=== PATIENT | female | born 1975 | race Caucasian/White ===

== ENCOUNTER 2020-08-14 17:36 | Outpatient (REF) | payer OTHER, SELFPAY | END 2020-08-14 17:37 | disposition home or self-care (01) | LOC: HO.LAB 17:36 | PROVIDERS: PCP Internal Medicine; Visit Provider Internal Medicine | DX: Z20.828 Contact with and (suspected) exposure to other viral communicable diseases (principal) | CPT/HCPCS: C9803; U0003 ==

== ENCOUNTER 2020-10-31 15:40 | Outpatient (REF) | payer OTHER, SELFPAY ==
--- NOTE | ~2020-10-31 | US_ITS ---
EXAMINATION: US THYROID CLINICAL INFORMATION: Nontoxic goiter, unspecified. COMPARISON: Ultrasound soft tissue head/neck thyroid dated 03/12/2010. TECHNIQUE: Linear transducer grayscale and color Doppler examination with attention to the region of the thyroid. FINDINGS: SIZE: Measurements of the thyroid lobes and nodules are given in sagittal, anteroposterior and transverse dimensions respectively. Right Thyroid Lobe: 5.6 x 1.2 x 1.7 cm, volume 6.0 mL. Previously 5.1 x 1.1 x 1.9 cm, volume 5.6 mL. Parenchyma: The gland echotexture is homogeneous. Thyroid vascularity is normal. Left Thyroid Lobe: 5.3 x 1.5 x 2.0 cm, volume 8.3 mL. Previously 5.0 x 1.3 x 1.9 cm, volume 6.5 mL. Parenchyma: The gland echotexture is homogeneous. Thyroid vascularity is normal. Isthmus: 0.3 cm in maximum AP dimension. Previously 0.2 cm. Estimated total number of nodules greater than or equal to 1 cm: 0. International Marketing Intern nodules are described as follows: 1. Location: Right superior. Size: 0.9 x 0.8 x 0.9 cm, volume 0.3 mL. Previously: 1.0 x 0.6 x 0.7 cm, volume 0.2 mL. Nodule characteristics: Composition: Mixed cystic and solid (1). Echogenicity: Hypoechoic (2). Shape: Not taller than wide (0). Margins: Smooth (0). Echogenic Foci: None (0). ACR TI-RADS total points: 3 ACR TI-RADS category: 3 Significant change in size (>/= 20% in 2 dimensions and minimal increase of 2 mm): No Change in features: No Change in ACR TI-RADS risk category: No 2. Location: Right mid. Size: 0.6 x 0.4 x 0.5 cm, volume 0.1 mL. Previously: 0.8 x 0.5 x 0.6 cm, volume 0.1 mL. Nodule characteristics: Composition: Spongiform (0). Echogenicity: 2 Shape: 0 Margins: 0 Echogenic Foci: 0 ACR TI-RADS total points: 0 ACR TI-RADS category: 1 Significant change in size (>/= 20% in 2 dimensions and minimal increase of 2 mm): No Change in features: No Change in ACR TI-RADS risk category: No 3. Location: Right inferior. Size: 0.5 x 0.4 x 0.4 cm, volume 0.05 mL. Previously: New since prior study. Nodule characteristics: Composition: Spongiform (0). Echogenicity: 2 Shape: Not taller than wide (0). Margins: No Echogenic Foci: No ACR TI-RADS total points: 0 ACR TI-RADS category: 1 Significant change in size (>/= 20% in 2 dimensions and minimal increase of 2 mm): Change in features: Change in ACR TI-RADS risk category: 4. Location: Left superior. Size: 0.5 x 0.3 x 0.4 cm, volume 0.03 mL. Previously: 0.5 x 0.2 x 0.4 cm, volume 0.02 mL. Nodule characteristics: Composition: Spongiform (0). Echogenicity: 2 Shape: Not taller than wide (0). Margins: No Echogenic Foci: No ACR TI-RADS total points: 0 ACR TI-RADS category: 1 Significant change in size (>/= 20% in 2 dimensions and minimal increase of 2 mm): No Change in features: No Change in ACR TI-RADS risk category: No NODES: There are right cervical lymph nodes. Largest lymph node measures 1.6 cm in transverse dimension which is slightly enlarged. Lymph nodes demonstrate normal ultrasound morphology and flow. US/US thyroid IMPRESSION: Newly appreciated small nodule in the inferior right lobe. Otherwise thyroid nodules are stable. ACR TI-RADS RECOMMENDATIONS: Ultrasound-guided fine-needle aspiration, followup ultrasound, no further follow up. * TR1 (0 point) and TR 2 (2 points): No FNA or follow up * TR3 (3 points): FNA if more than or equal to 2.5 cm in maximum dimension, follow up in 1, 3 and 5 years if 1.5 to 2.4 cm in maximum dimension. * TR4 (4-6 points): FNA if more than or equal to 1.5 cm in maximum dimension, follow up in 1, 2, 3 and 5 years if 1 to 1.4 cm in maximum dimension. * TR5 (more than or equal to 7 points): FNA if more than or equal to 1 cm in maximum dimension, follow up every year for 5 years if 0.5 to 0.9 cm in maximum dimension. * TR3, TR4 or TR5 nodules that are below the size threshold for follow up receive no follow up.
== END 2020-10-31 15:41 | disposition home or self-care (01) ==
LOC: HO.US 15:40
PROVIDERS: Visit Provider Internal Medicine
DX: E04.9 Nontoxic goiter, unspecified (principal)
CPT/HCPCS: 76536

== ENCOUNTER 2021-06-27 10:21 | Outpatient (REF) | payer OTHER, SELFPAY | END 2021-06-27 10:22 | disposition home or self-care (01) | LOC: HO.LAB 10:21 | PROVIDERS: PCP Internal Medicine; Visit Provider Internal Medicine | DX: Z20.822 Contact with and (suspected) exposure to COVID-19 (principal) | CPT/HCPCS: C9803; U0003; U0005 ==

== ENCOUNTER 2021-08-18 14:21 | Emergency (ER) | payer OTHER, SELFPAY ==
--- NOTE | ~2021-08-18 | XR_ITS ---
EXAMINATION: XR CHEST CLINICAL INFORMATION: Upper respiratory infection COMPARISON: 09/03/2019 TECHNIQUE: 2 views of the chest were obtained. FINDINGS: No significant abnormality is noted involving the heart, lungs, mediastinum, bony thorax or soft tissues. XR/XR chest 2V IMPRESSION: Unremarkable examination.
[2021-08-18 14:55] VITALS: BP 174/89; PULSE 94; RESP 18; TEMP 37.1; O2SAT 100; BMI 31.3
[2021-08-18 15:30] LABS: COVID-19 Test Negative (Negative)
--- NOTE | 2021-08-18 17:59 | ED_ITS ---
HPI - URI/Sore Throat General Chief Complaint: Upper Respiratory Symptoms Stated Complaint: flu like Source: patient Mode of arrival: ambulatory Limitations: language barrier History of Present Illness HPI Narrative: 46-year-old female presents with 3 days of upper respiratory symptoms, cough, intermittent fevers and chills. MD elicited complaint: fever, cough, sore throat and nasal congestion Onset (ago): day(s) (3) Consistency: constant Severity: moderate Description of mucous: clear and watery Able to tolerate fluids by mouth: Yes Exacerbating factors: swallowing, exertion and speaking Relieving factors: nothing Associated symptoms: fever, chills, headache, nasal congestion, sore throat and cough Treatments prior to arrival: acetaminophen Related Data Previous Rx's Medication Instructions Recorded lisinopril 10 mg tablet 10 mg PO DAILY #30 tab 10/18/20 loratadine 10 mg tablet 10 mg PO DAILY 30 Days #30 tab 10/18/20 Allergies Allergy/AdvReac Type Severity Reaction Status Date / Time gluten [GLUTEN] Allergy Intermediate HIVES Verified 10/18/20 16:46 ciprofloxacin [From [facility]] Allergy Unknown UNKNOWN Verified 10/18/20 16:46 PEPPERS Allergy Severe HIVES Uncoded 10/18/20 16:46 Review of Systems Review of Systems: Constitutional: positive Fever, positive Chills, positive fatigue, positive Malaise ENT/Mouth: positive sore throat, positive runny nose Eyes: No Discharge Cardiovascular: No Chest Pain, No SOB Respiratory: Positive Cough, No Sputum, positive Wheezing, No Smoke Exposure, No Dyspnea Gastrointestinal: No Nausea, No Vomiting, No Diarrhea Genitourinary: no irregular bleeding, No Dysuria, No Urinary Frequency, No Hematuria, No Urinary Incontinence, No Urgency, No Flank Pain, Musculoskeletal: positive Myalgia Skin: No rash Neuro: No Headache Yes all other systems are reviewed and are negative PMFSH Past Medical History Attestation statement: The following information was validated with the patient. Source: old records reviewed Medical History Allergic rhinitis Essential hypertension Goiter Impaired glucose tolerance Surgical History History of adenoidectomy Family History Family History Mother Hypertension CVD (cardiovascular disease) Breast cancer Pacemaker Father Hypertension Diabetes Parkinson's disease Brother In good health Brother In good health Son In good health Son In good health Daughter In good health Family/Other Chronic mental illness Social History Social History Alcohol intake: never Advance Directives: No Advance Directives Information Provided: Yes Patient : No Physical Exam Vital Signs: Vital Signs: Last Vital Signs Temp 98.8 F 08/18/21 14:55 Pulse 94 08/18/21 14:55 Resp 18 08/18/21 14:55 BP 174/89 H 08/18/21 14:55 Pulse Ox 100 08/18/21 14:55 BMI result Body Mass Index 31.3 Appearance: Alert. Oriented X3. No acute distress. Eyes: Pupils equal, round and reactive to light. ENT: Pharynx normal. Neck: Normal inspection. Neck supple. No cervical lymphadenopathy noted. CVS: Normal heart rate and rhythm. Pulses normal. Respiratory: No respiratory distress. Lung sounds clear to auscultation all lobes. Abdomen: Soft and nontender. Skin: Skin warm and dry. Normal skin color. Normal skin turgor. Extremities: No lower extremity edema. Gait will balance well coordinated. Neuro: No motor deficit. No sensory deficit. Cranial nerves 2-12 intact. Course Course Course Narrative: 46-year-old female presents with upper respiratory symptoms. COVID test negative. Will order x-rays to rule out pneumonia. Lung sounds clear to auscultation all lobes. No chest wall tenderness or pain on inspiration. O2 sat 100%. Low risk for PE. History of clotting deficiency, immuno therapy, surgery, or long periods of inactivity. No prior history of clotting. 7:15 p.m. chest x-rays negative for pneumonia. Plan of care to discharge home with supportive measures. Patient verbalized understanding of and agrees to plan of care discharge home. administrative medical director utilized for all correspondence MDM - URI/Sore Throat Differential Diagnosis Differential diagnosis: Likely upper respiratory infection, otitis media, sinusitis, viral infection, bronchitis, influenza and pharyngitis Medical Records Attestation: I reviewed the patient's medical records. Lab Data Attestation: I reviewed the patient's lab results. Labs: Lab Results 08/18/21 Range/Units 14:59 COVID-19 ([facility]) Negative (Negative) COVID-19 Clin Com See Note Imaging Data Chest x-ray: Attestation: I personally reviewed and interpreted this imaging study as follows: Radiologist's impression: EXAMINATION: XR CHEST CLINICAL INFORMATION: Upper respiratory infection COMPARISON: 09/03/2019 TECHNIQUE: 2 views of the chest were obtained. FINDINGS: No significant abnormality is noted involving the heart, lungs, mediastinum, bony thorax or soft tissues. XR/XR chest 2V IMPRESSION: Unremarkable examination. Discharge Plan Discharge Clinical Impression: Upper respiratory infection Patient Disposition: Home, Self-Care Instructions: Upper Respiratory Infection (ED), Viral Syndrome (ED) Additional Instructions: You were evaluated for upper respiratory symptoms. Her chest x-ray is negative for acute findings requiring emergent intervention. Please alternate Tylenol and Motrin for pain and fever management. Drink plenty of fluids. Follow-up with primary care physician later this week if needed. Thank you for choosing this emergency department for evaluation. Please follow-up with primary care physician as needed. Return to the emergency department for any new, concerning, or worsening symptoms. Prescriptions: No Action lisinopril 10 mg tablet 10 mg PO DAILY Qty: 30 RF: 11 loratadine 10 mg tablet 10 mg PO DAILY 30 Days Qty: 30 RF: 6 Interventions: ED Discharge Assessment Last Done: 08/18/21 19:31 Discharge Date/Time: 08/18/21 19:33
[2021-08-18] MEDS: Ibuprofen 600 MG TABLET PO (18:53)
== END 2021-08-18 19:33 | disposition home or self-care (01) ==
PROVIDERS: Emergency Provider Emergency Medicine Emergency Medical Services; PCP Internal Medicine
DX: J06.9 Acute upper respiratory infection, unspecified (principal); I10 Essential (primary) hypertension; Z20.822 Contact with and (suspected) exposure to COVID-19
CPT/HCPCS: 36415; 71046; 87635; 99283; 99284

== ENCOUNTER 2022-09-17 17:55 | Outpatient (REF) | payer OTHER, SELFPAY ==
[2022-09-17 18:48] LABS: Influenza A PCR NEGATIVE (Negative); Influenza B PCR NEGATIVE (Negative); Resp Syncy Virus RNA Qual PCR NEGATIVE (Negative); SARS COV2 PCR INHOUSE POSITIVE (Negative)
== END 2022-09-17 17:56 | disposition home or self-care (01) ==
LOC: HO.LNP 17:55
PROVIDERS: Visit Provider Internal Medicine
DX: Z20.822 Contact with and (suspected) exposure to COVID-19 (principal); R43.9 Unspecified disturbances of smell and taste
CPT/HCPCS: 0241U

== ENCOUNTER 2022-10-15 09:42 | Outpatient (REF) | payer OTHER, SELFPAY ==
--- NOTE | ~2022-10-15 | MM_ITS ---
EXAMINATION: MM SCREENING DIGITAL BREAST TOMOSYNTHESIS, BILATERAL CLINICAL INFORMATION: Screening. Asymptomatic. Family history breast cancer, mother. The lifetime risk of breast cancer based on the Tyrer-Cuzick Model is 23%. COMPARISON: Mammography: 11/19/2017; outside mammography 12/01/2014 ([facility]). TECHNIQUE: Digital breast tomosynthesis is performed in both the craniocaudal and mediolateral oblique views along with computer-aided detection (CAD). Synthesized 2D images are generated from the tomosynthesis. FINDINGS: There are scattered areas of fibroglandular density (ACR BI-RADS breast composition Category b). Breast tissue composition borders on heterogeneously dense. There is no significant mass or architectural abnormality. Small nodular asymmetry anterior outer right breast on CC view is stable. There are scattered punctate calcifications in each breast again seen. No interval abnormal calcifications. The skin contours are smooth. There is prominent left axillary node on MLO view 2.4 cm diameter with thickening cortex. This is beyond field of view on prior breast imaging. MM/MM tomosynthesis screening BI IMPRESSION: Left: -Breast parenchymal pattern similar to prior studies. -Prominent left axillary node, not previously imaged. Right: -No mammographic evidence of malignancy. ASSESSMENT: BI-RADS 0: Incomplete - Need Additional Imaging Evaluation RECOMMENDATION: 1. Targeted ultrasound left axilla. 2. Radiology department staff will contact the patient for additional imaging. This patient's information was entered into a reminder system with a target due date for their next mammogram.
--- NOTE | ~2022-10-15 | US_ITS ---
EXAMINATION: US THYROID CLINICAL INFORMATION: Nontoxic goiter, unspecified. COMPARISON: Thyroid ultrasound examinations dated October 31, 2020 and March 12, 2010. Fine-needle aspiration dated April 09, 2010. TECHNIQUE: Linear transducer grayscale and color Doppler examination with attention to the region of the thyroid. FINDINGS: SIZE: Measurements of the thyroid lobes and nodules are given in sagittal, anteroposterior and transverse dimensions respectively. Right Thyroid Lobe: 5.2 x 1.2 x 1.9 cm, volume 6.3 mL. Previously 5.6 x 1.2 x 1.7 cm, volume 6.0 mL. Parenchyma: The gland echotexture is homogeneous. Thyroid vascularity is normal. Left Thyroid Lobe: 5.4 x 1.6 x 1.6 cm, volume 7.6 mL. Previously 5.3 x 1.5 x 2.0 cm, volume 8.3 mL. Parenchyma: The gland echotexture is homogeneous. Thyroid vascularity is normal. Isthmus: 0.3 cm in maximum AP dimension. Previously 0.3 cm. Estimated total number of nodules greater than or equal to 1 cm: 1. Rig Manager nodules are described as follows: 1. Location: Right superior. Size: 0.9 x 0.7 x 0.9 cm, volume 0.3 mL. Previously: 0.9 x 0.8 x 0.9 cm, volume 0.3 mL. In 2010 this measured 1.0 x 0.6 x 0.7 cm. Nodule characteristics: Composition: Solid (2). Echogenicity: Very hypoechoic (3). Shape: Not taller than wide (0). Margins: Ill-defined (0). Echogenic Foci: None (0). ACR TI-RADS total points: 5 Previous: 3 ACR TI-RADS category: 4 Previous: 3 Significant change in size (>/= 20% in 2 dimensions and minimal increase of 2 mm or 50% or greater increase in volume): No Change in features: No Change in ACR TI-RADS risk category: No 2. Location: Right mid. Size: 0.7 x 0.3 x 0.6 cm, volume 0.07 mL. Previously: 0.6 x 0.4 x 0.5 cm, volume 0.06 mL. Nodule characteristics: Composition: Solid (2). Echogenicity: Hypoechoic (2). Shape: Not taller than wide (0). Margins: Ill-defined (0). Echogenic Foci: None (0). ACR TI-RADS total points: 4 Previous: 4 ACR TI-RADS category: 4 Previous: 4 Significant change in size (>/= 20% in 2 dimensions and minimal increase of 2 mm or 50% or greater increase in volume): No Change in features: No Change in ACR TI-RADS risk category: No 3. Location: Right inferior. Size: 0.6 x 0.4 x 0.3 cm, volume 0.04 mL. Previously: 0.5 x 0.4 x 0.4 cm, volume 0.04 mL. Nodule characteristics: Composition: Solid (2). Echogenicity: Hypoechoic (2). Shape: Not taller than wide (0). Margins: Ill-defined (0). Echogenic Foci: None (0). ACR TI-RADS total points: 4 Previous: 4 ACR TI-RADS category: 4 Previous: 4 Significant change in size (>/= 20% in 2 dimensions and minimal increase of 2 mm or 50% or greater increase in volume): No Change in features: No Change in ACR TI-RADS risk category: No 4. Location: Left superior. Size: 0.5 x 0.4 x 0.3 cm, volume 0.03 mL. Previously: 0.5 x 0.3 x 0.4 cm, volume 0.03 mL. Nodule characteristics: Composition: Solid/almost completely solid (2). Echogenicity: Isoechoic (1). Shape: Not taller than wide (0). Margins: Ill-defined (0). Echogenic Foci: None (0). ACR TI-RADS total points: 4 Previous: 4 ACR TI-RADS category: 4 Previous: 4 Significant change in size (>/= 20% in 2 dimensions and minimal increase of 2 mm or 50% or greater increase in volume): No Change in features: No Change in ACR TI-RADS risk category: No 5. Location: Left superior mid. Size: 1.0 x 0.7 x 0.8 cm, volume 0.3 mL. Previously: Not demonstrated. Nodule characteristics: Composition: Mixed cystic and solid (1). Echogenicity: Anechoic (0). Shape: Not taller than wide (0). Margins: Smooth (0). Echogenic Foci: None (0). ACR TI-RADS total points: 1 ACR TI-RADS category: 0 NODES: Right: Level III: Node #1: 0.9 x 0.5 cm in transverse dimension by 1.5 cm in longitudinal dimension. Normal fatty hilum. In October 2020 a right cervical node labeled zone 2 measured 0.8 x 0.4 cm in transverse dimension by 1.6 cm in longitudinal dimension, and also demonstrated a normal fatty hilum. US/US thyroid IMPRESSION: 0.9 cm or less TI-RADS category 4 thyroid nodules, as detailed above. No further dedicated follow up imaging of these nodules is indicated, per ACR recommendation. 0.9 x 0.5 cm in transverse dimension by 1.5 cm in longitudinal dimension right cervical lymph node labeled level III by the technologist. Normal fatty hilum. In October 2020 a right cervical node labeled zone 2 measured 0.8 x 0.4 cm in transverse dimension by 1.6 cm in longitudinal dimension, and also demonstrated a normal fatty hilum. ACR TI-RADS RECOMMENDATION REFERENCE: Ultrasound-guided fine-needle aspiration, followup ultrasound, no further follow up. * TR1 (0 point) and TR2 (2 points): No FNA or follow up. * TR3 (3 points): FNA if more than or equal to 2.5 cm in maximum dimension, followup ultrasound in 1, 3 and 5 years if 1.5 to 2.4 cm in maximum dimension. * TR4 (4-6 points): FNA if more than or equal to 1.5 cm in maximum dimension, followup ultrasound in 1, 2, 3 and 5 years if 1 to 1.4 cm in maximum dimension. * TR5 (more than or equal to 7 points): FNA if more than or equal to 1 cm in maximum dimension, followup ultrasound every year for 5 years if 0.5 to 0.9 cm in maximum dimension. * TR3, TR4 or TR5 nodules that are below the size threshold for followup receive no follow up.
== END 2022-10-15 09:43 | disposition home or self-care (01) ==
LOC: HO.MAMMO 09:42
PROVIDERS: PCP Internal Medicine; Visit Provider Nurse Practitioner Family
DX: E04.9 Nontoxic goiter, unspecified (principal); R13.10 Dysphagia, unspecified; Z12.31 Encounter for screening mammogram for malignant neoplasm of breast
CPT/HCPCS: 76536; 77063; 77067

== ENCOUNTER 2022-10-21 11:05 | Outpatient (REF) | payer OTHER, SELFPAY ==
--- NOTE | ~2022-10-21 | US_ITS ---
EXAMINATION: US DIAGNOSTIC ULTRASOUND BREAST, LEFT AXILLA CLINICAL INFORMATION: Prominent left axillary lymph node. COMPARISON: Mammography of 10/15/2022 and studies dating back to 12/01/2014. TECHNIQUE: Ultrasound of the breast is performed with real-time weaver scale imaging and color Doppler. FINDINGS: Scanning of the left axilla demonstrates multiple lymph nodes, one of which has a thickened cortex with minimal lobulation measuring up to 5 mm in diameter. There is normal fatty hilum without lymph node infiltration identified. Patient states that she had a left arm injection 3-4 weeks ago. Recommend 6-month followup left axillary ultrasound. Results are discussed with the patient at time of visit. US/US breast LT limited IMPRESSION: Prominent left axillary lymph node with cortex measuring up to 5 mm in diameter. Six-month followup ultrasound suggested. ASSESSMENT: BI-RADS 3: Probably benign. RECOMMENDATION: Diagnostic mammography in 6 months. This patient's information was entered into a reminder system with a target due date for their next mammogram.
== END 2022-10-21 11:06 | disposition home or self-care (01) ==
LOC: HO.MAMMO 11:05
PROVIDERS: PCP Nurse Practitioner Family; Visit Provider Nurse Practitioner Family
DX: R59.0 Localized enlarged lymph nodes (principal)
CPT/HCPCS: 76642

== ENCOUNTER 2022-10-24 08:48 | Outpatient (REF) | payer OTHER, SELFPAY ==
[2022-10-24 08:57] LABS: MANUAL DIFF FLAG NO
[2022-10-24 09:22] LABS: Basophils Percent Auto 0.3 % (0-2); Eosinophils Absolute Auto 0.2 X10*3/uL (0.0-0.4); Hematocrit 31.3 % (37.0-47.0); Imm Gran Abs Auto 0.03 X10*3/uL (0.00-0.03); Imm Gran Pct Auto 0.3 % (0.0-0.4); Lymphocytes Absolute Auto 2.6 X10*3/uL (1.2-4.9); Lymphocytes Percent Auto 22.1 % (20-40); Mean Corpuscular HGB Conc 28.8 g/dl (31.0-35.0); Mean Corpuscular Hemoglobin 19.6 pg (27.0-33.0); Mean Platelet Volume 11.2 fL (9.4-12.3); Monocytes Absolute Auto 0.9 X10*3/uL (0.1-1.2); Monocytes Percent Auto 7.3 % (2-11); Platelet Count 365 X10*3/uL (160-400); Red Cell Distribution Width 20.2 % (11.0-16.0); White Blood Count 11.7 X10*3/uL (4.8-10.8)
[2022-10-24 09:40] LABS: Estimated Average Glucose 108 mg/dL; Hemoglobin A1c % 5.4 %
[2022-10-24 10:14] LABS: Alanine Aminotransferase 12 U/L (0-31); Albumin Level 4.1 g/dL (3.5-5.0); Alkaline Phosphatase 102 U/L (39-117); Anion Gap 13 (12-20); Aspartate Amino Transferase 14 U/L (5-31); Bilirubin Total 0.7 mg/dL (0.0-1.0); Blood Urea Nitrogen 12 mg/dL (9-16); Calcium 9.4 mg/dL (8.4-10.2); Carbon Dioxide 25 mmol/L (22-29); Chloride 104 mmol/L (96-108); Cholesterol 141 mg/dL; Estimated Glomerular Filt Rate > 60; Glucose Fasting 101 mg/dL (60-99); HDL Cholesterol 44 mg/dL; LDL Cholesterol Calculated 83 mg/dl; Potassium 4.4 mmol/L (3.3-5.1); Sodium 138 mmol/L (135-145); Total Protein 7.2 g/dL (6.5-8.0); Triglycerides 71 mg/dL
[2022-10-24 10:29] LABS: Vitamin D 25-OH Total 15.6 ng/mL (>30)
== END 2022-10-24 08:49 | disposition home or self-care (01) ==
LOC: HO.LAB 08:48
PROVIDERS: PCP Internal Medicine; Visit Provider Nurse Practitioner Family
DX: I10 Essential (primary) hypertension (principal); R73.02 Impaired glucose tolerance (oral)
CPT/HCPCS: 36415; 80053; 80061; 82306; 83036; 84443; 85025

== ENCOUNTER → 2022-10-30 12:48 | Outpatient (BNVA) | payer OTHER, SELFPAY | PROVIDERS: PCP Internal Medicine; Visit Provider Surgery Vascular Surgery | DX: I83.12 Varicose veins of left lower extremity with inflammation (principal) | CPT/HCPCS: 99212 ==

== ENCOUNTER 2023-01-02 10:24 | Outpatient (REF) | payer OTHER, SELFPAY ==
--- NOTE | ~2023-01-02 | US_ITS ---
EXAMINATION: US LOWER EXTREMITY VENOUS (REFLUX EXAM), BILATERAL CLINICAL INDICATION: Chronic venous insufficiency with lower extremity varicose veins, pain and inflammation COMPARISON: None. TECHNIQUE: Color flow triplex imaging and compression Doppler was performed to evaluate both the deep and the superficial systems bilaterally. To evaluate the superficial system, the examination was performed in the upright position. Color-flow Doppler ultrasound and compression ultrasound were utilized. In addition, maneuvers were utilized to demonstrate reflux. FINDINGS: 1. DEEP VENOUS ULTRASOUND OF THE RIGHT LOWER EXTREMITY: Common Femoral Vein: Compressible, normal respiratory variation and augmented flow. Femoral Vein: Compressible, normal color flow and augmentation. Popliteal Vein: Compressible, normal augmentation. Deep Reflux: There is no evidence of reflux in the deep system in either the common femoral vein or the popliteal vein. There is no evidence of a Rowe's cyst. 2. SUPERFICIAL ULTRASOUND WITH DOPPLER OF RIGHT LOWER EXTREMITY: GREAT SAPHENOUS VEIN: Saphenofemoral Junction: 0.8 cm; Reflux: 0 ms Proximal Thigh: 0.4 cm; Reflux: 0 ms Mid Thigh: 0.3 cm; Reflux: 0 ms Above Knee: 0.3 cm; Reflux: 0 ms At Knee: 0.2 cm; Reflux: 0 ms Below Knee: 0.3 cm; Reflux: 0 ms Mid Calf: 0.2 cm; Reflux: 0 ms Ankle: 0.2 cm; Reflux: 0 ms DUPLICATED MEDIAL GREAT SAPHENOUS VEIN: Diameter: None Imaged Reflux: NA DUPLICATED LATERAL GREAT SAPHENOUS VEIN: Diameter: 0.5 cm Reflux: None SMALL SAPHENOUS VEIN: Proximal: 0.4 cm; Reflux: 0 ms Distal: 0.3 cm; Reflux: 0 ms VEIN OF GIACOMINI: None Imaged. PERFORATORS: Location: Calf Size: 0.3 cm Reflux: None VARICOSITIES: Location: Proximal thigh Size: 0.3 cm Reflux: None 3. DEEP VENOUS ULTRASOUND OF THE LEFT LOWER EXTREMITY: Common Femoral Vein: Compressible, normal respiratory variation and augmented flow. Femoral Vein: Compressible, normal color flow and augmentation. Popliteal Vein: Compressible, normal augmentation. Deep Reflux: There is no evidence of reflux in the deep system in either the common femoral vein or the popliteal vein. There is no evidence of a Rowe's cyst. 4. SUPERFICIAL ULTRASOUND WITH DOPPLER OF LEFT LOWER EXTREMITY: GREAT SAPHENOUS VEIN: Saphenofemoral Junction: 1.3 cm; Reflux: 0 ms Proximal Thigh: 0.4 cm; Reflux: 0 ms Mid Thigh: 0.2 cm; Reflux: 0 ms Above Knee: 0.2 cm; Reflux: 0 ms At Knee: 0.2 cm; Reflux: 0 ms Below Knee: 0.2 cm; Reflux: 0 ms Mid Calf: 0.2 cm; Reflux: 0 ms Ankle: 0.1 cm; Reflux: 0 ms DUPLICATED MEDIAL GREAT SAPHENOUS VEIN: Diameter: None Imaged Reflux: NA DUPLICATED LATERAL GREAT SAPHENOUS VEIN: Diameter: 0.5 cm Reflux: None SMALL SAPHENOUS VEIN: Proximal: 0.3 cm; Reflux: 0 ms Distal: 0.3 cm; Reflux: 0 ms VEIN OF GIACOMINI: None Imaged. PERFORATORS: Location: None significant Size: NA Reflux: NA VARICOSITIES: Location: None Imaged Size: NA Reflux: NA US/US venous duplex LE BI IMPRESSION: Right: No significant venous insufficiency/reflux in the great saphenous or small saphenous veins Left: No significant venous insufficiency/reflux in the great saphenous or small saphenous veins
== END 2023-01-02 10:25 | disposition home or self-care (01) ==
LOC: HO.US 10:24
PROVIDERS: PCP Internal Medicine; Visit Provider Surgery Vascular Surgery
DX: I83.893 Varicose veins of bilateral lower extremities with other complications (principal)
CPT/HCPCS: 93970

== ENCOUNTER → 2023-02-17 13:49 | Outpatient (BNVA) | payer OTHER, SELFPAY | PROVIDERS: PCP Internal Medicine; Visit Provider Surgery Vascular Surgery | DX: I83.12 Varicose veins of left lower extremity with inflammation (principal) | CPT/HCPCS: 99212 ==

== ENCOUNTER 2023-04-15 16:45 | Outpatient (AMB) | payer OTHER, SELFPAY ==
--- NOTE | 2023-04-15 16:49 | MHC.PC.OV ---
Vital Signs 04/15/23 16:50 04/15/23 19:05 Height 5 ft 9 in Weight 200 lb BMI 29.5 BP 170/92 H 170/90 H Blood Pressure Location Lt brachial Lt brachial Position Sitting Sitting Intake Visit Reasons: bp Intake Note: Patient here for a follow up BP, referral to SOFTWARE INTEGRATOR request Moving Worker Required: No Accompanied by: Self / Same As Patient Allergies gluten [GLUTEN] Allergy (Intermediate, Verified 04/15/23 17:00) HIVES ciprofloxacin [From CIPRO] Allergy (Unknown, Verified 04/15/23 17:00) UNKNOWN PEPPERS Allergy (Severe, Uncoded 04/15/23 17:00) HIVES Medication List - Last Reconciled 04/15/23 by Madhavi Mc MD ascorbic acid (vitamin C) 250 mg PO DAILY cholecalciferol (vitamin D3) 50 mcg PO DAILY ferrous sulfate 325 mg PO BID lisinopril 30 mg PO DAILY 90 days loratadine 10 mg PO DAILY 30 days Tobacco use date assessed: 12/11/22 Dental Screening Dental Screen Date: 04/15/23 Did you have a dental visit in the last 12 months?: Yes Did you have a dental problem in the last 6 months where you did not have access to dental care?: No Was dental information given to patient?: Patient has dentist HPI HPI Comments History of Present Illness Details This is a 47-year-old female with hypertension, iron-deficiency anemia due to chronic blood loss, allergic rhinitis and low vitamin-D that comes today for follow-up on her conditions. Blood pressure elevated and I will increase lisinopril from 30 mg to 40 mg. Blood pressure will be recheck by nurse navigator in 3 weeks. Last hemoglobin was low secondary to menometrorrhagia and hemoglobin will be repeated. Allergic rhinitis stable with antihistamines as needed. On vitamin-D supplements for low vitamin-D in which levels will be recheck. Denies any chest pain or shortness of breath. Complains of menstrual cramps and would like to see OBGYN. FORMERLY [facility], [facility] Medical History (Updated 04/15/23 @ 19:07 by Madhavi Mc MD) Allergic rhinitis Essential hypertension Goiter Impaired glucose tolerance Surgical History History of adenoidectomy Family History Mother Hypertension CVD (cardiovascular disease) Breast cancer Pacemaker Father Hypertension Diabetes Parkinson's disease Brother In good health Brother In good health Son In good health Son In good health Daughter In good health Family/Other Chronic mental illness Social History Housing: House Alcohol intake: never Patient Tobacco Use Status: Never used Tobacco e-Cigarette/Vaping Use: Never Used Second Hand Smoke Exposure: No service: No Current occupational status: unemployed Cognitive needs: No Hearing needs: No Vision needs: No Questionnaire Thrive Questionnaire Date Thrive assessed: 12/11/22 CHELE-7 AMB Questionnaire CHELE-7 Date CHELE - 7 assessed: 12/11/22 Source: Developed by Drs. Aquiles Damian, Sharyn Sung, Richy Maguire and colleagues, with an educational no from [employer]. Review of Systems Const All systems reviewed & are unremarkable except as noted in HPI and below Eyes Reports no additional complaints, Denies change in vision and Denies other visual disturbances Card Denies chest pain at rest, Denies chest pain with activity, Denies edema, Denies irregular heart rhythm, Denies claudication, Denies dyspnea, Denies dyspnea on exertion, Denies orthopnea, Denies paroxysmal nocturnal dyspnea and Denies slow heart rate Resp Denies cough, Denies dyspnea and Denies dyspnea on exertion GI Denies abdominal pain, Denies change in bowel habits, Denies excessive flatus, Denies nausea and Denies vomiting Denies urinary incontinence, Denies urinary hesitancy and Denies urinary urgency Musc Denies abnormal gait, Denies atrophy, Denies deformity and Denies limited range of motion Skin/Breast Denies bleeding lesions, Denies changing lesions and Denies rash Neuro Denies abnormal gait and Denies lack of coordination Physical exam (Primary Care) Vital Signs: Last Vital Signs BP 170/92 H 04/15/23 16:50 BMI result Body Mass Index 29.5 Tobacco/Smoking Status: Tobacco use Status Tobacco use date assessed 12/11/22 04/15/23 16:55 Patient Tobacco Use Status Never used Tobacco 04/15/23 16:55 e-Cigarette/Vaping Use Never Used 04/15/23 16:55 Thrive Assessment: Date of Thrive Assessment Date Thrive assessed 12/11/22 04/15/23 16:55 Eyes General: appearance normal, both eyes and all related structures Eyelids: Yes eyelids normal Conjunctivae: conjunctivae normal Neck Neck: Yes normal visual inspection and Yes supple Resp Effort & Inspection: normal respiratory effort Auscultation: clear to auscultation bilaterally Cardio Jugular venous distension: no JVD Rate: regular rate Rhythm: regular rhythm Heart sounds: S1 normal heart sound present and S2 normal heart sound present Extrem General: Yes full ROM Assessment and Plan Assessment & Plan (1) Essential hypertension: Code(s): I10 - Essential (primary) hypertension Plan: Increase lisinopril from 30 mg to 40 mg once a day. Blood pressure goal is equal or less than 130/80. Recheck blood pressure with nurse navigator in 3 weeks. (2) Allergic rhinitis: Code(s): J30.9 - Allergic rhinitis, unspecified Plan: Continue antihistamines as needed. (3) Iron deficiency anemia due to chronic blood loss: Code(s): D50.0 - Iron deficiency anemia secondary to blood loss (chronic) Plan: Continue ferrous sulfate with vitamin-C. Repeat hemoglobin. (4) Low vitamin D level: Code(s): R79.89 - Other specified abnormal findings of blood chemistry Plan: Continue vitamin-D supplements. Orders: Orders Complete Blood Count Auto Diff Today D64.9 - Anemia, unspecified IRON PROFILE Today D64.9 - Anemia, unspecified Vitamin D 25-OH Total Today E55.9 - Vitamin D deficiency, unspecified Referrals SOFTWARE INTEGRATOR Referral N92.1 - Excessive and frequent menstruation with irregular cycle Medications: New lisinopril 40 mg PO DAILY 90 days 90 tabs 1RF Refilled ascorbic acid (vitamin C) 250 mg PO DAILY 60 tabs 0RF D64.9 - Anemia, unspecified cholecalciferol (vitamin D3) 50 mcg PO DAILY 90 tabs 0RF R79.89 - Other specified abnormal findings of blood chemistry ferrous sulfate 325 mg PO BID 60 tabs 6RF D64.9 - Anemia, unspecified loratadine 10 mg PO DAILY 30 days 30 tabs 6RF Discontinued lisinopril Discontinued Reason: Patient Completed Course 30 mg PO DAILY 90 days 90 tabs 1RF Coding Level of Care Code Est Pt Level 4 (75608) Diagnoses Essential hypertension I10 Allergic rhinitis J30.9 Iron deficiency anemia due to chronic blood loss D50.0 Low vitamin D level R79.89 Time Spent (min) 23
[2023-04-15 16:50] VITALS: BP 170/92; BMI 29.5
[2023-04-15 19:05] VITALS: BP 170/90
== END 2023-04-15 17:10 | disposition home or self-care (01) ==
PROVIDERS: PCP Internal Medicine; Visit Provider Internal Medicine
DX: I10 Essential (primary) hypertension (principal); J30.9 Allergic rhinitis, unspecified; D50.0 Iron deficiency anemia secondary to blood loss (chronic); R79.89 Other specified abnormal findings of blood chemistry
CPT/HCPCS: 99214

== ENCOUNTER 2023-05-22 14:15 | Outpatient (REF) | payer OTHER, SELFPAY | END 2023-05-22 14:16 | disposition home or self-care (01) | LOC: HO.MAMMO 14:15 | PROVIDERS: PCP Internal Medicine; Visit Provider Nurse Practitioner Family | DX: Z13.89 Encounter for screening for other disorder (principal) ==

== ENCOUNTER 2023-06-29 12:10 | Outpatient (REF) | payer OTHER, SELFPAY ==
[2023-06-29 12:40] LABS: MANUAL DIFF FLAG NO
[2023-06-29 12:58] LABS: Basophils Percent Auto 0.3 % (0-2); Eosinophils Absolute Auto 0.2 X10*3/uL (0.0-0.4); Hematocrit 31.3 % (37.0-47.0); Hemoglobin 9.2 g/dl (12.0-16.0); Imm Gran Abs Auto 0.03 X10*3/uL (0.00-0.03); Imm Gran Pct Auto 0.3 % (0.0-0.4); Lymphocytes Absolute Auto 2.8 X10*3/uL (1.2-4.9); Lymphocytes Percent Auto 26.3 % (20-40); Mean Corpuscular HGB Conc 29.4 g/dl (31.0-35.0); Mean Corpuscular Hemoglobin 21.5 pg (27.0-33.0); Mean Corpuscular Volume 73.1 fL (80.0-98.0); Mean Platelet Volume 10.4 fL (9.4-12.3); Monocytes Absolute Auto 0.8 X10*3/uL (0.1-1.2); Monocytes Percent Auto 7.2 % (2-11); Neutrophils Absolute Auto 6.9 x10*3/uL (2.0-8.3); Neutrophils Percent Auto 63.9 % (45-73); Platelet Count 368 X10*3/uL (160-400); Red Blood Count 4.28 X10*6/uL (4.20-5.50); Red Cell Distribution Width 18.7 % (11.0-16.0); White Blood Count 10.7 X10*3/uL (4.8-10.8)
[2023-06-29 14:27] LABS: Iron 15 mcg/dL (30-160); Percent Iron Saturation 5 % (15-50); Total Iron Binding Capacity 321 mcg/dL (228-428); Unsaturated Iron Binding 306 ug/dL
[2023-06-29 14:37] LABS: Vitamin D 25-OH Total 17.5 ng/mL (>30)
== END 2023-06-29 12:11 | disposition home or self-care (01) ==
LOC: HO.LAB 12:10
PROVIDERS: PCP Internal Medicine; Visit Provider Internal Medicine
DX: E55.9 Vitamin D deficiency, unspecified (principal); D64.9 Anemia, unspecified
CPT/HCPCS: 36415; 82306; 83540; 85025

== ENCOUNTER 2023-07-03 15:21 | Outpatient (REF) | payer OTHER, SELFPAY ==
--- NOTE | ~2023-07-03 | US_ITS ---
EXAMINATION: US DIAGNOSTIC ULTRASOUND BREAST, LEFT CLINICAL INFORMATION: Evaluate left axillary lymphadenopathy, previously seen 10/21/2022. COMPARISON: 10/21/2022. Mammography 10/15/2022. TECHNIQUE: Ultrasound of the left axilla is performed with real-time weaver scale imaging and color Doppler. FINDINGS: There is a stable appearing mildly prominent lymph node with preserved fatty hilum, normal abilio architecture, and no evidence of hyperemia on color Doppler imaging. This demonstrates a minimally thickened cortex once again of approximately 4 mm. This is felt to represent a benign/reactive lymph node given preservation of abilio architecture. There are smaller normal-appearing lymph nodes in the left axilla abutting the larger node, all with cortices under 3 mm. No fluid collection, abnormal shadowing, or edema within the soft tissue planes. Results are discussed with the patient at time of visit. US/US breast LT limited mamm only IMPRESSION: Probably benign reactive lymph node left axilla with borderline thickened cortex 4 mm but preservation of normal abilio morphology. Additional 6 month follow-up targeted left axillary ultrasound is recommended in 6 months to assess for stability, when the patient is due for bilateral screening mammography. ASSESSMENT: BI-RADS 3: Probably Benign RECOMMENDATION: Diagnostic left axillary ultrasound in 6 months. This patient's information was entered into a reminder system with a target due date for their next mammogram.
== END 2023-07-03 15:22 | disposition home or self-care (01) ==
LOC: HO.MAMMO 15:21
PROVIDERS: PCP Internal Medicine; Visit Provider Nurse Practitioner Family
DX: N63.32 Unspecified lump in axillary tail of the left breast (principal)
CPT/HCPCS: 76642

== ENCOUNTER → 2023-07-03 15:30 | Outpatient (BNV) | payer OTHER, SELFPAY | PROVIDERS: PCP Internal Medicine; Visit Provider Radiology Diagnostic Radiology | DX: N63.32 Unspecified lump in axillary tail of the left breast (principal) | CPT/HCPCS: 76642 ==

== ENCOUNTER 2023-07-25 09:55 | Emergency (ER) | payer OTHER, SELFPAY ==
--- NOTE | ~2023-07-25 | CT_ITS ---
EXAMINATION: CT ABDOMEN AND PELVIS WITHOUT CONTRAST CLINICAL INFORMATION: Dysuria. Mild bilateral CVA tenderness. COMPARISON: None available. TECHNIQUE: Multidetector volumetric imaging was performed from the superior aspect of the liver through the pubic symphysis. Sagittal and coronal reformatted images were obtained on the technologist's workstation. This CT examination was performed using dose optimization techniques as appropriate, variously including the following: *Automated exposure control *Adjustment of mA and/or kV according to patient size (this includes techniques or standardized protocols for targeted exams where dose is matched to indication/reason for exam; i.e. extremities or head) *Use of iterative reconstruction technique DLP: 641 mGy-cm FINDINGS: LUNG BASES: The lung bases appear clear, with no evidence of inflammation or nodules. Suspect decreased blood pool density, raising suspicion for anemia. Heart normal in size. No pericardial effusion. LIVER, GALLBLADDER, AND BILIARY TREE: The liver appears unremarkable in size, shape, and attenuation. No focal hepatic lesion or biliary ductal dilatation is appreciated. Unremarkable appearance of the gallbladder. PANCREAS: Unremarkable SPLEEN: Unremarkable ADRENAL GLANDS: Unremarkable KIDNEYS AND URETERS: Approximately 2.5 cm benign left mid simple renal cyst for which no further dedicated follow up imaging is indicated. Mild normal variant congenital under rotation of the kidneys. The kidneys otherwise appear unremarkable in size, shape, and attenuation. No hydronephrosis, hydroureter, or calculi seen. BLADDER: Question mild diffuse thickening of the wall the urinary bladder. GASTROINTESTINAL TRACT: Unremarkable appearance of the stomach and small bowel. Colonic diverticula without evidence of diverticulitis. Normal-appearing distal ileum and vermiform appendix. ABDOMINAL WALL: No significant hernia is appreciated. LYMPH NODES: No evidence of adenopathy by size criteria. VASCULAR: Normal variant retroaortic left renal vein. PELVIC VISCERA: Approximately 5 cm subserosal/intramural leiomyoma involving the body of uterus and fundus toward the left, increased in size compared with 2016, at which time it measured approximately 2.5 cm, by my measurements. Approximately 8.6 cm length by 5 cm in diameter, oblong left adnexal fluid-containing structure which was not clearly evident as such in February 2016, suboptimally evaluated without the benefit of intravenous contrast. OSSEOUS STRUCTURES: Unremarkable CT/CT abdomen pelvis wo IV con IMPRESSION: No evidence of urinary tract stone or hydronephrosis. Question mild diffuse thickening of the wall the urinary bladder. Differential diagnosis includes, but is not limited to, cystitis. Recommend clinical correlation. Approximately 8.6 cm length by 5 cm in diameter, oblong left adnexal fluid-containing structure which was not clearly evident as such in February 2016, suboptimally evaluated without the benefit of intravenous contrast. Suspect posterior septation or fold. Recommend MR with IV contrast or surgical evaluation. Approximately 5 cm subserosal/intramural leiomyoma involving the body of uterus and fundus toward the left, increased in size compared with 2016, at which time it measured approximately 2.5 cm. Additional findings, as above.
[2023-07-25 09:56] VITALS: BP 176/94; PULSE 71; RESP 16; TEMP 36.1; O2SAT 100; BMI 28.7
--- NOTE | 2023-07-25 10:05 | ED_ITS ---
HPI - Female Genitourinary General Chief complaint: Urogenital-Female Stated complaint: diff urinating Time Seen by Provider: 07/25/23 10:01 Source: patient Mode of arrival: ambulatory Limitations: language barrier ( German-speaking medical technologist microbiology utilized) History of Present Illness HPI Narrative: patient is a 48-year-old female with past medical history of kidney stones presenting to the emergency department for evaluation of dysuria described as a severe burning sensation upon urination since last night. She has some suprapubic discomfort, denies abdominal pain or flank pain. Denies fevers, chills, nausea, vomiting. Denies rashes or lesions, she personally visualized this area Related Data Previous Rx's Medication Instructions Recorded ascorbic acid (vitamin C) 250 mg 250 mg PO DAILY #60 tabs 04/15/23 tablet cholecalciferol (vitamin D3) 50 50 mcg PO DAILY #90 tabs 04/15/23 mcg (2,000 unit) tablet ferrous sulfate 325 mg (65 mg 325 mg PO BID #60 tabs 04/15/23 iron) tablet lisinopril 40 mg tablet 40 mg PO DAILY 90 days #90 tabs 04/15/23 loratadine 10 mg tablet 10 mg PO DAILY 30 days #30 tabs 04/15/23 tobramycin 0.3 % eye drops 1 drp ophthalmic (eye) Q4H 7 days 05/21/23 #5 mL cefuroxime axetil 250 mg tablet 250 mg PO BID #13 tabs 07/25/23 Allergies Allergy/AdvReac Type Severity Reaction Status Date / Time gluten [GLUTEN] Allergy Intermediate HIVES Verified 04/15/23 17:00 ciprofloxacin [From CIPRO] Allergy Unknown UNKNOWN Verified 04/15/23 17:00 PEPPERS Allergy Severe HIVES Uncoded 04/15/23 17:00 Review of Systems Review of Systems: Yes all other systems are reviewed and are negative PMFSH Past Medical History Attestation statement: The following information was validated with the patient. Source: old records reviewed Medical History Goiter Allergic rhinitis Impaired glucose tolerance Essential hypertension Surgical History History of adenoidectomy Family History Family History Mother Hypertension CVD (cardiovascular disease) Breast cancer Pacemaker Father Hypertension Diabetes Parkinson's disease Brother In good health Brother In good health Son In good health Son In good health Daughter In good health Family/Other Chronic mental illness Social History Social History Housing: House Alcohol intake: never Patient Tobacco Use Status: Never used Tobacco e-Cigarette/Vaping Use: Never Used Second Hand Smoke Exposure: No Advance Directives: No Advance Directives Information Provided: No service: No Current occupational status: unemployed Cognitive needs: No Hearing needs: No Vision needs: No Physical Exam Vital Signs: Vital Signs: Last Vital Signs Temp 97.8 F 07/25/23 13:24 Pulse 70 07/25/23 13:24 Resp 16 07/25/23 13:24 BP 194/92 H 07/25/23 13:24 Pulse Ox 100 07/25/23 13:24 O2 Del Method Room Air 07/25/23 13:24 BMI result Body Mass Index 28.7 Appearance: Alert.?Oriented to person, place and time. No acute distress.?Normal affect. Eyes: Pupils equal, round and reactive to light.? ENT: Pharynx normal.?? Neck: Normal inspection.? Neck supple.?? CVS: Heart sounds normal. Normal heart rate and rhythm.? Pulses normal.?? Respiratory: No respiratory distress.? Lung sounds clear to auscultation bilaterally?? Abdomen: Soft and non-tender. Normoactive bowel sounds. mild bilateral CVA tenderness Skin: Skin warm and dry.? Normal skin color.? Extremities: No lower extremity edema. Neuro: Moves all extremities spontaneously. Sensation intact bilaterally. No focal neuro deficits. Ambulates with normal steady gait. Medical Decision Making Medical Decision Making MDM Narrative: patient is a 48-year-old female with past medical history of iron deficiency anemia, vitamin-D deficiency, hypertension, impaired glucose tolerance presenting to the emergency department for evaluation of dysuria as per HPI. At the time my examination she is overall well-appearing, nontoxic, afebrile, without tachycardia. Declines urogenital examination, discussed with patient possibility of lesions or rashes such as a chest pain which can also result in burning upon urination, she is performed personal examination and declines noticing any concerning findings. Urinalysis was obtained which reveals Microscopic hematuria, 1+ leukocyte esterase, ,WBC with squamous epithelial cells but no urine bacteria seen, concern for urogenital contamination, verses UTI versus calculi. Reviewed these with patient, given mild CVA tenderness, therefore obtain CT without contrast for further evaluation. CT reveals no evidence of calculi or hydronephrosis, question of mild diffuse thickening of the bladder wall, given reported dysuria, suspect urinary tract infection and plan to treat accordingly with 1st dose in the emergency department and remainder of course sent to her pharmacy. CT also noting left adnexal fluid containing structure, upon examination she has no pain or tenderness at the lower abdomen or suprapubic region, she declined genitourinary examination, she has been afebrile, denies vaginal discharge, denies pelvic pain. She does endorse irregular menses recently, less likely tubo-ovarian abscess, PID. She has an appointment scheduled with mold puller in 2 days on 07/27/2023 she will make them aware that she was seen here in that a CT scan was obtained. At this time feel that she is stable for discharge home, discussed worrisome signs and symptoms that would warrant re-evaluation. All questions answered. Differential Diagnosis Differential Diagnoses: The differential diagnosis associated with the presentation includes ( as noted above) Lab Data MDM Lab Attestation statement: I reviewed the patient's lab results. ( as noted above) Labs: Lab Results 07/25/23 Range/Units 10:08 Urine Color Yellow Urine Appearance Cloudy Urine pH 6.0 (5.0-9.0) Ur Specific [place] 1.020 (1.005-1.025) Urine Protein 300 (3+) H (Neg-Trace) mg/dL Urine Glucose (UA) Negative (Negative) mg/dL Urine Ketones Negative (Negative) mg/dL Urine Blood Large (3+) H (Negative) Urine Nitrite Negative (Negative) Ur Leukocyte Esterase Small (1+) H (Negative) Urine RBC >20 H (0-2) /HPF Urine WBC >50 H (0-5) /HPF Ur Squamous Epith Cells 6-10 (0-2) /HPF Urine Bacteria None Seen (None Seen) Hyaline Casts 0-2 (0-2) /LPF Urine Test NEGATIVE (NEGATIVE) Independent Interpretation I performed an independent interpretation of an: CT Scan Radiology Impression Discussion of test interpretation with radiology: I have reviewed the radiologist's reading. Radiologist Impression: CT/CT abdomen pelvis wo IV con IMPRESSION: No evidence of urinary tract stone or hydronephrosis. Question mild diffuse thickening of the wall the urinary bladder. Differential diagnosis includes, but is not limited to, cystitis. Recommend clinical correlation. Approximately 8.6 cm length by 5 cm in diameter, oblong left adnexal fluid-containing structure which was not clearly evident as such in February 2016, suboptimally evaluated without the benefit of intravenous contrast. Suspect posterior septation or fold. Recommend MR with IV contrast or surgical evaluation. Approximately 5 cm subserosal/intramural leiomyoma involving the body of uterus and fundus toward the left, increased in size compared with 2016, at which time it measured approximately 2.5 cm. Additional findings, as above. External Record Review External record reviewed: Outpatient record Prescription Management I considered prescription management with: Antibiotic Discharge Plan Discharge Clinical Impression: Urinary tract infection, Left pelvic adnexal fluid collection Patient Disposition: Home, Self-Care Instructions: Urinary Tract Infection in Women (ED) Prescriptions: New cefuroxime axetil 250 mg tablet 250 mg PO BID Qty: 13 0RF No Action tobramycin 0.3 % drops 1 drp ophthalmic (eye) Q4H 7 Days Qty: 5 0RF lisinopril 40 mg tablet 40 mg PO DAILY 90 Days Qty: 90 1RF ascorbic acid (vitamin C) 250 mg tablet 250 mg PO DAILY Qty: 60 0RF cholecalciferol (vitamin D3) 50 mcg (2,000 unit) tablet 50 mcg PO DAILY Qty: 90 0RF ferrous sulfate 325 mg (65 mg iron) tablet 325 mg PO BID Qty: 60 6RF loratadine 10 mg tablet 10 mg PO DAILY 30 Days Qty: 30 6RF Referrals: Madhavi Isaacs MD [Primary Care Provider] - Aime Tomlinson MD [Physician] -
[2023-07-25 10:27] LABS: Appearance Urine Cloudy; Color Urine Yellow; Glucose Urine UA Negative (Negative); Leukocyte Esterase Urine Small (1+) (Negative); Nitrite Urine Negative (Negative); UMIC TRIGGER UACC YES; Urine Blood Large (3+) (Negative); Urine Ketones Negative (Negative); Urine Protein 300 (3+) mg/dL (Neg-Trace)
[2023-07-25 10:29] LABS: UPreg QC Valid YES; Urine Pregnancy NEGATIVE (NEGATIVE)
[2023-07-25 10:35] LABS: Bacteria Urine None Seen (None Seen); Hyaline Casts Urine 0-2 /LPF (0-2); RBC Urine >20 /HPF (0-2); UACC Culture Trigger YES; WBC Urine >50 /HPF (0-5)
[2023-07-25 13:24] VITALS: BP 194/92; PULSE 70; RESP 16; TEMP 36.6; O2SAT 100
[2023-07-25] MEDS: cefuroxime axetiL 250 MG TABLET PO (13:46)
== END 2023-07-25 13:56 | disposition home or self-care (01) ==
PROVIDERS: Emergency Provider Emergency Medicine Emergency Medical Services; PCP Internal Medicine
DX: N39.0 Urinary tract infection, site not specified (principal); R19.09 Other intra-abdominal and pelvic swelling, mass and lump; D25.9 Leiomyoma of uterus, unspecified; I10 Essential (primary) hypertension
CPT/HCPCS: 74176; 81001; 81025; 87086; 87088; 87186; 99283; 99284

== ENCOUNTER 2023-07-27 08:56 | Outpatient (AMB) | payer OTHER, SELFPAY ==
[2023-07-27 09:05] VITALS: BP 144/94; BMI 28.6
--- NOTE | 2023-07-27 09:05 | A.OFFVIS_ITS ---
Intake Vital Signs 07/27/23 09:05 Height 5 ft 11 in Weight 205 lb 0.478 oz BMI 28.6 BP 144/94 H Intake Visit Reasons: New patient Annual/DO NOT RS Business Reporting Developer Required: Yes Business Reporting Developer Language: Medical Doctor Md/Medical Director Name: [place] PACHECO Information Interpreted: non-clinical & clinical Negative Checker: Negative Checker Present ([place] PACHECO) Accompanied by: Self / Same As Patient Allergies gluten [GLUTEN] Allergy (Intermediate, Verified 07/27/23 09:09) HIVES ciprofloxacin [From CIPRO] Allergy (Unknown, Verified 07/27/23 09:09) UNKNOWN PEPPERS Allergy (Severe, Uncoded 07/27/23 09:09) HIVES Is last menstrual period known: Yes Last menstrual period: 06/29/23 HPI HPI Comments History of Present Illness Details Presenting for annual exam. No complaints. Last Pap in 2009 was negative Last Mammogram was BI-RADS 3 in 11/06 , Pedrito alanis lifetime breast cancer risk was 23%, the recommendation was to repeat in 6 months, the patient had breast ultrasound in 07/06 with no diagnostic mammogram No previous screening colonoscopy. The patient went to the emergency room with some pelvic pain the following workup was done a urine dip was positive for leukocyte esterase, urine culture grew E coli sensitive to ceftriaxone, nitrofurantoin, and levofloxacin, the patient was prescribed cefuroxime 250 mg p.o. b.i.d. for [address] scan of abdomen pelvis showed a 5 cm myoma that has increased in size from 2.5 cm in 2016 and a left adnexal structure measuring 8.6 x 5 cm with septation [facility] Medical History Goiter Allergic rhinitis Impaired glucose tolerance Essential hypertension Surgical History History of adenoidectomy Family History Mother Hypertension CVD (cardiovascular disease) Breast cancer Pacemaker Father Hypertension Diabetes Parkinson's disease Brother In good health Brother In good health Son In good health Son In good health Daughter In good health Family/Other Chronic mental illness Social History Household Members: Spouse Housing: House Alcohol intake: never Patient Tobacco Use Status: Never used Tobacco e-Cigarette/Vaping Use: Never Used Second Hand Smoke Exposure: No service: No Current occupational status: unemployed Cognitive needs: No Hearing needs: No Vision needs: No Female Reproductive History Menstrual Date of last menstrual period: 06/29/23 Review of Systems Const All systems reviewed & are unremarkable except as noted in HPI and below Card Reports as per HPI Resp Reports as per HPI GI Reports as per HPI and Reports no additional complaints Reports as per HPI Physical Exam Vital Signs: Last Vital Signs BP 144/94 H 07/27/23 09:05 BMI result Body Mass Index 28.6 Const General: cooperative, healthy appearing and comfortable Chest Chest palpation & inspection: normal inspection of the chest and normal palpation of entire chest wall Breast/axilla inspection: normal inspection of the breasts and normal inspection of the axillae Breast/axilla palpation: normal palpation of the breasts, normal palpation of the axillae and no axillary lymphadenopathy Resp Effort & Inspection: normal respiratory effort Auscultation: clear to auscultation bilaterally Percussion: percussion normal Cardio Palpation: normal PMI Rate: regular rate Rhythm: regular rhythm Heart sounds: no murmurs and no rubs Peripheral pulses: Peripheral pulses 2+ throughout GI Inspection: Yes normal to inspection Palpation (GI): Soft to palpation, nontender, no guarding, not rigid and No hepatosplenomegaly present Percussion: Yes normal to percussion Auscultation: normal bowel sounds Rectal Exam - Female: deferred General: Yes bladder normal to palpation External Female Exam: No lesion Speculum Exam - Vagina: normal appearance of the vagina, normal palpation, normal vaginal discharge and not erythematous Speculum Exam - Cervix: normal appearance of the cervix and normal palpation Bimanual exam- vagina & uterus: normal bimanual exam, normal palpation, bladder normal to palpation, consistency normal, normal palpation and enlarged Bimanual Exam- Adnexa, other: no masses, no tenderness and Other (Left adnexal mass) Assessment & Plan Assessment & Plan (1) Well woman exam: Code(s): Z01.419 - Encounter for gynecological examination (general) (routine) without abnormal findings Plan: Co testing done. Counseled the patient about the recommended dietary allowance of 1200 mg of Calcium & 600 IU of vitamin D. Diagnostic Mammogram ordered. The patient was referred to GI for screening colonoscopy . The patient was instructed to perform monthly self-breast exams and schedule annual exam in a year. All questions answered and the patient verbalized understanding. (2) Adnexal mass: Code(s): N94.89 - Other specified conditions associated with female genital organs and menstrual cycle Plan: Discussed with the patient the finding on CT scan showing left adnexal structure measuring 8.6 and 6 x 5 cm with septation, the differential diagnosis of this finding was discussed with the patient including benign, premalignant or malignant finding of the left adnexa, will order pelvic ultrasound CA 125, CEA and CA 19 9, check the results accordingly (3) Uterine myoma: Code(s): D25.9 - Leiomyoma of uterus, unspecified Plan: Discussed with the patient the results of the ultrasound and the size of the myomas has increased in size from 2. Five cm in 2016 up to 5 cm. Discussed with the patient risk of myosarcoma and symptoms that are caused by myomas including but not limited to pelvic pain, pressure symptoms, abnormal uterine b leeding. In addition discussed with the patient options of treatment for myomas including: Serial ultrasounds periodically to follow-up on the size of the myoma while targeting the treatment against fibroids related symptoms ( control pills, Mirena IUD, progesterone treatment, GnRH agonist/antagonist, uterine artery embolization or endometrial ablation) versus surgical treatment including hysterectomy and or myomectomy. All pros and cons, risks and benefits of all options were discussed with the patient. The patient understands that delay in surgical treatment in case of myosarcoma can affect her prognosis, after further discussion, the patient decided to think about it and get back to us next visit (4) Urinary tract infection: Code(s): N39.0 - Urinary tract infection, site not specified Plan: Since urine culture is sensitive to nitrofurantoin, will switch the patient an tibiotics to nitrofurantoin 100 mg p.o. b.i.d. for 5 days instead of cefuroxime (5) Abnormal uterine bleeding (AUB): Code(s): N93.9 - Abnormal uterine and vaginal bleeding, unspecified Plan: Co testing done, GC and chlamydia taken CBC, TSH, prolactin, HCG, FSH/LH and pelvic ultrasound ordered. Discussed with the patient the different causes of abnormal bleeding including thyroid disorders, uterine and ovarian pathology, endometrial hyperplasia, carcinoma and other potential causes. Discussed with the patient the work up including CBC (to r/o anemia), TSH, pelvic Ultrasound, endometrial biopsy to r/o endometrial pathology. All questions answered and the patient verbalized understanding. Instructed the patient to schedule an appointment for an endometrial biopsy in 2 weeks. (6) At high risk for breast cancer: Code(s): Z91.89 - Other specified personal risk factors, not elsewhere classified Plan: Discussed with the patient her increased risk for Breast ca. The lifetime risk of breast cancer based on the Tyrer-Cuzick Model is 23 % Recommended Intensification of breast Cancer screening with annual MRI breast in addition to annual mammogram and MRI alternating every 6 months. Mammogram done recently , Breast MRI ordered Will refer to Dr Crespo for possible Genetic Ca counseling and possible testing, in addition to counseling regarding Chemoprevention strategies All questions answered, the patient verbalized understanding and agreed with the plan Orders: Orders TSH reflex Free T4 Today N93.9 - Abnormal uterine and vaginal bleeding, unspecified HCG Quantitative Today N93.9 - Abnormal uterine and vaginal bleeding, unsp ecified Follicle Stimulating Hormone Today N93.9 - Abnormal uterine and vaginal bleeding, unspecified Lutenizing Hormone Today N93.9 - Abnormal uterine and vaginal bleeding, unspecified CA-125 Today N83.299 - Other ovarian cyst, unspecified side MM tomosynthesis diagnostic BI Today Z12.39 - Encounter for other screening for malignant neoplasm of breast Complete Blood Count no Diff Today N93.9 - Abnormal uterine and vaginal bleeding, unspecified Prolactin Today N93.9 - Abnormal uterine and vaginal bleeding, unspecified US pelvic and transvaginal Today N93.9 - Abnormal uterine and vaginal bleeding, unspecified Carbohydrate Antigen 19-9 Today N83.299 - Other ovarian cyst, unspecified side Carcinoembryonic Antigen Today N83.299 - Other ovarian cyst, unspecified side MR breast BI wo/w con Today Z80.3 - Family history of malignant neoplasm of breast Referrals General Surgery Referral Z91.89 - Other specified personal risk factors, not elsewhere classified Gastroenterology Referral Z12.11 - Encounter for screening for malignant neoplasm of colon Medications: New nitrofurantoin monohyd/m-cryst 100 mg (Macrobid) 100 mg PO BID 5 days 10 caps 0RF Discontinued cefuroxime axetil Discontinued Reason: Doctor's Order 250 mg PO BID 13 tabs 0RF Coding Level of Care Code New Pt Level 3 (55539) New Pt Prev Care 40-64y(78842) Diagnoses Well woman exam Z01.419 Adnexal mass N94.89 Uterine myoma D25.9 Urinary tract infection N39.0 Abnormal uterine bleeding (AUB) N93.9 At high risk for breast cancer Z91.89
== END 2023-07-27 09:42 | disposition home or self-care (01) ==
PROVIDERS: PCP Internal Medicine; Visit Provider Obstetrics & Gynecology
DX: Z01.419 Encounter for gynecological examination (general) (routine) without abnormal findings (principal); N94.89 Other specified conditions associated with female genital organs and menstrual cycle; D25.9 Leiomyoma of uterus, unspecified; N39.0 Urinary tract infection, site not specified; N93.9 Abnormal uterine and vaginal bleeding, unspecified; Z91.89 Other specified personal risk factors, not elsewhere classified
CPT/HCPCS: 99203; 99386

== ENCOUNTER 2023-07-27 08:56 | Outpatient (REF) | payer OTHER, SELFPAY ==
--- NOTE | ~2023-07-27 | US_ITS ---
EXAMINATION: US PELVIS CLINICAL INFORMATION: Abnormal uterine and vaginal bleeding, unspecified LMP 06/29/2023 COMPARISON: Pelvic ultrasound 10/09/2009, CT scan abdomen and pelvis 07/25/2023 and 02/23/2016 TECHNIQUE: Ultrasound of the pelvis is performed using both transabdominal and transvaginal transducers along with Doppler. Transvaginal imaging is performed due to inadequate visualization transabdominally. FINDINGS: Uterus: The uterus is anteverted and measures 12.0 x 7.6 x 5.5 cm. 4.5 x 4.1 x 4.0 cm partially exophytic left fundal fibroid is seen. The endometrial thickness is 1.1 cm. Adnexa: Both ovaries are visualized. There is normal color flow to the adnexa. There is no ovarian torsion. There is no pelvic ascites or fluid collection. Right ovary is normal in appearance and measures 2.6 x 1.5 x 1.5 cm. Volume 2.1 mL. Left ovary is normal in appearance and measures 2.7 x 2.0 x 2.2 cm. This was seen only transabdominally. In the left adnexa, there is an 8.3 x 5.5 x 4.6 cm cyst with a septum containing a 3.0 x 3.0 x 2.6 cm daughter cyst. This is probably a benign cyst. Follow-up ultrasound in 3-6 months is recommended. US/US pelvic and transvaginal IMPRESSION: 1. 4.5 cm partially exophytic left fundal fibroid. 2. Normal ovaries. 3. 8.3 cm cyst with a septum containing a 3.0 cm daughter cyst in the left adnexa. This is probably a benign cyst. Follow-up ultrasound in 3-6 months is recommended.
[2023-07-27 10:20] LABS: Hematocrit 34.3 % (37.0-47.0); Hemoglobin 9.8 g/dl (12.0-16.0); Mean Corpuscular HGB Conc 28.6 g/dl (31.0-35.0); Mean Corpuscular Hemoglobin 21.2 pg (27.0-33.0); Mean Corpuscular Volume 74.2 fL (80.0-98.0); Platelet Count 360 X10*3/uL (160-400); Red Blood Count 4.62 X10*6/uL (4.20-5.50)
[2023-07-27 11:06] LABS: Carcinoembryonic Antigen < 1.73 ng/mL; HCG Quantitative < 2 mIU/mL
[2023-07-28 07:24] LABS: Follicle Stimulating Hormone 3.3 mIU/mL; Lutenizing Hormone 6.1 mIU/mL; Prolactin 13.5 ng/mL
[2023-07-31 08:58] LABS: CA-125 16 U/mL (<35); Carbohydrate Antigen 19-9 <3 U/mL (<34)
== END 2023-07-27 08:57 | disposition home or self-care (01) ==
LOC: HO.LAB 08:56
PROVIDERS: PCP Internal Medicine; Visit Provider Obstetrics & Gynecology
DX: N93.9 Abnormal uterine and vaginal bleeding, unspecified (principal); N83.299 Other ovarian cyst, unspecified side; N94.89 Other specified conditions associated with female genital organs and menstrual cycle; D25.9 Leiomyoma of uterus, unspecified; N39.0 Urinary tract infection, site not specified; Z91.89 Other specified personal risk factors, not elsewhere classified
CPT/HCPCS: 36415; 76830; 76856; 82378; 83001; 83002; 84146; 84443; 84702; 85027; 86301; 86304; 99202; 99386

== ENCOUNTER 2023-07-27 10:16 | Outpatient (REF) | payer OTHER, SELFPAY ==
[2023-07-28 10:59] LABS: CT PCR NOT DETECTED (Not Detect.); NG PCR NOT DETECTED (Not Detect.)
[2023-08-01 08:52] LABS: HPV mRNA E6/E7 rflx Not Detected (Not Detected)
== END 2023-07-27 10:17 | disposition home or self-care (01) ==
LOC: HO.LNP 10:16
PROVIDERS: Visit Provider Obstetrics & Gynecology
DX: Z01.419 Encounter for gynecological examination (general) (routine) without abnormal findings (principal); Z11.51 Encounter for screening for human papillomavirus (HPV); N93.9 Abnormal uterine and vaginal bleeding, unspecified
CPT/HCPCS: 0353U; 87624; 88142

== ENCOUNTER 2023-07-29 09:40 | Outpatient (REF) | payer OTHER, SELFPAY | END 2023-07-29 09:41 | disposition home or self-care (01) | LOC: HO.LNP 09:40 | PROVIDERS: PCP Internal Medicine; Visit Provider Obstetrics & Gynecology | DX: N93.9 Abnormal uterine and vaginal bleeding, unspecified (principal); N83.299 Other ovarian cyst, unspecified side | CPT/HCPCS: 58100; 88305; 99212 ==

== ENCOUNTER 2023-07-29 09:40 | Outpatient (AMB) | payer OTHER, SELFPAY ==
[2023-07-29 09:48] VITALS: BMI 28.6
--- NOTE | 2023-07-29 09:48 | A.OFFVIS_ITS ---
Intake Vital Signs 07/29/23 09:48 Height 5 ft 11 in Weight 205 lb 0.478 oz BMI 28.6 Intake Visit Reasons: EMB/30 mins Live Truck Operator Required: Yes Live Truck Operator Language: Road Boss Name: [place] PACHECO Information Interpreted: non-clinical & clinical Blocker Heated Metal Forms: Blocker Heated Metal Forms Present ([place] PACHECO) Accompanied by: Self / Same As Patient Allergies gluten [GLUTEN] Allergy (Intermediate, Verified 07/29/23 09:53) HIVES ciprofloxacin [From CIPRO] Allergy (Unknown, Verified 07/29/23 09:53) UNKNOWN PEPPERS Allergy (Severe, Uncoded 07/29/23 09:53) HIVES HPI HPI Comments History of Present Illness Details Presenting for EMB and ultrasound follow-up. Ultrasound showed the following: Uterus: The uterus is anteverted and measures 12.0 x 7.6 x 5.5 cm. 4.5 x 4.1 x 4.0 cm partially exophytic left fundal f ibroid is seen. The endometrial thickness is 1.1 cm. Adnexa: Both ovaries are visualized. There is normal color flow to the adnexa. There is no ovarian torsion. There is no pelvic ascites or fluid collection. Right ovary is normal in appearance and measures 2.6 x 1.5 x 1.5 cm. Volume 2.1 mL. Left ovary is normal in appearance and measures 2.7 x 2.0 x 2.2 cm. This was seen only transabdominally. In the left adnexa, there is an 8.3 x 5.5 x 4.6 cm cyst with a septum containing a 3.0 x 3.0 x 2.6 cm daughter cyst. This is probably a benign cyst. Follow-up ultrasound in 3-6 months is recommended. [facility] Medical History Goiter Allergic rhinitis Impaired glucose tolerance Essential hypertension Surgical History History of adenoidectomy Family History Mother Hypertension CVD (cardiovascular disease) Breast cancer Pacemaker Father Hypertension Diabetes Parkinson's disease Brother In good health Brother In good health Son In good health Son In good health Daughter In good health Family/Other Chronic mental illness Social History Household Members: Spouse Housing: House Alcohol intake: never Patient Tobacco Use Status: Never used Tobacco e-Cigarette/Vaping Use: Never Used Second Hand Smoke Exposure: No service: No Current occupational status: unemployed Cognitive needs: No Hearing needs: No Vision needs: No Review of Systems Const All systems reviewed & are unremarkable except as noted in HPI and below Reports as per HPI and Reports no additional complaints GI Reports no additional complaints Reports no additional complaints Physical Exam Vital Signs: BMI result Body Mass Index 28.6 Office Procedures Endometrial Biopsy Details: The patient was counseled regarding the indication and benefits of endometrial sampling to rule out endometrial pathology including not limited to endometrial hyperplasia or endometrial cancer and others; The alternatives (Either do nothing vs. hysteroscopy D&C) & the risks were discussed with the patient including but not limited: pain, uterine perforation, bleeding, infection, possible injury to bladder, bowel, ureter, possible need for blood transfusion with all its possible risks. The patient verbalized understanding all questions answered and signed consent. Urine test done in the office was negative The patient was placed into the dorsal lithotomy position; a speculum was inserted in the vagina. Using aseptic technique for the procedure, the cervix was cleansed with Betadine. The anterior lip of the cervix was grasped with a single tooth tenaculum. The uterus was sounded to 7 cm with a 4 mm Pipelle was used. Tissues samples were obtained and placed in formalin, in a patient labeled container and sent to the pathology department. At the end of the procedure, there was minimal bleeding noted The patient tolerated the procedure well and was discharged in good condition with the following instructions: Nothing in the vagina until the bleeding stops. No sex until the bleeding stops, to call if any of the following occurs: fever (>100.4), flu-like symptoms, abdominal pain, heavy bleeding, four smelling vaginal discharge. The patient was instructed to schedule a Follow up appointment in 2 weeks to discuss pathology results of the biopsy and treatment options. This note was generated with a voice recognition program. Some errors may have been overlooked during the review of this note. Sometimes these errors may affect the content or meaning of a given sentence. [id number] Biopsy Assessment & Plan Assessment & Plan (1) Abnormal uterine bleeding (AUB): Code(s): N93.9 - Abnormal uterine and vaginal bleeding, unspecified Plan: EMB done, see procedure note (2) Complex ovarian cyst: Code(s): N83.299 - Other ovarian cyst, unspecified side Plan: Discussed with the patient the complex ovarian cyst by ultrasound. Discussed with the patient the Ultrasound findings, the main limitation of transvaginal ultrasonography alone as a diagnostic tool to distinguish benign from malignant masses relates to its lack of specificity and low positive predictive value for cancer. The differential diagnosis discussed with the patient includes the following but not limited to: benign and malignant gynecological and non-gynecological causes. Laboratory evaluation include UPT and GC/CT , serum tumor marker CA 125 . Discussed with the patient that CA 125 is a protein associated with epithelial ovarian malignancies, but also frequently expressed at lower levels by nonmalignant tissue. Elevation of CA 125 levels may occur in nonmalignant gynecologic conditions, and in non-gynecologic cancers, It is most useful in postmenopausal women and in identifying non mucinous epithelial cancer. The CA 125 level is elevated in 80% of patients with epithelial ovarian cancer but in only 50% of patients with stage I disease. The overall sensitivity of CA 125 testing in distinguishing benign from malignant adnexal masses reportedly ranges from 61% to 90%; discussed with the patient the specificity, positive predictive value and negative predictive value. Will order CA 125, Ca and CA 19-9 Discussed with the patient options of treatment , in case any of the tumor markers are not elevated, including laparoscopy ovarian cystectomy/oophorectomy vs. expectant management with repeat US in repeating pelvic US in 12 weeks from previous US. If the ovarian complex cyst is persistent larger and / or more complex looking, or higher CA 125 will refer to gynecologic Oncology. All pros, cons, risks and benefits of each approach were discussed with the patient including but not limited to a delay in the diagnosis and treatment of ovarian cancer affecting the prognosis; The patient decided to go ahead with expectant management. Signs and symptoms of ovarian rupture and/or torsion were discussed with the patient. Instructions given the patient to call or go to emergency room in case of sudden abdominal/pelvic pain, nausea or vomiting and to refrain from strenuous exercise and sexual activity till further notice and to schedule a 3 months follow-up ultrasound appointment. All questions were answered & the patient verbalized understanding and agreed with the plan. Orders: Orders Carcinoembryonic Antigen Today N83.299 - Other ovarian cyst, unspecified side Surgical Today N93.9 - Abnormal uterine and vaginal bleeding, unspecified AMB Endometrial Biopsy Today N93.9 - Abnormal uterine and vaginal bleeding, unspecified US pelvic and transvaginal 3 Months N83.299 - Other ovarian cyst, unspecified side Coding Level of Care Code Est Pt Level 3 (45372) Diagnoses Abnormal uterine bleeding (AUB) N93.9 Complex ovarian cyst N83.299 CPT Codes Endometrial Biopsy - CPT: 94748-[id number] Biopsy ([id number])
== END 2023-07-29 10:07 | disposition home or self-care (01) ==
LOC: HO.HWS 09:40
PROVIDERS: PCP Internal Medicine; Visit Provider Obstetrics & Gynecology
DX: N83.292 Other ovarian cyst, left side (principal); N93.9 Abnormal uterine and vaginal bleeding, unspecified
CPT/HCPCS: 58100; 99213

== ENCOUNTER 2023-08-04 18:18 | Emergency (ER) | payer OTHER, SELFPAY ==
--- NOTE | ~2023-08-04 | XR_ITS ---
EXAMINATION: XR CHEST CLINICAL INFORMATION: Cough. COMPARISON: 08/18/2021. TECHNIQUE: 2 views of the chest were obtained. FINDINGS: No significant abnormality is noted involving the heart, lungs, mediastinum, bony thorax or soft tissues. XR/XR chest 2V IMPRESSION: Unremarkable examination.
--- NOTE | 2023-08-04 18:49 | ED_ITS ---
HPI - General Adult General Chief complaint: Upper Respiratory Symptoms Stated complaint: Sore throat body aches Time Seen by Provider: 08/04/23 19:48 Source: patient Mode of arrival: ambulatory Limitations: no limitations History of Present Illness HPI narrative: Patient with URI symptoms cough congestion for last 2 days temperature of 101 degrees cough is mucopurulent with increased pain on coughing feels short of breath on arrival patient temperature was 101.3 degrees saturating 98% at room air Related Data Previous Rx's Medication Instructions Recorded tobramycin 0.3 % eye drops 1 drp ophthalmic (eye) Q4H 7 days 05/21/23 #5 mL nitrofurantoin 100 mg PO BID 5 days #10 caps 07/27/23 monohydrate/macrocrystals 100 mg capsule (Macrobid) ascorbic acid (vitamin C) 250 mg 250 mg PO DAILY #60 tabs 07/29/23 tablet cholecalciferol (vitamin D3) 50 50 mcg PO DAILY #90 tabs 07/29/23 mcg (2,000 unit) tablet ferrous sulfate 325 mg (65 mg 325 mg PO BID #60 tabs 07/29/23 iron) tablet lisinopril 40 mg tablet 40 mg PO DAILY 90 days #90 tabs 07/29/23 loratadine 10 mg tablet 10 mg PO DAILY 30 days #30 tabs 07/29/23 cefuroxime axetil 500 mg tablet 500 mg PO BID 10 days #20 tabs 08/04/23 codeine 10 mg-guaifenesin 100 mg/5 10 ml PO Q6H PRN cough #237 mL 08/04/23 mL oral liquid Allergies Allergy/AdvReac Type Severity Reaction Status Date / Time gluten [GLUTEN] Allergy Intermediate HIVES Verified 07/29/23 09:53 ciprofloxacin [From CIPRO] Allergy Unknown UNKNOWN Verified 07/29/23 09:53 PEPPERS Allergy Severe HIVES Uncoded 07/29/23 09:53 Review of Systems 2 Review of Systems: Yes all other systems are reviewed and are negative PMFSH Past Medical History Medical History Goiter Allergic rhinitis Impaired glucose tolerance Essential hypertension Surgical History History of adenoidectomy Family History Family History Mother Hypertension CVD (cardiovascular disease) Breast cancer Pacemaker Father Hypertension Diabetes Parkinson's disease Brother In good health Brother In good health Son In good health Son In good health Daughter In good health Family/Other Chronic mental illness Social History Household Members: Spouse Housing: House Alcohol intake: never Patient Tobacco Use Status: Never used Tobacco Smoked in Last 30 Days: No e-Cigarette/Vaping Use: Never Used Second Hand Smoke Exposure: No Use of substances other than those prescribed or required for medical reasons: No Advance Directives: No Advance Directives Information Provided: No service: No Current occupational status: unemployed Cognitive needs: No Hearing needs: No Vision needs: No Physical Exam ED Vital Signs: Vital Signs - 24 hr 08/04/23 18:50 08/04/23 19:28 08/04/23 19:29 Temperature 101.3 F H 101.1 F H Pulse Rate 108 H 98 Respiratory Rate 24 H 24 H Blood Pressure 185/96 H 166/83 H Pulse Oximetry 98 98 97 Oxygen Delivery Method Room Air Room Air Room Air 08/04/23 19:30 Temperature Pulse Rate 98 Respiratory Rate 22 H Blood Pressure Pulse Oximetry 97 Oxygen Delivery Method Room Air BMI result Body Mass Index 32.4 Appearance: Alert. Oriented X3. No acute distress. ENT: Pharynx normal. Oral Mucosa moist Neck: Normal inspection. Neck supple. CVS: Normal heart rate and rhythm. Pulses normal. Respiratory: No respiratory distress. Equal air entry bilateral, no wheezing/rales/rhonchi frequent dry cough Abdomen: Soft and nontender. Bowel sounds are present, Skin: Skin warm and dry. Normal skin color. Normal skin turgor. Extremities: No lower extremity edema. No calf tenderness Neuro: Oriented X 3. Course Course Course Narrative: This is an RME: Additional HPI, ROS, PE not included below will be deferred to primary provider. This is a 21-gnfp-gyt-female, with a hx of HTN, left breast mass, left uterine fibroma, presenting to the emergency department with a complaint of cough x 2 days. Pt states that she has had productive cough with yellow sputum. +Fever 101, took tylenol 3 hours ago. +SOB, ST, Nasal congestion. +sick contacts. Patient febrile at 101.3, tachycardic at 1:08 a.m., respirations 24, blood pressure 185/96. Patient already medicated with Tylenol prior to arrival. Given fever, will medicate with Motrin by mouth. Plan: labs, viral swabs, cxr Medications Administered Discontinued Medications Generic Name Dose Route Start Last Admin Trade Name Renny PRN Reason Stop Dose Admin Acetaminophen 650 mg 08/04/23 20:40 08/04/23 20:57 Acetaminophen 325 Mg Tablet PO 08/04/23 20:41 650 mg ONCE ONE Administration Ceftriaxone Sodium 1 gm/ 50 mls @ 100 mls/hr 08/04/23 20:40 08/04/23 21:25 Sodium Chloride IV 08/04/23 21:09 Infused ONCE ONE Infusion Ibuprofen 800 mg 08/04/23 18:54 08/04/23 18:58 Ibuprofen 800 Mg Tablet PO 08/04/23 18:55 800 mg ONCE ONE Administration Medical Decision Making Medical Decision Making [facility] Narrative: Patient does have significant bronchitis with fever with leukocytosis of 28,000 chest x-ray negative for acute infiltrate patient because of high white count and fever was given IV Rocephin and discharged on Ceftin Differential Diagnosis Differential Diagnoses: The differential diagnosis associated with the presentation includes Bronchitis/viral pneumonia/pneumonia Admission/Observation Consideration of admission/observation: Escalation of care including admission/observation considered Lab Data [facility] Lab Attestation statement: I reviewed the patient's lab results. 08/04/23 19:24 08/04/23 19:24 Labs: Lab Results 08/04/23 Range/Units 19:24 WBC 28.0 H (4.8-10.8) X10*3/uL RBC 4.53 (4.20-5.50) X10*6/uL Hgb 9.8 L (12.0-16.0) g/dl Hct 32.4 L (37.0-47.0) % MCV 71.5 L (80.0-98.0) fL MCH 21.6 L (27.0-33.0) pg MCHC 30.2 L (31.0-35.0) g/dl RDW 20.8 H (11.0-16.0) % Plt Count 316 (160-400) X10*3/uL MPV 10.4 (9.4-12.3) fL Immature Gran % (Auto) 0.7 H (0.0-0.4) % Neut % (Auto) 84.6 H (45-73) % Lymph % (Auto) 8.0 L (20-40) % [place]bon % (Auto) 6.3 (2-11) % Eos % (Auto) 0.1 (0-4) % Baso % (Auto) 0.3 (0-2) % Lymph # (Auto) 2.2 (1.2-4.9) X10*3/uL [place]bon # (Auto) 1.8 H (0.1-1.2) X10*3/uL Eos # (Auto) 0.0 (0.0-0.4) X10*3/uL Baso # (Auto) 0.1 (0.0-0.2) X10*3/uL Abs Immat Gran (auto) 0.20 H (0.00-0.03) X10*3/uL Absolute Neuts (auto) 23.7 H (2.0-8.3) x10*3/uL Absolute Nucleated RBC 0.000 (0.0-0.012) X10*3/uL Nucleated RBC % (auto) 0.0 (0.0-0.2) /100WBC Smear Tech's Comments VERIFIED Sodium 135 (135-145) mmol/L Potassium 3.6 (3.3-5.1) mmol/L Chloride 104 (96-108) mmol/L Carbon Dioxide 25 (22-29) mmol/L Anion Gap 10 L (12-20) BUN 12 (9-16) mg/dL Creatinine 0.70 (0.5-1.4) mg/dL Estim Creat Clear Calc 110.4 Estimated GFR > 60 Random Glucose 131 H (60-115) mg/dL Lactic Acid 0.8 (0.5-2.0) mmol/L Calcium 9.7 (8.4-10.2) mg/dL Total Bilirubin 0.6 (0.0-1.0) mg/dL Direct Bilirubin 0.3 (0.0-0.5) mg/dL AST 13 (5-31) U/L ALT 12 (0-31) U/L Alkaline Phosphatase 107 (39-117) U/L Total Protein 8.4 H (6.5-8.0) g/dL Albumin 4.3 (3.5-5.0) g/dL Influenza Type A (PCR) NEGATIVE (Negative) Influenza Type B (PCR) NEGATIVE (Negative) RSV RNA Qual (PCR) NEGATIVE (Negative) SARS-CoV-2 RNA (RT-PCR) NEGATIVE (Negative) S. pyogenes GrpA KAM Negative (Negative) Independent Interpretation I performed an independent interpretation of an: Plain X-Ray Interpretation: No infiltrate Radiology Impression Discussion of test interpretation with radiology: I have reviewed the radiologist's reading. Discharge Plan Discharge Clinical Impression: Acute bronchitis Patient Disposition: Home, Self-Care Instructions: Acute Bronchitis (ED) Additional Instructions: Drink plenty of fluids Take antibiotic as prescribed Cough syrup as prescribed Report to the ER if not better Prescriptions: New codeine-guaifenesin 10-100 mg/5 mL liquid 10 ml PO Q6H PRN (Reason: cough) Qty: 237 0RF cefuroxime axetil 500 mg tablet 500 mg PO BID 10 Days Qty: 20 0RF No Action tobramycin 0.3 % drops 1 drp ophthalmic (eye) Q4H 7 Days Qty: 5 0RF ascorbic acid (vitamin C) 250 mg tablet 250 mg PO DAILY Qty: 60 0RF cholecalciferol (vitamin D3) 50 mcg (2,000 unit) tablet 50 mcg PO DAILY Qty: 90 0RF ferrous sulfate 325 mg (65 mg iron) tablet 325 mg PO BID Qty: 60 6RF lisinopril 40 mg tablet 40 mg PO DAILY 90 Days Qty: 90 1RF loratadine 10 mg tablet 10 mg PO DAILY 30 Days Qty: 30 6RF nitrofurantoin monohyd/m-cryst [Macrobid] 100 mg capsule 100 mg PO BID 5 Days Qty: 10 0RF Interventions: ED Discharge Assessment Last Done: 08/04/23 22:00 Discharge Date/Time: 08/04/23 22:01
[2023-08-04 18:50] VITALS: BP 185/96; PULSE 108; RESP 24; TEMP 38.5; O2SAT 98; BMI 32.4
[2023-08-04] MEDS: Ibuprofen 800 MG TABLET PO (18:58)
[2023-08-04 19:28] VITALS: PULSE 101; O2SAT 98
[2023-08-04 19:29] VITALS: BP 166/83; PULSE 98; RESP 24; TEMP 38.4; O2SAT 97
[2023-08-04 19:30] VITALS: PULSE 98; RESP 22; O2SAT 97
[2023-08-04 19:32] LABS: Basophils Absolute Auto 0.1 X10*3/uL (0.0-0.2); Basophils Percent Auto 0.3 % (0-2); Eosinophils Percent Auto 0.1 % (0-4); Hematocrit 32.4 % (37.0-47.0); Hemoglobin 9.8 g/dl (12.0-16.0); Imm Gran Pct Auto 0.7 % (0.0-0.4); Lymphocytes Absolute Auto 2.2 X10*3/uL (1.2-4.9); MANUAL DIFF FLAG SCAN; Mean Corpuscular HGB Conc 30.2 g/dl (31.0-35.0); Mean Corpuscular Hemoglobin 21.6 pg (27.0-33.0); Mean Corpuscular Volume 71.5 fL (80.0-98.0); Mean Platelet Volume 10.4 fL (9.4-12.3); Monocytes Absolute Auto 1.8 X10*3/uL (0.1-1.2); Monocytes Percent Auto 6.3 % (2-11); Neutrophils Absolute Auto 23.7 x10*3/uL (2.0-8.3); Neutrophils Percent Auto 84.6 % (45-73); Platelet Count 316 X10*3/uL (160-400); Red Blood Count 4.53 X10*6/uL (4.20-5.50); Red Cell Distribution Width 20.8 % (11.0-16.0); SCAN SMEAR FLAG 1
--- NOTE | 2023-08-04 19:32 | MHC.EDTECH ---
Patient placed on the cafeteria monitor ,vitals were taken and temp orally is 101.1, JAMEE Madrigal made aware. First set of blood cultures,labs ,Sars,and Strep were obtained and sent to lab.call hall within reach
--- NOTE | 2023-08-04 19:35 | PC.NURSE ---
Pt lung sounds clear bilaterally, respirations are elevated at 22-24, tachycardic on monitor, hypertensive. Fever has come down slightly with the administration of Ibuprofen
[2023-08-04 19:42] LABS: Lactic Acid 0.8 mmol/L (0.5-2.0)
[2023-08-04 19:44] LABS: IDNOW Serial# 08D9AD1C; Strep A Nucleic Acid Negative (Negative)
[2023-08-04 19:48] LABS: Alanine Aminotransferase 12 U/L (0-31); Albumin Level 4.3 g/dL (3.5-5.0); Alkaline Phosphatase 107 U/L (39-117); Anion Gap 10 (12-20); Aspartate Amino Transferase 13 U/L (5-31); Bilirubin Direct 0.3 mg/dL (0.0-0.5); Bilirubin Total 0.6 mg/dL (0.0-1.0); Blood Urea Nitrogen 12 mg/dL (9-16); Calcium 9.7 mg/dL (8.4-10.2); Carbon Dioxide 25 mmol/L (22-29); Chloride 104 mmol/L (96-108); Creatinine Clr Calc Pharmacy 110.4; Estimated Glomerular Filt Rate > 60; Glucose Random 131 mg/dL (60-115); Potassium 3.6 mmol/L (3.3-5.1); Sodium 135 mmol/L (135-145); Total Protein 8.4 g/dL (6.5-8.0)
[2023-08-04 20:03] LABS: SLIDE REVIEW VERIFIED
[2023-08-04 20:08] LABS: Influenza A PCR NEGATIVE (Negative); Influenza B PCR NEGATIVE (Negative); Resp Syncy Virus RNA Qual PCR NEGATIVE (Negative); SARS COV2 PCR INHOUSE NEGATIVE (Negative)
[2023-08-04] MEDS: cefTRIAXone sodium 1 GM in 0.9 % Sodium Chloride 50 ML IV (20:57)
[2023-08-04] MEDS: Acetaminophen 325 MG TABLET 650 MG PO (20:57)
[2023-08-04 21:26] VITALS: TEMP 37.1
== END 2023-08-04 22:01 | disposition home or self-care (01) ==
PROVIDERS: Physician Assistant Medical; Emergency Provider Internal Medicine; PCP Internal Medicine
DX: J40 Bronchitis, not specified as acute or chronic (principal); J02.9 Acute pharyngitis, unspecified; M79.10 Myalgia, unspecified site; R50.9 Fever, unspecified; R05.9 Cough, unspecified; Z79.899 Other long term (current) drug therapy; Z20.822 Contact with and (suspected) exposure to COVID-19; Z20.828 Contact with and (suspected) exposure to other viral communicable diseases
CPT/HCPCS: 0241U; 36415; 71046; 80048; 80076; 83605; 85025; 87040; 87651; 96365; 99284; 99285; J0696

== ENCOUNTER 2023-08-25 15:02 | Emergency (ER) | payer OTHER, SELFPAY ==
--- NOTE | ~2023-08-25 | XR_ITS ---
EXAMINATION: XR LUMBOSACRAL SPINE CLINICAL INFORMATION: Back pain, fall COMPARISON: None available. TECHNIQUE: Three views of the lumbosacral spine. FINDINGS: The vertebral bodies and posterior elements are normal. The disc spaces are preserved and the vertebral alignment is normal. The paraspinal soft tissues are normal. Mild degenerative disc disease is noted at L5-S1. XR/XR lumbar spine 2-3V IMPRESSION: No acute fracture or subluxation of the lumbar spine.
--- NOTE | ~2023-08-25 | CT_ITS ---
EXAMINATION: CT HEAD WITHOUT CONTRAST CLINICAL INFORMATION: Fall, head trauma COMPARISON: None available. TECHNIQUE: Contiguous axial imaging was performed from the skull base to vertex without intravenous administration of contrast. This CT examination was performed using dose optimization techniques as appropriate, variously including the following: *Automated exposure control *Adjustment of mA and/or kV according to patient size (this includes techniques or standardized protocols for targeted exams where dose is matched to indication/reason for exam; i.e. extremities or head) *Use of iterative reconstruction technique DLP: 02/16/2020 mGy-cm FINDINGS: The ventricles and sulci are normal in size and configuration. No acute hemorrhage, mass effect or shift is evident. Gu-white differentiation is maintained. In the posterior fossa, the brainstem, cerebellum and fourth ventricle image normally. A left frontal scalp hematoma is present. The underlying bony calvarium is intact. There is near total opacification of the right maxillary sinus with heterogeneous and hyperdense elements, suggesting underlying fungal sinusitis.. CT/CT head/brain wo IV con IMPRESSION: 1. No acute cranial hemorrhage, mass effect or shift. 2. Left frontal scalp hematoma. 3. Near complete opacification of the right maxillary sinus with hyperdense elements suggesting fungal sinusitis..
--- NOTE | ~2023-08-25 | XR_ITS ---
EXAMINATION: XR THORACIC SPINE CLINICAL INFORMATION: Back pain, fall COMPARISON: None available. TECHNIQUE: 3 views of the thoracic spine were obtained. FINDINGS: There is no fracture or bone destruction seen and the vertebral alignment is normal. There is no disc space narrowing. There is no abnormality of the paraspinal soft tissues. XR/XR thoracic spine 3V IMPRESSION: Unremarkable examination.
--- NOTE | ~2023-08-25 | CT_ITS ---
EXAMINATION: CT CERVICAL SPINE WITHOUT CONTRAST CLINICAL INFORMATION: Neck pain, trauma. COMPARISON: None available. TECHNIQUE: Multiple helical unenhanced images were acquired through the cervical spine. Multiplanar computer reformatted images were acquired from the dataset in the sagittal and coronal plane. This CT examination was performed using dose optimization techniques as appropriate, variously including the following: *Automated exposure control *Adjustment of mA and/or kV according to patient size (this includes techniques or standardized protocols for targeted exams where dose is matched to indication/reason for exam; i.e. extremities or head) *Use of iterative reconstruction technique DLP: 450 mGy-cm FINDINGS: CT examination of the cervical spine shows no prevertebral soft tissue swelling. Vertebral body height and alignment are maintained. No acute fracture or subluxation is evident. The neck is held in flexion, with exaggerated kyphosis at this C3 through C5 level. The odontoid process, cervicothoracic and cervical medullary junctions are normal. There are no bone lesions. Degenerative disc disease is evident at C4-5, C5-6 and C6-7 with disc space narrowing and prominent anterior and to a lesser extent posterior osteophytes. No cervical mass or adenopathy is detected. CT/CT cervical spine wo IV con IMPRESSION: 1. No acute cervical spine fracture or subluxation. 2. Degenerative disc disease at C4-C7, with neck held in flexion in the mid cervical spine. Fleischner guidelines were followed.
[2023-08-25 15:44] VITALS: BP 185/105; PULSE 64; RESP 18; TEMP 36.4; O2SAT 99; BMI 29.0
--- NOTE | 2023-08-25 15:45 | ED_ITS ---
HPI - Headache General Chief Complaint: Fall Stated Complaint: Head injury Time Seen by Provider: 08/25/23 19:28 Source: patient, RN notes reviewed and old records reviewed Mode of arrival: ambulatory History of Present Illness HPI Narrative: 48-year-old female with a past medical history allergic rhinitis, HTN, presenting to the ED complaining of headache, neck and back pain s/p mechanical slip and fall on her kids toys [employer]. Reports fell forward, denies LOC or symptoms prior to fall. Denies taking anticoagulation. Denies vision change/loss, nausea/vomiting incontinence/retention. Admits to taking her antihypertensive this morning MD elicited complaint: headache Related Data Previous Rx's Medication Instructions Recorded tobramycin 0.3 % eye drops 1 drp ophthalmic (eye) Q4H 7 days 05/21/23 #5 mL nitrofurantoin 100 mg PO BID 5 days #10 caps 07/27/23 monohydrate/macrocrystals 100 mg capsule (Macrobid) ascorbic acid (vitamin C) 250 mg 250 mg PO DAILY #60 tabs 07/29/23 tablet cholecalciferol (vitamin D3) 50 50 mcg PO DAILY #90 tabs 07/29/23 mcg (2,000 unit) tablet ferrous sulfate 325 mg (65 mg 325 mg PO BID #60 tabs 07/29/23 iron) tablet lisinopril 40 mg tablet 40 mg PO DAILY 90 days #90 tabs 07/29/23 loratadine 10 mg tablet 10 mg PO DAILY 30 days #30 tabs 07/29/23 cefuroxime axetil 500 mg tablet 500 mg PO BID 10 days #20 tabs 08/04/23 codeine 10 mg-guaifenesin 100 mg/5 10 ml PO Q6H PRN cough #237 mL 08/04/23 mL oral liquid acetaminophen 500 mg tablet 500 mg PO Q6H PRN fever or pain 08/25/23 (Tylenol Extra Strength) #14 tabs amoxicillin 875 mg tablet 875 mg PO BID 7 days #14 tabs 08/25/23 cyclobenzaprine 5 mg tablet 5 mg PO Q8H PRN pain (scale score 08/25/23 7-10) 5 days #14 tabs lidocaine 5 % topical patch 1 patch topical DAILY PRN pain #30 08/25/23 (Lidoderm) ea naproxen 500 mg tablet 500 mg PO BID PRN pain 10 days #20 08/25/23 tabs Allergies Allergy/AdvReac Type Severity Reaction Status Date / Time gluten [GLUTEN] Allergy Intermediate HIVES Verified 08/25/23 15:44 ciprofloxacin [From CIPRO] Allergy Unknown UNKNOWN Verified 08/25/23 15:44 PEPPERS Allergy Severe HIVES Uncoded 07/29/23 09:53 Review of Systems Review of Systems: Constitutional: No Fever, No Chills ENT/Mouth: No Ear Pain, No Nasal Congestion,No sore throat, No Rhinorrhea, No Swallowing Difficulty Cardiovascular: No Chest Pain, No SOB Respiratory: No Cough Gastrointestinal: No Nausea, No Vomiting, No Diarrhea, No Constipation, No Abdominal pain Genitourinary: No Dysuria, No Urinary Frequency, No Hematuria, No Urinary Incontinence/retention Musculoskeletal: +neck/back pain, + Myalgias, No Joint Swelling Skin: No Skin Lesions, No rash Neuro: No Weakness, No Numbness, No Paresthesias, + headache, + head injury Yes all other systems are reviewed and are negative Constitutional: Constitutional: Reports as per HPI Neurologic: Denies Abnormal speech present [facility] Past Medical History Attestation statement: The following information was validated with the patient. Source: old records reviewed Medical History Goiter Allergic rhinitis Impaired glucose tolerance Essential hypertension Surgical History History of adenoidectomy Family History Family History Mother Hypertension CVD (cardiovascular disease) Breast cancer Pacemaker Father Hypertension Diabetes Parkinson's disease Brother In good health Brother In good health Son In good health Son In good health Daughter In good health Family/Other Chronic mental illness Social History Social History Household Members: Spouse Housing: House Alcohol intake: never Patient Tobacco Use Status: Never used Tobacco e-Cigarette/Vaping Use: Never Used Second Hand Smoke Exposure: No service: No Current occupational status: unemployed Cognitive needs: No Hearing needs: No Vision needs: No Physical Exam Vital Signs: Vital Signs: Last Vital Signs Temp 97.2 F 08/25/23 19:22 Pulse 64 08/25/23 19:22 Resp 18 08/25/23 19:22 BP 209/94 H 08/25/23 19:22 Pulse Ox 97 08/25/23 19:22 O2 Del Method Room Air 08/25/23 19:22 BMI result Body Mass Index 29.0 Const: General: cooperative, healthy appearing and no acute distress Orientation/consciousness: patient oriented x3 Limitations: no limitations HEENT: Other: + small left frontal hematoma noted with tenderness. No palpable step- offs/ecchymosis or erythema Head: Yes normal to inspection, Yes No palpable skull fracture present, No Moore's sign and No raccoon eyes Ears: hearing grossly normal bilaterally General nose exam: Normal external nose present Face and sinus: Yes normal facial exam Mouth: Normal oral and palatal mucosa present Eyes: General: appearance normal, both eyes and all related structures EOM: EOMs intact bilaterally Neck: Neck: Yes normal visual inspection and Yes no meningeal signs Resp: Effort & Inspection: normal respiratory effort and no respiratory distress Cardio: Rate: regular rate GI: Inspection: Yes normal to inspection Palpation (GI): Soft to palpation, nontender, no guarding and not rigid : General: Yes no CVA tenderness Back/Spine/Pelvis: Other: No midline cervical/thoracic/lumbar spinous tenderness/step-off or deformity. + mild bilateral paraspinal/MSK back tenderness to palpation to lumbar region Back: no CVA tenderness Skin: Rashes: no rashes Wounds: no wounds Neuro: Other: Strength intact throughout. No saddle anesthesia. Sensation intact to light t ouch. Neurovascular intact distally General: patient oriented x3, gait normal, tone normal, moves all extremities, no meningeal signs, no focal motor deficits and CN's II-XI intact bilaterally Cranial nerves: Yes CN's II-XII intact bilaterally Cognition (Neuro): normal cognition Speech: No Abnormal speech present Gait exam (Neuro): Normal gait present Motor exam (neuro): 5/5 motor strength present throughout Extrem: General: Yes normal to inspection Course Course Course Narrative: RME: 48yo F c/o NEIL/neck pain and back pain s/p slip and fall on her kids toys [employer]. denies sx prior to fall or taking AC. denies LOC/N/V Head/C-spine/back x-rays ordered Full HPI, ROS and PE to be performed by primary ED provider. CT head/brain wo IV con IMPRESSION: 1. No acute cranial hemorrhage, mass effect or shift. 2. Left frontal scalp hematoma. 3. Near complete opacification of the right maxillary sinus with hyperdense elements suggesting fungal sinusitis. CT cervical spine wo IV con IMPRESSION: 1. No acute cervical spine fracture or subluxation. 2. Degenerative disc disease at C4-C7, with neck held in flexion in the mid cervical spine. Fleischner guidelines were followed. XR thoracic spine 3V IMPRESSION: Unremarkable examination. XR lumbar spine 2-3V IMPRESSION: No acute fracture or subluxation of the lumbar spine. -patient still HTNsive on re-eval. States this is typical of her when she is in pain. Admits to taking her Lisinopril this AM. Denies CP > low concern for HTNsive urgency/emergency > 2014--patient's blood pressure still elevated will give 5 mg of Norvasc & re- evaluate >>2028--repeat blood pressure after pain medication when 186/78, prior to Norvasc administration. Norvasc discontinued. Discussed with patient needed close follow-up with PCP in compliance with home antihypertensives. >Results discussed with patient including worrisome signs and symptoms and strict return precautions, and when to return to the emergency department. They verbalized understanding and feel safe for discharge at this time. Medications Administered Discontinued Medications Generic Name Dose Route Start Last Admin Trade Name Freq PRN Reason Stop Dose Admin Cyclobenzaprine HCl 10 mg 08/25/23 19:28 08/25/23 19:45 Cyclobenzaprine Hcl 10 Mg Tablet PO 08/25/23 19:29 10 mg ONCE ONE Administration Ibuprofen 800 mg 08/25/23 19:28 08/25/23 19:45 Ibuprofen 800 Mg Tablet PO 08/25/23 19:29 800 mg ONCE ONE Administration Lidocaine 1 patch 08/25/23 19:28 08/25/23 19:46 Lidocaine 4 % Patch Adh..Patch TRANSDERMA 08/25/23 19:29 1 patch ONCE ONE Administration Protocol Medical Decision Making Medical Decision Making MDM Narrative: 48-year-old female with a past medical history allergic rhinitis, HTN, presenting to the ED complaining of headache, neck and back pain s/p mechanical slip and fall on her kids toys [employer]. On exam HTNsive likely from pain, NAD, no midline spinous ttp or red flag sx. ambulating w/steady gait. Concern for concussion/hematoma vs ICH vs fx. Concern for MSK pain/spasm. low suspicion for epidural abscess, cauda equina or cord compression CT & XRs ordered Please refer to course for remaining clinical decision making, interpretation of labs/imaging results, and discussions with consultants and/or family members. Differential Diagnosis Differential Diagnoses: The differential diagnosis associated with the presentation includes As above Admission/Observation Consideration of admission/observation: Escalation of care including admission/observation considered Lab Data MDM Lab Attestation statement: I reviewed the patient's lab results. Radiology Impression Discussion of test interpretation with radiology: I have reviewed the radiologist's reading. External Record Review External record reviewed: Inpatient record, Office record, Outpatient record, Prior outpatient labs, Prior outpatient radiology, Primary care record and Outside ED record Tests considered The following testing was considered but not selected: As above Discharge Plan Discharge Clinical Impression: Hematoma, Head injury, Sinusitis, Musculoskeletal pain Patient Disposition: Home, Self-Care Instructions: Sinusitis (ED), Head Injury (ED), Musculoskeletal Pain (ED) Additional Instructions: Your CT scan shows a frontal hematoma. Ice. CT of her face also is suggestive of a fungal sinusitis. Amoxicillin as an antibiotic however you need to follow-up with the ENT specialist You also have some arthritic changes of your neck The x-rays of yourr back were unremarkable Your pain is likely musculoskeletal Flexeril is a muscle relaxer, take at night as it makes you drowsy, do not drive, drink alcohol, or operate machinery while taking it Naproxen as an anti-inflammatory / pain medication, take with food Lidoderm patches are numbing patches, apply to painful area In addition take Tylenol at home If symptoms persist or worsen, pain becomes unbearable, you developed urinary retention or incontinence, or weakness return to the ED Means tomograf?a computarizada muestra un hematoma frontal. Hielo. La tomograf?a computarizada de means cally tambi?n sugiere ronit sinusitis f?ngica. Amoxicilina cammie antibi?jodi sin embargo es necesario realizar un seguimiento con el otorrinolaring?logo. Tambi?n tienes algunos cambios artr?ticos en tu amberly. Las radiograf?as de tu espalda no ten?an nada especial. Es probable que means dolor sea musculoesquel?jodi. Flexeril es un relajante muscular, t?marino por la noche ya que produce somnolencia, no conduzca, vaishnavi alcohol ni opere maquinaria mientras lo charity. Naproxeno cammie antiinflamatorio/analg?sico, fortunato con alimentos Los parches de Lidoderm son parches adormecedores, se aplican en el ?percy dolorida. Adem?s, tome Tylenol en casa. Si los s?ntomas persisten o empeoran, el dolor se vuelve insoportable, usted desarrolla retenci?n urinaria o incontinencia, o debilidad, regrese al servicio de urgencias. Prescriptions: New amoxicillin 875 mg tablet 875 mg PO BID 7 Days Qty: 14 0RF acetaminophen [Tylenol Extra Strength] 500 mg tablet 500 mg PO Q6H PRN (Reason: fever or pain) Qty: 14 0RF lidocaine [Lidoderm] 5 % adhesive patch,medicated 1 patch topical DAILY MDD remove after 12 hours PRN (Reason: pain) Qty: 30 0RF Rx Instructions: leave on most painful area for up to 12 hrs naproxen 500 mg tablet 500 mg PO BID PRN (Reason: pain) 10 Days Qty: 20 0RF cyclobenzaprine 5 mg tablet 5 mg PO Q8H PRN (Reason: pain (scale score 7-10)) 5 Days Qty: 14 0RF No Action tobramycin 0.3 % drops 1 drp ophthalmic (eye) Q4H 7 Days Qty: 5 0RF ascorbic acid (vitamin C) 250 mg tablet 250 mg PO DAILY Qty: 60 0RF cholecalciferol (vitamin D3) 50 mcg (2,000 unit) tablet 50 mcg PO DAILY Qty: 90 0RF ferrous sulfate 325 mg (65 mg iron) tablet 325 mg PO BID Qty: 60 6RF lisinopril 40 mg tablet 40 mg PO DAILY 90 Days Qty: 90 1RF loratadine 10 mg tablet 10 mg PO DAILY 30 Days Qty: 30 6RF codeine-guaifenesin 10-100 mg/5 mL liquid 10 ml PO Q6H PRN (Reason: cough) Qty: 237 0RF cefuroxime axetil 500 mg tablet 500 mg PO BID 10 Days Qty: 20 0RF nitrofurantoin monohyd/m-cryst [Macrobid] 100 mg capsule 100 mg PO BID 5 Days Qty: 10 0RF Referrals: Madhavi Isaacs MD [Primary Care Provider] - 3 days Print Language: Thai
[2023-08-25 19:22] VITALS: BP 209/94; PULSE 64; RESP 18; TEMP 36.2; O2SAT 97
[2023-08-25] MEDS: Ibuprofen 800 MG TABLET PO (19:45)
[2023-08-25] MEDS: Cyclobenzaprine HCl 10 MG TABLET PO (19:45)
[2023-08-25] MEDS: Lidocaine 4 % Patch ADH..PATCH 1 PATCH TRANSDERMA (19:46)
--- NOTE | 2023-08-25 19:50 | PC.NURSE ---
pt medicated per MAR.
[2023-08-25 20:29] VITALS: BP 186/78; PULSE 65; RESP 16; O2SAT 99
== END 2023-08-25 21:01 | disposition home or self-care (01) ==
PROVIDERS: Emergency Provider Emergency Medicine; PCP Internal Medicine
DX: S00.93XA Contusion of unspecified part of head, initial encounter (principal); J32.9 Chronic sinusitis, unspecified; M79.10 Myalgia, unspecified site; M54.2 Cervicalgia; M54.50 Low back pain, unspecified; M54.6 Pain in thoracic spine; W01.10XA Fall on same level from slipping, tripping and stumbling with subsequent striking against unspecified object, initial encounter; Y93.9 Activity, unspecified; Y92.9 Unspecified place or not applicable; Y99.9 Unspecified external cause status; Z79.899 Other long term (current) drug therapy
CPT/HCPCS: 70450; 72072; 72100; 72125; 99283; 99284

== ENCOUNTER 2023-09-15 08:40 | Outpatient (AMB) | payer OTHER, SELFPAY ==
--- NOTE | 2023-09-15 08:50 | A.OFFVIS_ITS ---
Intake Vital Signs 09/15/23 08:57 Height 5 ft 10 in Weight 205 lb 7.533 oz BMI 29.5 BP 160/90 H Blood Pressure Location Lt brachial Position Sitting Intake Visit Reasons: High risk breast cancer, poss genetic testing Intake Note: Patient is seen in office evaluation of high risk breast cancer & possible genetic testing. 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 Name: aKmilah PACHECO Accompanied by: Self / Same As Patient Allergies gluten [GLUTEN] Allergy (Intermediate, Verified 09/15/23 08:54) HIVES ciprofloxacin [From CIPRO] Allergy (Unknown, Verified 09/15/23 08:54) UNKNOWN PEPPERS Allergy (Severe, Uncoded 09/15/23 08:54) HIVES Medication List - Last Reconciled 09/15/23 by Haroon Crespo MD acetaminophen (Tylenol Extra Strength) 500 mg PO Q6H PRN ascorbic acid (vitamin C) 250 mg PO DAILY cefuroxime axetil 500 mg PO BID 10 days cholecalciferol (vitamin D3) 50 mcg PO DAILY cyclobenzaprine 5 mg PO Q8H PRN 5 days ferrous sulfate 325 mg PO BID lisinopril 40 mg PO DAILY 90 days loratadine 10 mg PO DAILY 30 days naproxen 500 mg PO BID PRN 10 days nitrofurantoin monohyd/m-cryst 100 mg (Macrobid) 100 mg PO BID 5 days HPI HPI Comments History of Present Illness Details 48-year-old female patient presenting fo r high risk breast examination. She has a strong family history of breast cancer including her mother who developed breast cancer in her 70s. Her mother also had ovarian cancer as did her niece. She has a nephew with prostate cancer. Mammogram from 10/15/2022 revealed prominent left axillary lymphadenopathy felt to be suspicious (BI-RADS 0). Ultrasound of the left axilla was recommended. Her [facility] remaining lifetime risk of breast cancer was calculated at 23% placing her at high risk for breast cancer. Subsequent ultrasound left axilla performed on 10/21/2022 revealed a probably benign lymph node (BI-RADS 3). Follow-up ultrasound in 6 months was recommended. The patient reports feeling thickening in the left breast at the upper outer quadrant with no associated tenderness. She denies skin changes, nipple discharge, or other palpable masses. She is 4 para 3 with 1 loss. She reports breast-feeding her children. [facility] Medical History Goiter Allergic rhinitis Impaired glucose tolerance Essential hypertension Surgical History History of tonsillectomy and adenoidectomy Family History Mother Hypertension CVD (cardiovascular disease) Breast cancer Pacemaker Father Hypertension Diabetes Parkinson's disease Brother In good health Brother In good health Son In good health Son In good health Daughter In good health Family/Other Chronic mental illness Family/Other Prostate cancer Family/Other Ovarian cancer Family/Other Ovarian cancer Social History Household Members: Spouse Housing: House Alcohol intake: never Patient Tobacco Use Status: Never used Tobacco e-Cigarette/Vaping Use: Never Used Second Hand Smoke Exposure: No service: No Current occupational status: unemployed Cognitive needs: No Hearing needs: No Vision needs: No Female Reproductive History Menstrual Age of Menarche: 9 Date of last menstrual period: 08/29/23 Total pregnancies: 4 Number of Living Children: 3 Ab spontaneous: 1 Review of Systems Const All systems reviewed & are unremarkable except as noted in HPI and below Denies chills, Denies fever(s), Denies headache(s), Denies poor appetite and Denies weakness ENT Denies headache(s) Card Denies chest pain, Denies irregular heart rhythm, Denies palpitations and Denies dyspnea Resp Denies cough, Denies excessive phlegm production and Denies dyspnea GI Denies abdominal pain, Denies bloating, Denies change in bowel habits, Denies constipation, Denies heartburn, Denies diarrhea, Denies nausea and Denies vomiting Denies urinary frequency Musc Denies back pain, Denies muscle weakness and Denies numbness Skin/Breast Reports as per HPI, Denies changing lesions and Denies unusual bruising Neuro Denies headache(s), Denies numbness, Denies paresthesias and Denies weakness Psych Denies anxiety and Denies depression Endo Denies palpitations Leon/Lymph Denies lymphadenopathy Physical Exam Vital Signs: Last Vital Signs BP 160/90 H 09/15/23 08:57 BMI result Body Mass Index 29.5 Const General: cooperative and no acute distress Nutritional Appearance: well nourished Orientation/consciousness: patient oriented x3 Limitations: no limitations HEENT Head: Yes normocephalic and Yes atraumatic Ears: hearing grossly normal bilaterally Chest Other: Left breast: No skin change, no nipple retraction, no nipple discharge, no palpable mass, no enlarged lymph nodes. Mild fibrocystic pattern left breast with no discrete mass appreciated. No tenderness elicited. Right breast: No skin change, no nipple retraction, no nipple discharge, no palpable mass, no enlarged lymph nodes. Resp Effort & Inspection: normal respiratory effort, no audible wheezes, no cough and no respiratory distress Cardio Jugular venous distension: no JVD GI Inspection: Yes normal to inspection Skin Other: Warm, dry, no rash Neuro General: patient oriented x3 Extrem General: Yes no clubbing, cyanosis or edema Assessment & Plan Assessment & Plan (1) At high risk for breast cancer: Code(s): Z91.89 - Other specified personal risk factors, not elsewhere classified (2) Left breast mass: Code(s): N63.20 - Unspecified lump in the left breast, unspecified quadrant Qualifiers: Breast mass location: upper outer quadrant Qualified Code(s): N63.21 - Unspecified lump in the left breast, upper outer quadrant Plan 48-year-old female patient determined to be at high risk for breast cancer presenting today for genetic testing. We discussed the genetic testing process and she consents to proceeding. She will return at a later date for testing and return approximately 6 weeks to review the results. Examination today did not reveal any significant findings in either breast however I would recommend repeating the mammogram and ultrasound sooner than later given the patient's self examination findings. She should also be placed on the high risk protocol including q.6 month physical examination, yearly mammogram alternating every 6 months with yearly breast MRI. An MRI is ordered by Dr. Tomlinson. She expressed understanding and agrees with the plan. Orders: Orders MM tomosynthesis diagnostic BI Today Z12.39 - Encounter for other screening for malignant neoplasm of breast US breast LT complete Today N63.20 - Unspecified lump in the left breast, unspecified quadrant, Z91.89 - Other specified personal risk factors, not elsewhere classified Coding Level of Care Code New Pt Level 4 (45629) Diagnoses At high risk for breast cancer Z91.89 Mass of upper outer quadrant of left breast N63.21 Breast mass location: upper outer quadrant
[2023-09-15 08:57] VITALS: BP 160/90; BMI 29.5
== END 2023-09-15 09:30 | disposition home or self-care (01) ==
PROVIDERS: PCP Internal Medicine; Referring Provider Obstetrics & Gynecology; Visit Provider Surgery
DX: Z91.89 Other specified personal risk factors, not elsewhere classified (principal); N63.21 Unspecified lump in the left breast, upper outer quadrant
CPT/HCPCS: 99204

== ENCOUNTER → 2023-09-15 08:40 | Outpatient (BNVA) | payer OTHER, SELFPAY | PROVIDERS: PCP Internal Medicine; Referring Provider Obstetrics & Gynecology; Visit Provider Surgery | DX: N63.21 Unspecified lump in the left breast, upper outer quadrant (principal); Z91.89 Other specified personal risk factors, not elsewhere classified | CPT/HCPCS: 99202 ==

== ENCOUNTER 2023-09-23 09:20 | Outpatient (AMB) | payer OTHER, SELFPAY ==
[2023-09-23 09:21] VITALS: BP 160/96; PULSE 88; RESP 18; O2SAT 96; BMI 29.1
--- NOTE | 2023-09-23 09:21 | MHC.PC.OV ---
Vital Signs 09/23/23 09:21 Height 5 ft 10 in Weight 203 lb BMI 29.1 BP 160/96 H Blood Pressure Location Lt brachial Position Sitting Respiration 18 Pulse 88 Pulse Source Pulse Oximeter Pulse Oximetry (%) 96 Oxygen Delivery Method Room Air Intake Visit Reasons: Annual Exam Intake Note: Patient is here today for a physical. 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 Accompanied by: Self / Same As Patient Allergies gluten [GLUTEN] Allergy (Intermediate, Verified 09/23/23 09:41) HIVES ciprofloxacin [From CIPRO] Allergy (Unknown, Verified 09/23/23 09:41) UNKNOWN PEPPERS Allergy (Severe, Uncoded 09/23/23 09:41) HIVES Medication List - Last Reconciled 09/23/23 by Madhavi Mc MD acetaminophen (Tylenol Extra Strength) 500 mg PO Q6H PRN ascorbic acid (vitamin C) 250 mg PO DAILY cefuroxime axetil 500 mg PO BID 10 days cholecalciferol (vitamin D3) 50 mcg PO DAILY cyclobenzaprine 5 mg PO Q8H PRN 5 days ferrous sulfate 325 mg PO BID lisinopril 40 mg PO DAILY 90 days loratadine 10 mg PO DAILY 30 days naproxen 500 mg PO BID PRN 10 days Tobacco use date assessed: 09/23/23 Dental Screening Dental Screen Date: 09/23/23 Did you have a dental visit in the last 12 months?: Yes Did you have a dental problem in the last 6 months where you did not have access to dental care?: No Was dental information given to patient?: Patient has dentist HPI HPI Comments History of Present Illness Details This is a 48-year-old female that comes for her physical exam. Has left breast mass that was evaluated by surgery and last mammogram was October 2022. She already has a mammogram scheduled for this year. No chest pain or shortness of breath. Was referred to open access last year for colonoscopy. She thinks that she had to cancel the appointment. I refer her again for colonoscopy through open access. Pap smear done 2022. Complains of cough that started about 3 days ago and has sick contacts and 1 of them had RSV. No fever. Has iron-deficiency anemia as well as leukocytosis that will be repeated. Also had blood in the urine and urinalysis will be repeated. She is not in her menstrual period. [facility] Medical History (Updated 09/23/23 @ 09:54 by Madhavi Mc MD) Goiter Allergic rhinitis Impaired glucose tolerance Essential hypertension Surgical History History of tonsillectomy and adenoidectomy Family History Mother Hypertension CVD (cardiovascular disease) Breast cancer Pacemaker Father Hypertension Diabetes Parkinson's disease Brother In good health Brother In good health Son In good health Son In good health Daughter In good health Family/Other Chronic mental illness Family/Other Prostate cancer Family/Other Ovarian cancer Family/Other Ovarian cancer Social History Household Members: Spouse Housing: House Alcohol intake: never Patient Tobacco Use Status: Never used Tobacco e-Cigarette/Vaping Use: Never Used Second Hand Smoke Exposure: No service: No Current occupational status: unemployed Cognitive needs: No Hearing needs: No Vision needs: No Female Reproductive History Menstrual Age of Menarche: 9 Questionnaire PHQ-9 Over the last 2 weeks, how often have you been bothered by any of the following problems? 1. Little interest or pleasure in doing things: not at all 2. Feeling down, depressed, or hopeless: not at all 3. Trouble falling or staying asleep, or sleeping too much: not at all 4. Feeling tired or having little energy: not at all 5. Poor appetite or overeating: not at all 6. Feeling bad about yourself - or that you are a failure or have let yourself or your family down: not at all 7. Trouble concentrating on things, such as reading the newspaper or watching television: not at all 8. Moving or speaking so slowly that other people could have noticed. Or the opposite - being so fidgety or restless that you have been moving around a lot more than usual: not at all 9. Thoughts that you would be better off or of hurting yourself in some way: not at all Total score: 0 Depression Screening Interpretation: Negative Depression Screening Done: Yes 56349 - PHQ-9 Billing: Yes Source: Developed by Drs. Aquiles Damian, Sharyn Sung, Richy Maguire and colleagues, with an educational no from [employer]. Thrive Questionnaire Date Thrive assessed: 09/23/23 I am a: Patient What is your living situation today?: I have a steady place to live Within the past 12 months, did the food you bought not last and you didn't have the money to get more?: Never true Within the past 12 months, did you worry whether your food would run out before you got money to buy more?: Never true Do you have trouble paying for medicines?: No Do you have trouble getting transportation to medical appointments?: No Do you have trouble paying your heating and electricity bill?: No Do you have trouble taking care of your child, family member or friend?: No Do you have trouble with day-to-day activities such as bathing, preparing meals, shopping, managing finances, etc.?: No Are you currently unemployed and looking for a job?: No Are you interested in more education?: No Please select the resources that you would like help with: None Currently or been in a relationship where the following occur: no concerns reported AUDIT C Alcohol Use Questionnaire (AUDIT-C) 1. How often do you have a drink containing alcohol?: Never Total Score: 0 Score Reviewed/Action Taken: No CHELE-7 AMB Questionnaire CHELE-7 Date CHELE - 7 assessed: 09/23/23 Feeling nervous, anxious, or on edge: 0 = Not at all Not being able to stop or control worryin = Not at all Worrying too much about different things: 0 = Not at all Trouble relaxin = Not at all Being so restless that it is hard to sit still: 0 = Not at all Becoming easily annoyed or irritable: 0 = Not at all Feeling afraid as if something awful might happen: 0 = Not at all Total CHELE-7 score (0-4 normal; 5-9 mild; 10-14 moderate; 15-21 severe): 0 Source: Developed by Drs. Aquiles Damian, Sharyn Sung, Richy Maguire and colleagues, with an educational no from [employer]. CHELE-7 Assessment Billing CHELE-7 Assessment Tool: CHELE-7 Assessment 38736 Review of Systems Const All systems reviewed & are unremarkable except as noted in HPI and below Eyes Reports no additional complaints, Denies change in vision and Denies other visual disturbances Card Denies chest pain at rest, Denies chest pain with activity, Denies edema, Denies irregular heart rhythm, Denies claudication, Denies dyspnea, Denies dyspnea on exertion, Denies orthopnea, Denies paroxysmal nocturnal dyspnea and Denies slow heart rate Resp Denies cough, Denies dyspnea and Denies dyspnea on exertion GI Denies abdominal pain, Denies change in bowel habits, Denies excessive flatus, Denies nausea and Denies vomiting Denies urinary incontinence, Denies urinary hesitancy and Denies urinary urgency Musc Denies abnormal gait, Denies atrophy, Denies deformity and Denies limited range of motion Skin/Breast Denies bleeding lesions, Denies changing lesions and Denies rash Neuro Denies abnormal gait, Denies behavioral changes, Denies confusion and Denies lack of coordination Psych Denies behavioral changes and Denies confusion Physical exam (Primary Care) Vital Signs: Last Vital Signs Pulse 88 09/23/23 09:21 Resp 18 09/23/23 09:21 BP 160/96 H 09/23/23 09:21 Pulse Ox 96 09/23/23 09:21 Oxygen Delivery Method Room Air 09/23/23 09:21 BMI result Body Mass Index 29.1 Tobacco/Smoking Status: Tobacco use Status Tobacco use date assessed 09/23/23 09/23/23 09:26 Patient Tobacco Use Status Never used Tobacco 09/23/23 09:21 e-Cigarette/Vaping Use Never Used 09/23/23 09:21 PHQ-9: PHQ-9 Score PHQ-9: Total score 0 09/23/23 09:33 Depression Screening Interpretation: Negative Thrive Assessment: Date of Thrive Assessment Date Thrive assessed 09/23/23 09/23/23 09:26 Currently or been in a relationship where the following occur: no concerns reported Const General: No confusion Orientation/consciousness: patient oriented x3 and No confusion HENMT Head: Yes normal to inspection, Yes normocephalic and Yes atraumatic Ears: external ears normal Eyes General: appearance normal, both eyes and all related structures Eyelids: Yes eyelids normal Conjunctivae: conjunctivae normal Neck Neck: Yes normal visual inspection and Yes supple Resp Effort & Inspection: normal respiratory effort Auscultation: clear to auscultation bilaterally Cardio Jugular venous distension: no JVD Rate: regular rate Rhythm: regular rhythm Heart sounds: S1 normal heart sound present and S2 normal heart sound present GI Inspection: Yes normal to inspection Palpation (GI): Soft to palpation and nontender Auscultation: normal bowel sounds Skin General skin exam: no rashes or lesions noted Neuro General: patient oriented x3, no focal motor deficits and No confusion Extrem General: Yes full ROM Psych Appearance: grossly normal Assessment and Plan Assessment & Plan (1) Physical exam: Code(s): Z00.00 - Encounter for general adult medical examination without abnormal findings Plan: Repeat in a year. Orders: Orders Complete Blood Count Auto Diff Today D64.9 - Anemia, unspecified Vitamin B12 and Folate Today E53.8 - Deficiency of other specified B group vitamins Comprehensive [place]. Panel Fast Today I10 - Essential (primary) hypertension Lipid Panel Today I10 - Essential (primary) hypertension SARS-CoV2/FLU/RSV Today R09.89 - Other specified symptoms and signs involving the circulatory and respiratory systems IRON PROFILE Today D64.9 - Anemia, unspecified Vitamin D 25-OH Total Today E55.9 - Vitamin D deficiency, unspecified UA CC w/rflx Micro + Cult Today R30.0 - Dysuria Referrals Open Access Screening Colonoscopy Referral Z12.11 - Encounter for screening for malignant neoplasm of colon Medications: New amlodipine 2.5 mg PO DAILY 90 days 90 tabs 0RF I10 - Essential (primary) hypertension Refilled ascorbic acid (vitamin C) 250 mg PO DAILY 60 tabs 0RF D64.9 - Anemia, unspecified cholecalciferol (vitamin D3) 50 mcg PO DAILY 90 tabs 0RF R79.89 - Other specified abnormal findings of blood chemistry Discontinued cefuroxime axetil Discontinued Reason: Patient Completed Course 500 mg PO BID 10 days 20 tabs 0RF Coding Level of Care Code Est Pt Prev Care 40-64y(09032) Diagnoses Physical exam Z00.00 Additional Codes CHELE-7 Assessment Billing - CHELE-7 Assessment Tool: CHELE-7 Assessment 10098 ([id number]) Time Spent (min) 33
== END 2023-09-23 09:54 | disposition home or self-care (01) ==
PROVIDERS: PCP Internal Medicine; Visit Provider Internal Medicine
DX: Z00.00 Encounter for general adult medical examination without abnormal findings (principal); I10 Essential (primary) hypertension; E55.9 Vitamin D deficiency, unspecified
CPT/HCPCS: 99396

== ENCOUNTER 2023-10-17 16:30 | Emergency (ER) | payer OTHER, SELFPAY ==
[2023-10-17 16:56] VITALS: BP 211/103; PULSE 92; RESP 18; TEMP 36.9; O2SAT 100; BMI 29.7
--- NOTE | 2023-10-17 16:57 | ED.GENADULT ---
HPI - General Adult General Chief complaint: Upper Respiratory Symptoms Stated complaint: cough Time Seen by Provider: 10/17/23 17:06 Source: patient, RN notes reviewed and old records reviewed Mode of arrival: ambulatory History of Present Illness HPI narrative: 48-year-old female with a past medical history of hypertension, goiter, allergic rhinitis, presenting to the ED complaining of rhinorrhea, intermittent productive cough, chest discomfort when coughing, mild SOB, and sore throat since yesterday. Has tried multiple OTC medications for cough without relief. Admits and daughter both sick, recently traveled home from [place]. Admits to recently seeing PCP and Lisinopril being increased (from 30mg to 40mg) which she took today, and Amlodipine was added however she has not yet picked up from pharmacy. Denies ear pain, personal travel, dizziness, vision changes Related Data Previous Rx's Medication Instructions Recorded ferrous sulfate 325 mg (65 mg 325 mg PO BID #60 tabs 07/29/23 iron) tablet lisinopril 40 mg tablet 40 mg PO DAILY 90 days #90 tabs 07/29/23 loratadine 10 mg tablet 10 mg PO DAILY 30 days #30 tabs 07/29/23 acetaminophen 500 mg tablet 500 mg PO Q6H PRN fever or pain 08/25/23 (Tylenol Extra Strength) #14 tabs cyclobenzaprine 5 mg tablet 5 mg PO Q8H PRN pain (scale score 08/25/23 7-10) 5 days #14 tabs naproxen 500 mg tablet 500 mg PO BID PRN pain 10 days #20 08/25/23 tabs amlodipine 2.5 mg tablet 2.5 mg PO DAILY 90 days #90 tabs 09/23/23 ascorbic acid (vitamin C) 250 mg 250 mg PO DAILY #60 tabs 09/23/23 tablet cholecalciferol (vitamin D3) 50 50 mcg PO DAILY #90 tabs 09/23/23 mcg (2,000 unit) tablet albuterol sulfate 90 mcg/actuation 2 puff inhalation Q4-6H PRN 10/17/23 aerosol inhaler shortness of breath or wheezing #6.7 grams benzonatate 100 mg capsule 100 mg PO TID PRN cough #14 caps 10/17/23 hydrocodone-homatropine 5 mg-1.5 5 ml PO Q4-6H PRN cough #60 mL 02/03/24 mg/5 mL (5 mL) oral syrup (Hycodan) Allergies Allergy/AdvReac Type Severity Reaction Status Date / Time gluten [GLUTEN] Allergy Intermediate HIVES Verified 10/17/23 17:02 ciprofloxacin [From CIPRO] Allergy Unknown UNKNOWN Verified 10/17/23 17:02 PEPPERS Allergy Severe HIVES Uncoded 10/17/23 17:02 Review of Systems Review of Systems: Constitutional: No Fever, No Chills ENT/Mouth: No Ear Pain, +Nasal Congestion, No Sinus Pain, No Hoarseness, + sore throat, +Rhinorrhea, No Swallowing Difficulty Cardiovascular: No Chest Pain, No SOB Respiratory: +Cough, +Sputum, No Wheezing Gastrointestinal: No Nausea, No Vomiting, No Diarrhea, No Constipation, No Abdominal pain Genitourinary: No Dysuria, No Urinary Frequency, No Hematuria Musculoskeletal: No joint pain, No Myalgias, No Joint Swelling Skin: No Skin Lesions, No rash Neuro: No Weakness Yes all other systems are reviewed and are negative Constitutional: Constitutional: Reports as per HPI Neurologic: Denies Abnormal speech present [facility] Past Medical History Attestation statement: The following information was validated with the patient. Source: old records reviewed Medical History Goiter Allergic rhinitis Impaired glucose tolerance Essential hypertension Surgical History History of tonsillectomy and adenoidectomy Family History Family History Mother Hypertension CVD (cardiovascular disease) Breast cancer Pacemaker Father Hypertension Diabetes Parkinson's disease Brother In good health Brother In good health Son In good health Son In good health Daughter In good health Family/Other Chronic mental illness Family/Other Prostate cancer Family/Other Ovarian cancer Family/Other Ovarian cancer Social History Social History Household Members: Spouse Housing: House Alcohol intake: never Patient Tobacco Use Status: Never used Tobacco e-Cigarette/Vaping Use: Never Used Second Hand Smoke Exposure: No Advance Directives: No Advance Directives Information Provided: No service: No Current occupational status: unemployed Cognitive needs: No Hearing needs: No Vision needs: No Physical Exam ED Vital Signs: Vital Signs - 24 hr 10/17/23 16:56 10/17/23 18:34 10/17/23 18:43 Temperature 98.5 F Pulse Rate 92 91 83 Respiratory Rate 18 18 18 Blood Pressure 211/103 H 210/115 H 199/98 H Pulse Oximetry 100 98 Oxygen Delivery Method Room Air Room Air BMI result Body Mass Index 29.7 Const General: cooperative, healthy appearing and no acute distress Orientation/consciousness: patient oriented x3 Limitations: no limitations HENMT Head: Yes normal to inspection and Yes atraumatic Ears: hearing grossly normal bilaterally, external ears normal, TM's normal bilaterally and mastoids normal General nose exam: Normal external nose present Face and sinus: Yes normal facial exam Mouth: Normal oral and palatal mucosa present and no drooling Throat: Yes posterior oropharynx normal, Yes tonsils normal, Yes uvula midline, No peritonsillar mass, No uvula laterally displaced and No uvular edema Eyes General: appearance normal, both eyes and all related structures EOM: EOMs intact bilaterally Neck Neck: Yes normal visual inspection and Yes no meningeal signs Resp Effort & Inspection: normal respiratory effort, Actively coughing Quality: actively coughing, no respiratory distress and no stridor Auscultation: clear to auscultation bilaterally and no wheezes Cardio Rate: regular rate Heart sounds: S1 normal heart sound present and S2 normal heart sound present Skin Rashes: no rashes Wounds: no wounds Neuro General: patient oriented x3, gait normal, tone normal, moves all extremities, no meningeal signs, no focal motor deficits and CN's II-XI intact bilaterally Cranial nerves: Yes CN's II-XII intact bilaterally Cognition (Neuro): normal cognition Speech: No Abnormal speech present Gait exam (Neuro): Normal gait present Extrem General: Yes normal to inspection Course Course Course Narrative: This is a rapid medical exam: Additional HPI, ROS, PE not included below will be deferred to primary provider. Patient is a 48-year-old female with history of HTN presenting to the emergency department with complaint of persistent cough since last night. States sputum is yellow/green. Also complaining of sore throat. Unable to sleep due to coughing. Daughter and with similar symptoms. BP 211/103 in triage, states took BP med today and it was recently increased 2 weeks ago. Plan: viral swabs -173--COVID-19 positive. Influenza and rapid strep negative >1844--blood pressure mildly improved after 2.5 mg of p.o. Amlodipine. Discussed importance of needed compliance with new medications. Discussed COVID-19 status and strict return precautions Results discussed with patient including worrisome signs and symptoms and strict return precautions, and when to return to the emergency department. They verbalized understanding and feel safe for discharge at this time. Medications Administered Discontinued Medications Generic Name Dose Route Start Last Admin Trade Name Renny PRN Reason Stop Dose Admin Amlodipine Besylate 2.5 mg 10/17/23 17:25 10/17/23 17:54 Amlodipine Besylate 2.5 Mg Tablet PO 10/17/23 17:26 2.5 mg ONCE ONE Administration Protocol Benzonatate 100 mg 10/17/23 17:25 10/17/23 17:54 Benzonatate 100 Mg Capsule PO 10/17/23 17:26 100 mg ONCE ONE Administration Hydrocodone Bit/Homatropine Methylb 5 ml 10/17/23 17:25 10/17/23 17:54 Hydrocodone/Homat 5/1.5/5 Ml 5 Ml Syrup PO 10/17/23 17:26 5 ml ONCE ONE Administration Medical Decision Making Medical Decision Making MDM Narrative: 48-year-old female with a past medical history of hypertension, goiter, allergic rhinitis, presenting to the ED complaining of rhinorrhea, intermittent productive cough, chest discomfort when coughing, mild SOB, and sore throat since yesterday. On exam hypertensive, persistently/actively coughing during evaluation, lungs CTA, talking complete sentences, no respiratory distress, oropharynx WNL, uvula midline. Concern for viral illness vs bronchitis. Lower suspicion for pneumonia with symptoms starting yesterday. 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 low suspicion for hypertensive urgency/emergency, elevated blood pressure likely contributory to active coughing/OTC cough medication & (new med noncompliance) Plan: Viral testing, rapid strep, Hycodan, Tessalon Perle, PO Amlodipine (pts newly rx dose) Please refer to course for remaining clinical decision making, interpretation of labs/imaging results, and discussions with consultants and/or family members. Differential Diagnosis Differential Diagnoses: The differential diagnosis associated with the presentation includes As above Admission/Observation Consideration of admission/observation: Escalation of care including admission/observation considered Lab Data MDM Lab Attestation statement: I reviewed the patient's lab results. Labs: Lab Results 10/17/23 Range/Units 17:04 COVID-19 (OMAR) Positive A (Negative) COVID-19 Clin Com See Note Influenza Type A (KAM) Negative (Negative) Influenza Type B (KAM) Negative (Negative) Influenza A & B Note See Note S. pyogenes GrpA KAM Negative (Negative) Radiology Impression Discussion of test interpretation with radiology: I have reviewed the radiologist's reading. External Record Review External record reviewed: Inpatient record, Office record, Outpatient record, Prior outpatient labs, Prior outpatient radiology, Primary care record and Outside ED record Tests considered The following testing was considered but not selected: CXR > not needed at this time Chronic Conditions Patient?s care impacted by: Hypertension Discharge Plan Discharge Clinical Impression: COVID-19, HTN (hypertension) Patient Disposition: Home, Self-Care Instructions: Hypertension (ED), COVID-19 (Coronavirus Disease 2019) (ED) Additional Instructions: YOU HAVE COVID-19 Hycodan & Tessalon Perles are for cough, please take as needed IT IS 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 At this time you will be okay for discharge. Please self isolate for 5 days. Do not expose yourself to others. You may not go to work or school. Please continue to follow cold instructions and wash your hands frequently. You may take Tylenol / Motrin as directed on the bottle for pain or fever. If you have constant or persistent shortness of breath, fever unresolved with medications, chest pain, or your unable to eat or drink please return to the ED CDC Guidelines for home isolation: - Stay away from others - WEAR A MASK if you are sick AND STAY HOME - Cover your mouth and nose with a tissue when you cough or sneeze. Dispose of tissues in a lined trash can and wash your hands immediately with soap and water for at least 20 seconds. If soap and water are not available, clean hands with alcohol-based hand manufacturing sales representative that contains at least 60% alcohol. - Clean your hands often with soap and water for at least 20 seconds - Avoid touching your eyes, nose and mouth with unwashed hands - Do not share dishes, drinking glasses, cups, eating utensils, towels, or bedding with other people in your home. After using these items, wash them thoroughly with soap and water or put in the feather trimmer. - Clean high-touch surfaces in your isolation area ( sick room and bathroom) every day; let a caregiver clean and disinfect high-touch surfaces in other areas of the home. Clean the area or item with soap and water or another detergent if it is dirty. Then, use a household disinfectant. - Limit contact with pets and animals: If you must care for a pet, wash your hands before and after interacting with them) TIENES COVID-19 Hycodan y Tessalon Perles para la tos, t?melos seg?n sea necesario ES MUY IMPORTANTE QUE RECOJA TORRES NUEVO MEDICAMENTO PARA LA PRESI?N ARTERIAL EN LA FARMACIA Y COMIENCE A TOMARLO. En elsy momento usted estar? ivan para recibir el octaviano. Por favor, a?slese ruiz 5 d?as. No te expongas a los dem?s. No puede ir al trabajo ni a la escuela. Contin?e siguiendo las instrucciones fr?as y l?vese las rojas con frecuencia. Puede fortunato Tylenol/Motrin cammie se indica en el frasco para el dolor o la fiebre. Si tiene dificultad para respirar dayanna o persistente, fiebre que no se resuelve con medicamentos, dolor en el pecho o no puede comer ni beber, regrese al servicio de urgencias. Pautas de los CDC para el aislamiento en el hogar: - Mant?ngase alejado de los dem?s - [place] si est?s enfermo Y QU?DATE EN CASA - Cubrirse la boca y la nariz con un pa?uelo desechable al toser o estornudar. Deseche los pa?uelos en un bote de basura forrado y l?vese las rojas inmediatamente con agua y jab?n ruiz al menos 20 segundos. Si no hay agua y jab?n disponibles, l?vese las rojas con un desinfectante para rojas a base de alcohol que contenga al menos un 60 % de alcohol. - L?vate las rojas frecuentemente con agua y jab?n ruiz al menos 20 segundos. - Evite tocarse los ojos, la nariz y la boca con las rojas sucias. - No comparta platos, vasos, tazas, utensilios para comer, toallas o ropa de cama con otras personas en torres hogar. Despu?s de usar estos art?culos, l?velos minuciosamente con agua y jab?n o p?ngalos en el lavavajillas. - Limpiar las superficies de alto contacto en torres ?percy de aislamiento ( cuarto de enfermo y ba?o) todos los d?as; Deje que un cuidador limpie y desinfecte las superficies de alto contacto en otras ?reas del hogar. Limpie el ?percy o art?culo con agua y jab?n u otro detergente si est? sucio. Luego, use un desinfectante dom?stico. - Limitar el contacto con mascotas y animales: Si debes cuidar ronit mascota, l?vate las rojas antes y despu?s de interactuar con liliana) Prescriptions: New hydrocodone-homatropine [Hycodan] 5-1.5 mg/5 mL (5 mL) syrup 5 ml PO Q4-6H PRN (Reason: cough) Qty: 60 0RF Rx Instructions: Partial Fill upon patient request. benzonatate 100 mg capsule 100 mg PO TID PRN (Reason: cough) Qty: 14 0RF albuterol sulfate 90 mcg/actuation HFA aerosol inhaler 2 puff inhalation Q4-6H PRN (Reason: shortness of breath or wheezing) Qty: 6.7 0RF No Action ferrous sulfate 325 mg (65 mg iron) tablet 325 mg PO BID Qty: 60 6RF lisinopril 40 mg tablet 40 mg PO DAILY 90 Days Qty: 90 1RF loratadine 10 mg tablet 10 mg PO DAILY 30 Days Qty: 30 6RF acetaminophen [Tylenol Extra Strength] 500 mg tablet 500 mg PO Q6H PRN (Reason: fever or pain) Qty: 14 0RF naproxen 500 mg tablet 500 mg PO BID PRN (Reason: pain) 10 Days Qty: 20 0RF cyclobenzaprine 5 mg tablet 5 mg PO Q8H PRN (Reason: pain (scale score 7-10)) 5 Days Qty: 14 0RF amlodipine 2.5 mg tablet 2.5 mg PO DAILY 90 Days Qty: 90 0RF ascorbic acid (vitamin C) 250 mg tablet 250 mg PO DAILY Qty: 60 0RF cholecalciferol (vitamin D3) 50 mcg (2,000 unit) tablet 50 mcg PO DAILY Qty: 90 0RF Referrals: Madhavi Isaacs MD [Primary Care Provider] - 1 week Print Language: Vincentian
[2023-10-17 17:20] LABS: IDNOW Serial# 08D9AD1C; Strep A Nucleic Acid Negative (Negative)
[2023-10-17 17:21] LABS: COVID-19 Test Positive (Negative); IDNOW Serial# 9DB6401D
[2023-10-17 17:27] LABS: IDNOW Serial# 152EDE1D; Influenza A Negative (Negative); Influenza B2 Negative (Negative)
[2023-10-17] MEDS: HYDROcodone/Homat 5/1.5/5 ML 5 ML SYRUP PO (17:54)
[2023-10-17] MEDS: Benzonatate 100 MG CAPSULE PO (17:54)
[2023-10-17] MEDS: amLODIPine Besylate 2.5 MG TABLET PO (17:54)
[2023-10-17 18:34] VITALS: BP 210/115; PULSE 91; RESP 18; O2SAT 98
[2023-10-17 18:43] VITALS: BP 199/98; PULSE 83; RESP 18
== END 2023-10-17 19:06 | disposition home or self-care (01) ==
PROVIDERS: Registered Nurse Emergency; Emergency Provider Emergency Medicine Emergency Medical Services; PCP Internal Medicine
DX: U07.1 COVID-19 (principal)
CPT/HCPCS: 87502; 87635; 87651; 99283

== ENCOUNTER 2023-10-29 12:40 | Outpatient (REF) | payer OTHER, SELFPAY ==
--- NOTE | ~2023-10-29 | US_ITS ---
EXAMINATION: US PELVIS COMPLETE CLINICAL INFORMATION: Ovarian cysts; the last menstrual period is not specified. COMPARISON: Pelvic ultrasound dated 07/27/2023. TECHNIQUE: Transabdominal imaging was performed. FINDINGS: The uterus is of normal size and echogenicity, measuring 12.0 x 8.3 x 9.1 cm. The uterus is anteverted. The endometrial stripe is poorly visualized due to uterine fibroid disease. A 1.2 cm complex nabothian cyst is seen within the cervix. FIBROIDS: There are 5 fibroids seen. 1. Location: Anterior body, submucosal. Size: 0.9 x 1.0 x 0.9 cm. Prior: Not seen. Fibroid characteristics: Heterogeneous echotexture. 2. Location: Leftward body, myometrial. Size: 1.6 x 1.3 x 1.2 cm. Prior: Not seen. Fibroid characteristics: Heterogeneous echotexture. 3. Location: Leftward fundus, myometrial. Size: 3.8 x 4.0 x 4.2 cm. Prior: 4.5 x 4.1 x 4.0 cm. Fibroid characteristics: Heterogeneous echotexture, with shadowing calcifications. 4. Location: Posterior body subserosal. Size: 1.8 x 1.5 x 1.5 cm. Prior: Not seen. Fibroid characteristics: Heterogeneous echotexture. 5. Location: Posterior upper body, myometrial. Size: 1.2 x 0.6 x 1.1 cm. Prior: Not seen. Fibroid characteristics: Allergies echotexture. Both ovaries are of normal size and echogenicity. The right ovary measures 2.6 x 1.6 x 1.5 cm for a volume of 3.3 mL. The left ovary measures 4.6 x 3.8 x 3.7 cm for a volume of 33.9 mL. A 3.7 x 2.8 x 3.0 cm benign, simple left ovarian cyst is seen, which requires no imaging follow-up. There is no pelvic free fluid. No adnexal masses seen. US/US pelvic and transvaginal IMPRESSION: 1. A diminished, now 3.7 cm benign, simple left ovarian cyst is seen, which requires no further imaging follow-up. 2. There is uterine fibroid disease. 3. A complex Nabothian cyst is seen, as detailed.
== END 2023-10-29 12:41 | disposition home or self-care (01) ==
LOC: HO.US 12:40
PROVIDERS: PCP Internal Medicine; Visit Provider Obstetrics & Gynecology
DX: N83.299 Other ovarian cyst, unspecified side (principal)
CPT/HCPCS: 76830; 76856

== ENCOUNTER 2023-11-20 15:06 | Outpatient (REF) | payer OTHER, SELFPAY | END 2023-11-20 15:07 | disposition home or self-care (01) | LOC: HO.MRI 15:06 | PROVIDERS: PCP Internal Medicine; Visit Provider Obstetrics & Gynecology | DX: Z13.89 Encounter for screening for other disorder (principal) ==

== ENCOUNTER 2023-11-23 14:55 | Outpatient (AMB) | payer OTHER, SELFPAY ==
[2023-11-23 15:06] VITALS: BP 178/96; BMI 29.7
--- NOTE | 2023-11-23 15:06 | A.OFFVIS_ITS ---
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 The following workup was done.: H&H= 9.8/32.4 TSH, hCG, prolactin, GC and chlamydia were negative. FSH/LH premenopausal range Endometrial biopsy pathology showed proliferative endometrium with no evidence of hyperplasia and/or malignancy. Co testing was done was negative. Mammogram was BI-RADS 3 in 07/06, the recommendation was to repeat in 6 months. Pelvic ultrasound showed the following: The uterus is of normal size and echogenicity, measuring 12.0 x 8.3 x 9.1 cm. The uterus is anteverted. The en dometrial stripe is poorly visualized due to uterine fibroid disease. A 1.2 cm complex nabothian cyst is seen within the cervix. FIBROIDS: There are 5 fibroids seen. 1. Location: Anterior body, submucosal. Size: 0.9 x 1.0 x 0.9 cm. Prior: Not seen. Fibroid characteristics: Heterogeneous echotexture. 2. Location: Leftward body, myometrial. Size: 1.6 x 1.3 x 1.2 cm. Prior: Not seen. Fibroid characteristics: Heterogeneous echotexture. 3. Location: Leftward fundus, myometrial. Size: 3.8 x 4.0 x 4.2 cm. Prior: 4.5 x 4.1 x 4.0 cm. Fibroid characteristics: Heterogeneous echotexture, with shadowing calcifications. 4. Location: Posterior body subserosal. Size: 1.8 x 1.5 x 1.5 cm. Prior: Not seen. Fibroid characteristics: Heterogeneous echotexture. 5. Location: Posterior upper body, myometrial. Size: 1.2 x 0.6 x 1.1 cm. Prior: Not seen. Fibroid characteristics: Allergies echotexture. Both ovaries are of normal size and echogenicity. The right ovary measures 2.6 x 1.6 x 1.5 cm for a volume of 3.3 mL. The left ovary measures 4.6 x 3.8 x 3.7 cm for a volume of 33.9 mL. A 3.7 x 2.8 x 3.0 cm benign, simple left ovarian cyst is seen, which requires no imaging follow-up. There is no pelvic free fluid. No adnexal masses seen. The patient has been on iron sulfate 325 mg p.o. q.d. [facility] Medical History (Updated 11/23/23 @ 15:29 by Aime Tomlinson MD) At high risk for breast cancer Goiter Allergic rhinitis Impaired glucose tolerance Essential hypertension Surgical History History of tonsillectomy and adenoidectomy Family History Mother Hypertension CVD (cardiovascular disease) Breast cancer Pacemaker Father Hypertension Diabetes Parkinson's disease Brother In good health Brother In good health Son In good health Son In good health Daughter In good health Family/Other Chronic mental illness Family/Other Prostate cancer Family/Other Ovarian cancer Family/Other Ovarian cancer Social History Household Members: Spouse Housing: House Alcohol intake: never Patient Tobacco Use Status: Never used Tobacco e-Cigarette/Vaping Use: Never Used Second Hand Smoke Exposure: No service: No Current occupational status: unemployed Cognitive needs: No Hearing needs: No Vision needs: No Female Reproductive History Menstrual Age of Menarche: 9 control method: none Review of Systems Const All systems reviewed & are unremarkable except as noted in HPI and below Reports as per HPI and Reports no additional complaints GI Reports no additional complaints Reports no additional complaints Physical Exam Vital Signs: BMI result Body Mass Index 29.7 Assessment & Plan Assessment & Plan (1) Abnormal uterine bleeding (AUB): Comment: With myomas Code(s): N93.9 - Abnormal uterine and vaginal bleeding, unspecified Plan: Discussed with the patient the results of the ultrasound and the size of the myomas. Discussed with the patient risk of myosarcoma and symptoms that are caused by myomas including but not limited to pelvic pain, pressure symptoms, abnormal uterine bleeding. In addition discussed with the patient options of treatment for myomas including: Serial ultrasounds periodically to follow-up on the size of the myoma while targeting the treatment against fibroids related symptoms ( control pills, Mirena IUD, progesterone treatment, GnRH agonist/antagonist, uterine artery embolization or endometrial ablation) versus surgical treatment including hysterectomy. All pros and cons, risks and benefits of all options were discussed with the patient. The patient decided to proceed with surgical management. Discussed with the patient the different types of hysterectomies including, vaginal, laparoscopic assisted vaginal, robotic assisted laparoscopic,& abdominal . All pros, cons, r/b of each approach were discussed the patient including evidence that morbidity is less and recovery is shorter with minimally invasive approaches to hysterectomy. Discussed with the patient the lack of availability of the robot DaVinci robot and/or minimally invasive warp worker specialist at [facility]. The patient requested to be referred to a tertiary care center. Will refer to [facility] minimally invasive warp worker. Instructed the patient to call our office back in case a referral appointment is not scheduled, missed or canceled so that we will assist on rescheduling another appointment, the patient verbalized understanding agreed with the plan. Coding Level of Care Code Est Pt Level 3 (27545) Diagnoses Abnormal uterine bleeding (AUB) N93.9
== END 2023-11-23 15:53 | disposition home or self-care (01) ==
LOC: HO.HWS 14:55
PROVIDERS: PCP Internal Medicine; Visit Provider Obstetrics & Gynecology
DX: N93.9 Abnormal uterine and vaginal bleeding, unspecified (principal)
CPT/HCPCS: 99213

== ENCOUNTER → 2023-11-23 14:55 | Outpatient (BNVA) | payer OTHER, SELFPAY | PROVIDERS: PCP Internal Medicine; Visit Provider Obstetrics & Gynecology | DX: N93.9 Abnormal uterine and vaginal bleeding, unspecified (principal) | CPT/HCPCS: 99212 ==

== ENCOUNTER 2023-12-07 15:55 | Emergency (ER) | payer OTHER, SELFPAY ==
--- NOTE | ~2023-12-07 | XR_ITS ---
EXAMINATION: XR CHEST 2 VIEW CLINICAL INFORMATION: Cough COMPARISON: 08/04/2023 TECHNIQUE: PA and lateral views of the chest obtained. FINDINGS: The lungs are clear. There are no pleural effusions. The cardiomediastinal silhouette is normal. XR/XR chest 2V IMPRESSION: No acute cardiopulmonary disease.
[2023-12-07 17:03] VITALS: BP 183/71; PULSE 74; RESP 18; TEMP 36.8; O2SAT 100; BMI 29.0
[2023-12-07 17:38] LABS: IDNOW Serial# 08D9AD1C; Strep A Nucleic Acid Negative (Negative)
--- NOTE | 2023-12-07 17:50 | ED_ITS ---
HPI - General Adult General Chief complaint: Upper Respiratory Symptoms Stated complaint: left ear pain ,headache Time Seen by Provider: 12/07/23 18:35 Source: patient Mode of arrival: ambulatory History of Present Illness HPI narrative: 48-year-old female with positive sick contacts and states she has had a frontal headache in addition to left ear pain as well as throat pain. Related Data Previous Rx's Medication Instructions Recorded ferrous sulfate 325 mg (65 mg 325 mg PO BID #60 tabs 07/29/23 iron) tablet lisinopril 40 mg tablet 40 mg PO DAILY 90 days #90 tabs 07/29/23 loratadine 10 mg tablet 10 mg PO DAILY 30 days #30 tabs 07/29/23 acetaminophen 500 mg tablet 500 mg PO Q6H PRN fever or pain 08/25/23 (Tylenol Extra Strength) #14 tabs cyclobenzaprine 5 mg tablet 5 mg PO Q8H PRN pain (scale score 08/25/23 7-10) 5 days #14 tabs naproxen 500 mg tablet 500 mg PO BID PRN pain 10 days #20 08/25/23 tabs amlodipine 2.5 mg tablet 2.5 mg PO DAILY 90 days #90 tabs 09/23/23 ascorbic acid (vitamin C) 250 mg 250 mg PO DAILY #60 tabs 09/23/23 tablet cholecalciferol (vitamin D3) 50 50 mcg PO DAILY #90 tabs 09/23/23 mcg (2,000 unit) tablet albuterol sulfate 90 mcg/actuation 2 puff inhalation Q4-6H PRN 10/17/23 aerosol inhaler shortness of breath or wheezing #6.7 grams hydrocodone-homatropine 5 mg-1.5 5 ml PO Q4-6H PRN cough #60 mL 10/17/23 mg/5 mL (5 mL) oral syrup (Hycodan) nirmatrelvir 300 mg (150 mg 3 ea PO PER PKG DIR 5 days #30 ea 10/19/23 x2)-ritonavir 100 mg tablet,dose pack (Paxlovid) benzonatate 100 mg capsule 100 mg PO TID PRN cough #14 caps 10/30/23 Allergies Allergy/AdvReac Type Severity Reaction Status Date / Time gluten [GLUTEN] Allergy Intermediate HIVES Verified 11/23/23 15:07 ciprofloxacin [From CIPRO] Allergy Unknown UNKNOWN Verified 11/23/23 15:07 PEPPERS Allergy Severe HIVES Uncoded 11/23/23 15:07 Review of Systems Review of Systems: Pertinent positives and negatives as stated in [facility] Past Medical History Source: nursing notes reviewed Medical History At high risk for breast cancer Goiter Allergic rhinitis Impaired glucose tolerance Essential hypertension Surgical History History of tonsillectomy and adenoidectomy Family History Family History Mother Hypertension CVD (cardiovascular disease) Breast cancer Pacemaker Father Hypertension Diabetes Parkinson's disease Brother In good health Brother In good health Son In good health Son In good health Daughter In good health Family/Other Chronic mental illness Family/Other Prostate cancer Family/Other Ovarian cancer Family/Other Ovarian cancer Social History Social History Household Members: Spouse Housing: House Alcohol intake: never Patient Tobacco Use Status: Never used Tobacco e-Cigarette/Vaping Use: Never Used Second Hand Smoke Exposure: No Advance Directives: No Advance Directives Information Provided: Yes service: No Current occupational status: unemployed Cognitive needs: No Hearing needs: No Vision needs: No Physical Exam ED Vital Signs: Vital Signs - 24 hr 12/07/23 17:03 Temperature 98.2 F Pulse Rate 74 Respiratory Rate 18 Blood Pressure 183/71 H Pulse Oximetry 100 Oxygen Delivery Method Room Air BMI result Body Mass Index 29.0 VITAL SIGNS: Reviewed. GENERAL: Well developed, well nourished, in no acute distress. HEAD: Normocephalic/atraumatic EYES: PERRLA, EOMI EARS: RIGHT- Ext canals without abnormality, TMs non-bulging and non- erythematous, LEFT- Ext canals without abnormality, TMs bulging but non- erythematous NOSE: Nares patent bilateral OROPHARYNX: no oral lesions noted, posterior pharynx clear and non-erythematous without noted tonsillar enlargement/erythema/exudates NECK: Supple, no adenopathy LUNGS: Normal breath sounds. No adventitious sounds or accessory muscle use. SpO2<100> CARDIOVASCULAR: Regular rate and rhythm without noted murmurs ABDOMEN: Soft, non-tender, non-distended with bowel sounds. MUSCULOSKELETAL: No tenderness, deformities, or effusions noted on gross inspection. EXTREMITIES: No cyanosis, clubbing or edema. SKIN: Inspection of the skin reveals no rashes NEUROLOGIC: Alert and oriented x 4. Strength and sensation to light touch were grossly intact x 4. Course Course Course Narrative: RME performed by Connie Hayden PA-C. Patient is a 48 year old assigned female at presenting to the emergency department with left ear pain, headache, and SOB. Detailed physical exam and review of systems are deferred to the eyeglass fitter. Imaging and swabs ordered. Patient placed back in the waiting room pending room availability and results. Medical Decision Making Medical Decision Making MDM Narrative: 48-year-old female with history and clinical presentation, DDX: Viral illness, strep throat, pneumonia felt to be less likely. I reviewed rapid strep testing which is negative, chest x-ray not significant for infiltrate or venous congestion. Patient provided with combination analgesics as well as Cepacol for throat relief and otherwise discharged in stable condition. Differential Diagnosis Differential Diagnoses: The differential diagnosis associated with the presentation includes Please see the discussion above Admission/Observation Consideration of admission/observation: Escalation of care including admission/observation considered Please see the discussion above Lab Data [facility] Lab Attestation statement: I reviewed the patient's lab results. Please see the discussion above Labs: Lab Results 12/07/23 Range/Units 17:19 S. pyogenes GrpA KAM Negative (Negative) Radiology Impression Discussion of test interpretation with radiology: I have reviewed the radiologist's reading. Radiologist Impression: Please see the discussion above External Record Review External record reviewed: Outpatient record and Prior outpatient labs Chronic Conditions Patient?s care impacted by: Hypertension Critical Care Time Critical Care Time Critical Care Time: Yes Total Critical Care Time: 30 Attestation: I personally attest to this time spent taking care of the patient. Discharge Plan Discharge Clinical Impression: Viral syndrome, Viral pharyngitis, Viral sinusitis Instructions: Viral Syndrome (ED) Additional Instructions: Recommend [id number] Tylenol, ibuprofen, and Cepacol for your sore throat. Drink plenty of water and follow-up with your primary care doctor. Prescriptions: No Action ferrous sulfate 325 mg (65 mg iron) tablet 325 mg PO BID Qty: 60 6RF lisinopril 40 mg tablet 40 mg PO DAILY 90 Days Qty: 90 1RF loratadine 10 mg tablet 10 mg PO DAILY 30 Days Qty: 30 6RF Paxlovid 300 mg (150 mg x 2)-100 mg tablets,dose pack 3 ea PO PER PKG DIR 5 Days Qty: 30 0RF benzonatate 100 mg capsule 100 mg PO TID PRN (Reason: cough) Qty: 14 0RF acetaminophen [Tylenol Extra Strength] 500 mg tablet 500 mg PO Q6H PRN (Reason: fever or pain) Qty: 14 0RF naproxen 500 mg tablet 500 mg PO BID PRN (Reason: pain) 10 Days Qty: 20 0RF cyclobenzaprine 5 mg tablet 5 mg PO Q8H PRN (Reason: pain (scale score 7-10)) 5 Days Qty: 14 0RF hydrocodone-homatropine [Hycodan] 5-1.5 mg/5 mL (5 mL) syrup 5 ml PO Q4-6H PRN (Reason: cough) Qty: 60 0RF Rx Instructions: Partial Fill upon patient request. albuterol sulfate 90 mcg/actuation HFA aerosol inhaler 2 puff inhalation Q4-6H PRN (Reason: shortness of breath or wheezing) Qty: 6.7 0RF amlodipine 2.5 mg tablet 2.5 mg PO DAILY 90 Days Qty: 90 0RF ascorbic acid (vitamin C) 250 mg tablet 250 mg PO DAILY Qty: 60 0RF cholecalciferol (vitamin D3) 50 mcg (2,000 unit) tablet 50 mcg PO DAILY Qty: 90 0RF Referrals: Madhavi Isaacs MD [Primary Care Provider] - Stand Alone Forms: Work/School Release Print Language: Bahraini
[2023-12-07] MEDS: Ibuprofen 400 MG TABLET PO (19:05)
[2023-12-07] MEDS: Acetaminophen 325 MG TABLET 975 MG PO (19:05)
[2023-12-07] MEDS: Throat Lozenge, Medicated LOZENGE 1 LOZENGE MUCOUS MEM (19:06)
[2023-12-07 19:24] VITALS: BP 168/77; PULSE 66; RESP 16; TEMP 36.3; O2SAT 100
== END 2023-12-07 19:25 | disposition home or self-care (01) ==
PROVIDERS: Emergency Provider Student in an Organized Health Care Education/Training Program; PCP Internal Medicine
DX: B34.9 Viral infection, unspecified (principal); J02.8 Acute pharyngitis due to other specified organisms; J32.8 Other chronic sinusitis; I10 Essential (primary) hypertension
CPT/HCPCS: 71046; 87651; 99283

== ENCOUNTER 2023-12-08 18:59 | Emergency (ER) | payer OTHER, SELFPAY ==
[2023-12-08 19:26] VITALS: BP 166/94; PULSE 75; RESP 20; TEMP 36.9; O2SAT 99; BMI 29.4
--- NOTE | 2023-12-08 19:34 | ED.GENADULT ---
HPI - General Adult General Chief complaint: General Medical Stated complaint: ? allergic Rx History of Present Illness HPI narrative: left without being seen Related Data Previous Rx's Medication Instructions Recorded ferrous sulfate 325 mg (65 mg 325 mg PO BID #60 tabs 07/29/23 iron) tablet lisinopril 40 mg tablet 40 mg PO DAILY 90 days #90 tabs 07/29/23 loratadine 10 mg tablet 10 mg PO DAILY 30 days #30 tabs 07/29/23 acetaminophen 500 mg tablet 500 mg PO Q6H PRN fever or pain 08/25/23 (Tylenol Extra Strength) #14 tabs cyclobenzaprine 5 mg tablet 5 mg PO Q8H PRN pain (scale score 08/25/23 7-10) 5 days #14 tabs naproxen 500 mg tablet 500 mg PO BID PRN pain 10 days #20 08/25/23 tabs amlodipine 2.5 mg tablet 2.5 mg PO DAILY 90 days #90 tabs 09/23/23 ascorbic acid (vitamin C) 250 mg 250 mg PO DAILY #60 tabs 09/23/23 tablet cholecalciferol (vitamin D3) 50 50 mcg PO DAILY #90 tabs 09/23/23 mcg (2,000 unit) tablet albuterol sulfate 90 mcg/actuation 2 puff inhalation Q4-6H PRN 10/17/23 aerosol inhaler shortness of breath or wheezing #6.7 grams hydrocodone-homatropine 5 mg-1.5 5 ml PO Q4-6H PRN cough #60 mL 10/17/23 mg/5 mL (5 mL) oral syrup (Hycodan) nirmatrelvir 300 mg (150 mg 3 ea PO PER PKG DIR 5 days #30 ea 10/19/23 x2)-ritonavir 100 mg tablet,dose pack (Paxlovid) benzonatate 100 mg capsule 100 mg PO TID PRN cough #14 caps 10/30/23 Allergies Allergy/AdvReac Type Severity Reaction Status Date / Time gluten [GLUTEN] Allergy Intermediate HIVES Verified 12/08/23 19:26 ciprofloxacin [From CIPRO] Allergy Unknown UNKNOWN Verified 12/08/23 19:26 PEPPERS Allergy Severe HIVES Uncoded 11/23/23 15:07 PMFSH Past Medical History Medical History At high risk for breast cancer Goiter Allergic rhinitis Impaired glucose tolerance Essential hypertension Surgical History History of tonsillectomy and adenoidectomy Family History Family History Mother Hypertension CVD (cardiovascular disease) Breast cancer Pacemaker Father Hypertension Diabetes Parkinson's disease Brother In good health Brother In good health Son In good health Son In good health Daughter In good health Family/Other Chronic mental illness Family/Other Prostate cancer Family/Other Ovarian cancer Family/Other Ovarian cancer Social History Social History Household Members: Spouse Housing: House Alcohol intake: never Patient Tobacco Use Status: Never used Tobacco e-Cigarette/Vaping Use: Never Used Second Hand Smoke Exposure: No Advance Directives: No Advance Directives Information Provided: No service: No Current occupational status: unemployed Cognitive needs: No Hearing needs: No Vision needs: No Physical Exam ED Vital Signs: Vital Signs - 24 hr 12/08/23 19:26 Temperature 98.5 F Pulse Rate 75 Respiratory Rate 20 Blood Pressure 166/94 H Pulse Oximetry 99 Oxygen Delivery Method Room Air BMI result Body Mass Index 29.4 Course Course Course Narrative: RME: 48 yold female presents to the ED for itchy skin and hives on neck and chest. Positive hives on exam. no signs of angioedema or anyphylaxis. Vital signs stable. benadryl, prednisone, adn pepcid ordered. not in respiratory distress. Medications Administered Discontinued Medications Generic Name Dose Route Start Last Admin Trade Name Freq PRN Reason Stop Dose Admin Diphenhydramine HCl 50 mg 12/08/23 19:32 12/08/23 19:38 Diphenhydramine Hcl 25 Mg Capsule PO 12/08/23 19:33 50 mg ONCE ONE Administration Famotidine 20 mg 12/08/23 19:32 12/08/23 19:38 Famotidine 20 Mg Tablet PO 12/08/23 19:33 20 mg ONCE ONE Administration Prednisone 60 mg 12/08/23 19:32 12/08/23 19:38 Prednisone 20 Mg Tablet PO 12/08/23 19:33 60 mg ONCE ONE Administration Discharge Plan Discharge Clinical Impression: Allergic reaction Patient Disposition: Left W/O Completing Treatment Prescriptions: No Action ferrous sulfate 325 mg (65 mg iron) tablet 325 mg PO BID Qty: 60 6RF lisinopril 40 mg tablet 40 mg PO DAILY 90 Days Qty: 90 1RF loratadine 10 mg tablet 10 mg PO DAILY 30 Days Qty: 30 6RF Paxlovid 300 mg (150 mg x 2)-100 mg tablets,dose pack 3 ea PO PER PKG DIR 5 Days Qty: 30 0RF benzonatate 100 mg capsule 100 mg PO TID PRN (Reason: cough) Qty: 14 0RF acetaminophen [Tylenol Extra Strength] 500 mg tablet 500 mg PO Q6H PRN (Reason: fever or pain) Qty: 14 0RF naproxen 500 mg tablet 500 mg PO BID PRN (Reason: pain) 10 Days Qty: 20 0RF cyclobenzaprine 5 mg tablet 5 mg PO Q8H PRN (Reason: pain (scale score 7-10)) 5 Days Qty: 14 0RF hydrocodone-homatropine [Hycodan] 5-1.5 mg/5 mL (5 mL) syrup 5 ml PO Q4-6H PRN (Reason: cough) Qty: 60 0RF Rx Instructions: Partial Fill upon patient request. albuterol sulfate 90 mcg/actuation HFA aerosol inhaler 2 puff inhalation Q4-6H PRN (Reason: shortness of breath or wheezing) Qty: 6.7 0RF amlodipine 2.5 mg tablet 2.5 mg PO DAILY 90 Days Qty: 90 0RF ascorbic acid (vitamin C) 250 mg tablet 250 mg PO DAILY Qty: 60 0RF cholecalciferol (vitamin D3) 50 mcg (2,000 unit) tablet 50 mcg PO DAILY Qty: 90 0RF Discharge Date/Time: 12/09/23 00:43
[2023-12-08] MEDS: Famotidine 20 MG TABLET PO (19:38)
[2023-12-08] MEDS: diphenhydrAMINE HCL 25 MG CAPSULE 50 MG PO (19:38)
[2023-12-08] MEDS: predniSONE 20 MG TABLET 60 MG PO (19:38)
== END 2023-12-09 00:43 | disposition left against medical advice (07) ==
LOC: HO.ED 12-09 00:42
PROVIDERS: Emergency Provider Emergency Medicine
DX: T78.40XA Allergy, unspecified, initial encounter (principal); X58.XXXA Exposure to other specified factors, initial encounter; L50.9 Urticaria, unspecified
CPT/HCPCS: 99281; 99283

== ENCOUNTER 2023-12-16 14:04 | Outpatient (AMB) | payer OTHER, SELFPAY ==
[2023-12-16 14:05] VITALS: BP 180/90; PULSE 78; TEMP 36.6; O2SAT 97
--- NOTE | 2023-12-16 14:05 | AM.OFFWIN_ITS ---
Intake Vital Signs 12/16/23 14:05 Height 5 ft 10 in BP 180/90 H Blood Pressure Location Lt brachial Position Sitting Pulse 78 Pulse Source Pulse Oximeter Temp 97.8 F Temp Source Oral Pulse Oximetry (%) 97 Intake Visit Reasons: EP lft ear concerns seen at ED Intake Note: pt is here for left ear concern, was seen in ED last week for infection but now her ear is bothering her Patient Tobacco Use Status: Never used Tobacco Allergies gluten [GLUTEN] Allergy (Intermediate, Verified 12/16/23 14:06) HIVES ciprofloxacin [From CIPRO] Allergy (Unknown, Verified 12/16/23 14:06) UNKNOWN PEPPERS Allergy (Severe, Uncoded 11/23/23 15:07) HIVES Do you need a note to return to daycare/school/sports/work: Yes HPI HPI Comments History of Present Illness Details 48 y/o female patient who presents to [facility] in clinic with c/o left ear pain since last night. Reports hearing Buzzing sound left ear and pain. Rates the pain at 10/10 on scale. [facility] Medical History At high risk for breast cancer Goiter Allergic rhinitis Impaired glucose tolerance Essential hypertension Surgical History History of tonsillectomy and adenoidectomy Family History Mother Hypertension CVD (cardiovascular disease) Breast cancer Pacemaker Father Hypertension Diabetes Parkinson's disease Brother In good health Brother In good health Son In good health Son In good health Daughter In good health Family/Other Chronic mental illness Family/Other Prostate cancer Family/Other Ovarian cancer Family/Other Ovarian cancer Social History Household Members: Spouse Housing: House Alcohol intake: never Patient Tobacco Use Status: Never used Tobacco e-Cigarette/Vaping Use: Never Used Second Hand Smoke Exposure: No service: No Current occupational status: unemployed Cognitive needs: No Hearing needs: No Vision needs: No Female Reproductive History Menstrual Age of Menarche: 9 Review of Systems Const All systems reviewed & are unremarkable except as noted in HPI and below Physical Exam Vital Signs: Last Vital Signs Temp 97.8 F 12/16/23 14:05 Pulse 78 12/16/23 14:05 BP 180/90 H 12/16/23 14:05 Pulse Ox 97 12/16/23 14:05 Const Orientation/consciousness: patient oriented x3 HEENT Head: Yes normocephalic Ears: external ears normal, TM normal on the right and TM abnormal bulging on the left, erythematous on the left and diffuse, with fluid behind the TM on the left and retracted on the left; not bullous, not with effusion and not perforated General nose exam: Normal nasal mucous membranes and turbinates present and No nasal discharge present Face and sinus: Yes sinuses nontender Mouth: moist mucous membranes Throat: Yes posterior oropharynx normal Neuro General: patient oriented x3, gait normal and moves all extremities Psych Speech and movement: Normal speech and movement present Assessment & Plan Assessment & Plan (1) Otitis media: Code(s): H66.90 - Otitis media, unspecified, unspecified ear Qualifiers: Chronicity: acute Laterality: left Otitis media type: suppurative Recurrence: non-recurrent Spontaneous tympanic membrane rupture: without spontaneous rupture Qualified Code(s): H66.002 - Acute suppurative otitis media without spontaneous rupture of ear drum, left ear Plan: - Otitis Media, will Tx with Augmentin. - Acetaminophen for pain relief Medications: New amoxicillin-pot clavulanate 875-125 mg 1 tab PO BID 10 days 20 tabs 0RF H66.002 - Acute suppurative otitis media without spontaneous rupture of ear drum, left ear Changed From acetaminophen (Tylenol Extra Strength) 500 mg PO Q6H PRN 14 tabs 0RF fever or pain H66.002 - Acute suppurative otitis media without spontaneous rupture of ear drum, left ear To acetaminophen (Tylenol Extra Strength) 1,000 mg (2 x 500 mg) PO Q6H PRN 14 tabs 0RF pain H66.002 - Acute suppurative otitis media without spontaneous rupture of ear drum, left ear Coding Level of Care Code Est Pt Level 3 (15288) Diagnoses Non-recurrent acute suppurative otitis media of left ear without spontaneous rupture of tympanic membrane H66.002 Chronicity: acute Laterality: left Otitis media type: suppurative Recurrence: non-recurrent Spontaneous tympanic membrane rupture: without spontaneous rupture Time Spent (min) 15
== END 2023-12-16 14:34 | disposition home or self-care (01) ==
PROVIDERS: PCP Internal Medicine; Visit Provider Nurse Practitioner Family
DX: H66.002 Acute suppurative otitis media without spontaneous rupture of ear drum, left ear (principal)
CPT/HCPCS: 99213

== ENCOUNTER 2024-04-23 07:48 | Outpatient (REF) | payer OTHER, SELFPAY ==
[2024-04-23 07:59] LABS: MANUAL DIFF FLAG NO
[2024-04-23 08:38] LABS: Basophils Percent Auto 0.3 % (0-2); Eosinophils Absolute Auto 0.2 X10*3/uL (0.0-0.4); Eosinophils Percent Auto 2.2 % (0-4); Hematocrit 29.7 % (37.0-47.0); Hemoglobin 8.6 g/dl (12.0-16.0); Imm Gran Abs Auto 0.04 X10*3/uL (0.00-0.03); Imm Gran Pct Auto 0.4 % (0.0-0.4); Lymphocytes Percent Auto 28.9 % (20-40); Mean Corpuscular Volume 68.9 fL (80.0-98.0); Monocytes Absolute Auto 0.8 X10*3/uL (0.1-1.2); Monocytes Percent Auto 7.9 % (2-11); Neutrophils Absolute Auto 6.2 x10*3/uL (2.0-8.3); Neutrophils Percent Auto 60.3 % (45-73); Platelet Count 365 X10*3/uL (160-400); Red Blood Count 4.31 X10*6/uL (4.20-5.50); Red Cell Distribution Width 19.9 % (11.0-16.0); White Blood Count 10.3 X10*3/uL (4.8-10.8)
[2024-04-23 08:40] LABS: Appearance Urine Clear; Color Urine Yellow; Glucose Urine UA Negative (Negative); Leukocyte Esterase Urine Negative (Negative); Nitrite Urine Negative (Negative); PH 5.5 (5.0-9.0); UMIC TRIGGER UACC YES; Urine Blood Large (3+) (Negative); Urine Ketones Negative (Negative); Urine Protein 30 (1+) mg/dL (Neg-Trace)
[2024-04-23 09:08] LABS: Bacteria Urine None Seen (None Seen); Hyaline Casts Urine 0-2 /LPF (0-2); RBC Urine >20 /HPF (0-2); Squamous Epithelial Cell Urine 0-2 /HPF (0-2); WBC Urine 0-5 /HPF (0-5)
[2024-04-23 09:10] LABS: Alanine Aminotransferase 26 U/L (0-31); Albumin Level 4.1 g/dL (3.5-5.0); Alkaline Phosphatase 105 U/L (39-117); Anion Gap 13 (12-20); Aspartate Amino Transferase 25 U/L (5-31); Bilirubin Total 0.5 mg/dL (0.0-1.0); Blood Urea Nitrogen 10 mg/dL (9-16); Carbon Dioxide 24 mmol/L (22-29); Chloride 106 mmol/L (96-108); Cholesterol 152 mg/dL (<200); Estimated Glomerular Filt Rate > 60; Glucose Fasting 121 mg/dL (60-99); HDL Cholesterol 44 mg/dL (>40); Iron 22 mcg/dL (30-160); LDL Cholesterol Calculated 95 mg/dL (<100); Percent Iron Saturation 6 % (15-50); Sodium 139 mmol/L (135-145); Total Iron Binding Capacity 358 mcg/dL (228-428); Total Protein 7.5 g/dL (6.5-8.0); Triglycerides 68 mg/dL (<150); Unsaturated Iron Binding 336 ug/dL
[2024-04-23 09:25] LABS: Vitamin D 25-OH Total 27.5 ng/mL (>30)
[2024-04-23 09:31] LABS: Vitamin B12 466 pg/mL (200-900)
== END 2024-04-23 07:49 | disposition home or self-care (01) ==
LOC: HO.LAB 07:48
PROVIDERS: PCP Internal Medicine; Visit Provider Internal Medicine
DX: D64.9 Anemia, unspecified (principal); E53.8 Deficiency of other specified B group vitamins; I10 Essential (primary) hypertension; E55.9 Vitamin D deficiency, unspecified
CPT/HCPCS: 36415; 80053; 80061; 81001; 82306; 82607; 82746; 83540; 85025

== ENCOUNTER 2024-04-24 19:43 | Emergency (ER) | payer OTHER, SELFPAY ==
--- NOTE | 2024-04-24 | ECG_ITS ---
Test Reason : CHEST PAIN Blood Pressure : / mmHG Vent. Rate : 075 BPM Atrial Rate : 075 BPM P-R Int : 136 ms QRS Dur : 100 ms QT Int : 412 ms P-R-T Axes : 053 039 052 degrees QTc Int : 460 ms Normal sinus rhythm Possible Left atrial enlargement Borderline ECG No previous ECGs available Referred By: Generic ED Physician Electronically Signed By:VENU ALVAREZ
--- NOTE | ~2024-04-24 | CT_ITS ---
EXAMINATION: CT ANGIOGRAM OF THE CHEST WITH AND WITHOUT CONTRAST (CT PULMONARY ANGIOGRAM FOR PE) CLINICAL INFORMATION: Reason for Exam CP and elevated D-dimer COMPARISON: 04/24/2024 TECHNIQUE: Prior to contrast administration, noncontrast localization images were obtained. Subsequently, multidetector volumetric imaging was performed from the thoracic inlet to below the diaphragms following the administration of 65 mL Omnipaque 350 intravenous contrast. No contrast reaction reported Sagittal, coronal, and MIP oblique sagittal reformatted images were obtained on the CT workstation, uploaded to PACS, and reviewed. This CT examination was performed using dose optimization techniques as appropriate, variously including the following: *Automated exposure control *Adjustment of mA and/or kV according to patient size (this includes techniques or standardized protocols for targeted exams where dose is matched to indication/reason for exam; i.e. extremities or head) *Use of iterative reconstruction technique Total exam dose-length product 323 mGy-cm FINDINGS: QUALITY OF STUDY/CONTRAST BOLUS: Suboptimal. PULMONARY ARTERIES: No pulmonary emboli. THORACIC AORTA: No aneurysm. LUNG: No focal consolidation, nodules or masses. PLEURA: No pleural effusion or pneumothorax. MEDIASTINUM: Normal heart size. No pericardial effusion. No hilar or mediastinal lymphadenopathy. No evidence of septal bowing or right heart strain. CORONARY ARTERY CALCIFICATION: None visualized on this study. CHEST WALL/AXILLA: Bilateral axillary adenopathy. Right axillary lymph node measures 1.1 cm. No mediastinal adenopathy. OSSEOUS STRUCTURES: No acute or suspicious osseous abnormality. UPPER ABDOMEN: Unremarkable. No reflux of contrast into the hepatic veins to suggest elevated right heart pressures. CT/CT angio chest PE protocol IMPRESSION: * No pulmonary embolus. * Bilateral axillary adenopathy. VTE: negative.
--- NOTE | ~2024-04-24 | XR_ITS ---
EXAMINATION: XR CHEST CLINICAL INFORMATION: Chest pain COMPARISON: 12/07/2023 TECHNIQUE: 2 views of the chest were obtained. FINDINGS: No significant abnormality is noted involving the heart, lungs, mediastinum, bony thorax or soft tissues. XR/XR chest 2V IMPRESSION: Unremarkable examination.
--- NOTE | 2024-04-24 20:09 | ED.GENADULT ---
HPI - General Adult General Chief complaint: Chest Pain Stated complaint: chest and abdominal pain Time Seen by Provider: 04/24/24 21:24 Source: patient Mode of arrival: ambulatory Limitations: no limitations History of Present Illness ED Provider: DR. Bee HPI narrative: 48-year-old female presented for evaluation of chest pain and epigastric pain that started at 17:00 today. Patient stated that she ate [employer] fresh with her family today shortly after started to have left-sided chest pain that is localized to the left chest that was described as on and off lasts for few seconds then go away with no radiation shortly after patient had chest pain started to have epigastric pain followed by diarrhea, patient felt very anxious then and walked to the hospital for further evaluation stated that the chest pain was worsening with walking and exertion. No recent travel, no prolonged immobilization, no lower extremity swelling or tenderness, no fever, no chills, no SOB, no chest injury. In the process of workup for abnormal mammogram and left breast mass. Related Data Previous Rx's ?Medication ?Instructions ?Recorded ferrous sulfate 325 mg (65 mg 325 mg PO BID #60 tabs 07/29/23 iron) tablet lisinopril 40 mg tablet 40 mg PO DAILY 90 days #90 tabs 07/29/23 loratadine 10 mg tablet 10 mg PO DAILY 30 days #30 tabs 07/29/23 cyclobenzaprine 5 mg tablet 5 mg PO Q8H PRN pain (scale score 08/25/23 7-10) 5 days #14 tabs naproxen 500 mg tablet 500 mg PO BID PRN pain 10 days #20 08/25/23 tabs ascorbic acid (vitamin C) 250 mg 250 mg PO DAILY #60 tabs 09/23/23 tablet cholecalciferol (vitamin D3) 50 50 mcg PO DAILY #90 tabs 09/23/23 mcg (2,000 unit) tablet albuterol sulfate 90 mcg/actuation 2 puff inhalation Q4-6H PRN 10/17/23 aerosol inhaler shortness of breath or wheezing #6.7 grams hydrocodone-homatropine 5 mg-1.5 5 ml PO Q4-6H PRN cough #60 mL 10/17/23 mg/5 mL (5 mL) oral syrup (Hycodan) bisacodyl 5 mg tablet,delayed 20 mg (4 x 5 mg) PO ONCE 1 day #4 12/14/23 release (Dulcolax (bisacodyl)) tabs polyethylene glycol 3350 17 238 g PO ONCE #238 grams 12/14/23 gram/dose oral powder (Miralax) acetaminophen 500 mg tablet 1,000 mg (2 x 500 mg) PO Q6H PRN 12/16/23 (Tylenol Extra Strength) pain #14 tabs amoxicillin 875 mg-potassium 1 tab PO BID 10 days #20 tabs 12/16/23 clavulanate 125 mg tablet amlodipine 2.5 mg tablet 2.5 mg PO DAILY 90 days #90 tabs 12/22/23 Allergies Allergy/AdvReac Type Severity Reaction Status Date / Time gluten [GLUTEN] Allergy Intermediate HIVES Verified 04/24/24 20:14 ciprofloxacin [From CIPRO] Allergy Unknown Rash Verified 04/24/24 20:14 PEPPERS Allergy Severe HIVES Uncoded 04/24/24 20:14 Review of Systems Review of Systems: All other systems are reviewed and are negative Constitutional: Reports as per HPI and Reports no additional constitutional complaints Eyes: Reports as per HPI and Reports no additional eye complaints Reports system reviewed and no additional complaints, except as documented Cardiovascular: Reports as per HPI and Reports no additional cardiovascular complaints Respiratory: Reports as per HPI and Reports no additional respiratory complaints Gastrointestinal: Reports as per HPI and Reports no additional gastrointestinal complaints Genitourinary: Reports no additional female genitourinary complaints Musculoskeletal: Reports no additional musculoskeletal complaints Skin/Breast: Reports system reviewed and no additional complaints, except as docu Psychiatric: Reports no additional psychiatric complaints Endocrine: Reports no additional endocrine complaints Hematologic/Lymphatic: Reports no additional hematologic/lymphatic complaints Allergic/Immunologic: Reports no additional allergic/immunologic complaints Reports system reviewed and no additional complaints, except as documented and Reports Abnormal speech present [facility] Past Medical History Medical History At high risk for breast cancer Goiter Allergic rhinitis Impaired glucose tolerance Essential hypertension Surgical History History of tonsillectomy and adenoidectomy Family History Family History Mother Hypertension CVD (cardiovascular disease) Breast cancer Pacemaker Father Hypertension Diabetes Parkinson's disease Brother In good health Brother In good health Son In good health Son In good health Daughter In good health Family/Other Chronic mental illness Family/Other Prostate cancer Family/Other Ovarian cancer Family/Other Ovarian cancer Social History Social History Household Members: Spouse Housing: House Alcohol intake: never Patient Tobacco Use Status: Never used Tobacco Smoked in Last 30 Days: No e-Cigarette/Vaping Use: Never Used Second Hand Smoke Exposure: No Use of substances other than those prescribed or required for medical reasons: No Advance Directives: No Advance Directives Information Provided: No Do you have a plan to hurt others: No Plan Patient : No service: No Current occupational status: unemployed Cognitive needs: No Hearing needs: No Vision needs: No Physical Exam ED Vital Signs: Vital Signs - 24 hr 04/24/24 20:12 Temperature 98.4 F Pulse Rate 78 Respiratory Rate 18 Blood Pressure 193/99 H Pulse Oximetry 99 Oxygen Delivery Method Room Air BMI result Body Mass Index 30.3 Vital signs have been reviewed and appear to be correct. Blood pressure elevated. Heart rate normal. Respiratory rate normal. Temperature normal. Oxygen saturation normal. Appearance: Alert. Oriented X3. No acute distress. Head: Normal external exam. Normocephalic. Atraumatic. No Moore signs noted. No raccoon eyes noted Eyes: PERRLA. EOMI. Conjunctiva and sclera normal. Eyelids normal. ENT: TM's Normal. Pharynx normal. Uvula midline. Moist mucous membranes. No trismus noted. No drooling noted. No muffled voice noted. Neck: Normal inspection. Neck supple. FROM. No adenopathy. Thyroid Normal. No meningeal signs. No neck mass noted. CVS: Normal heart rate and rhythm. Heart sound normal. No murmurs noted. Pulses normal throughout. Respiratory: No respiratory distress. Painless inspiration. Breath sounds normal. No wheezes/rales/rhonchi noted. Point of tenderness on the left side of the chest, no step-off, no deformity. No accessory muscle usage noted or decreased air movement noted. Abdomen: Soft and nontender. Bowel sounds normal in all 4 quadrants. No distention noted. No organomegaly noted. No visible injury noted. Back: No CVA tenderness. Full range of motion noted. Skin: Skin warm and dry. Normal skin color. Normal skin turgor. No rashes/lesions/lacerations noted. Extremities: No lower extremity edema. Extremities exhibit normal range of motion. Extremities nontender. Neuro: Oriented X 3. Cranial nerve exam: II-XII are grossly intact No motor deficit. No sensory deficit. Reflexes normal. Course Course Course Narrative: This is a rapid medical exam performed by Jose Coleman NP: Additional HPI, ROS, PE not included below will be deferred to primary provider. Patient is a 48-year-old female with history of HTN, anemia presenting to the emergency department with complaint of chest pain after walking up the steps into her house prior to arrival. States once inside she developed chest pain, nausea and went to the bathroom and had a bowel movement. Currently being worked up for left breast mass, had labs drawn this morning. Current pain /10. BP 193/99 in triage. Plan: EKG, labs, CXR Reevaluation(s) Reevaluation #1: 48-year-old female presented with chest pain, elevated D-dimer. ACS is not likely diagnosis, CT angio is unremarkable for acute intrathoracic pathology. Mild point of tenderness on exam. Elevated blood pressure known history of hypertension on amlodipine 2.5 mg will administer p.o. amlodipine 2.5 mg and recheck blood pressure. Time: 23:50 Medical Decision Making Differential Diagnosis Differential Diagnoses: The differential diagnosis associated with the presentation includes (ACS, pulmonary embolism, pneumonia, pneumothorax, pleural effusion, electrolyte derangement, gastritis, pancreatitis, severe anemia.) Admission/Observation Consideration of admission/observation: Escalation of care including admission/observation considered Lab Data MDM Lab Attestation statement: I reviewed the patient's lab results. 04/24/24 20:19 04/24/24 20:19 Labs: Lab Results 04/24/24 Range/Units 20:19 WBC 12.9 H (4.8-10.8) X10*3/uL RBC 4.18 L (4.20-5.50) X10*6/uL Hgb 8.2 L (12.0-16.0) g/dl Hct 28.7 L (37.0-47.0) % MCV 68.7 L (80.0-98.0) fL MCH 19.6 L (27.0-33.0) pg MCHC 28.6 L (31.0-35.0) g/dl RDW 20.0 H (11.0-16.0) % Plt Count 359 (160-400) X10*3/uL MPV 10.7 (9.4-12.3) fL Immature Gran % (Auto) 0.4 (0.0-0.4) % Neut % (Auto) 61.8 (45-73) % Lymph % (Auto) 25.8 (20-40) % [place] % (Auto) 10.1 (2-11) % Eos % (Auto) 1.6 (0-4) % Baso % (Auto) 0.3 (0-2) % Lymph # (Auto) 3.3 (1.2-4.9) X10*3/uL [place] # (Auto) 1.3 H (0.1-1.2) X10*3/uL Eos # (Auto) 0.2 (0.0-0.4) X10*3/uL Baso # (Auto) 0.0 (0.0-0.2) X10*3/uL Abs Immat Gran (auto) 0.05 H (0.00-0.03) X10*3/uL Absolute Neuts (auto) 7.9 (2.0-8.3) x10*3/uL Absolute Nucleated RBC 0.000 (0.0-0.012) X10*3/uL Nucleated RBC % (auto) 0.0 (0.0-0.2) /100WBC PT 12.9 (11.1-13.3) SEC INR 1.1 (0.9-1.1) D-Dimer High Sensitivty 481 NG/ML Sodium 137 (135-145) mmol/L Potassium 3.8 (3.3-5.1) mmol/L Chloride 104 (96-108) mmol/L Carbon Dioxide 26 (22-29) mmol/L Anion Gap 11 L (12-20) BUN 16 (9-16) mg/dL Creatinine 0.77 (0.5-1.4) mg/dL Estim Creat Clear Calc 110.8 Estimated GFR > 60 Random Glucose 101 (60-115) mg/dL Calcium 9.2 (8.4-10.2) mg/dL Total Bilirubin 0.3 (0.0-1.0) mg/dL AST 27 (5-31) U/L ALT 30 (0-31) U/L Alkaline Phosphatase 108 (39-117) U/L Troponin I High Sens 8.9 (<3.5-17.0) ng/L Total Protein 7.7 (6.5-8.0) g/dL Albumin 4.2 (3.5-5.0) g/dL Independent Interpretation I performed an independent interpretation of an: EKG (Normal sinus rhythm at 75 beats per minutes, normal intervals, nonspecific T-wave flattening in the inferior lead, no old EKG to compare.), Plain X-Ray (Chest, no acute intrathoracic pathology) and CT Scan (CT angio of the chest: No pulmonary embolism) Radiology Impression Discussion of test interpretation with radiology: I have reviewed the radiologist's reading. Chronic Conditions Patient?s care impacted by: Hypertension Discharge Plan Discharge Clinical Impression: Chest pain Patient Disposition: Home, Self-Care Instructions: Chest Pain (ED) Prescriptions: No Action ferrous sulfate 325 mg (65 mg iron) tablet 325 mg PO BID Qty: 60 6RF lisinopril 40 mg tablet 40 mg PO DAILY 90 Days Qty: 90 1RF loratadine 10 mg tablet 10 mg PO DAILY 30 Days Qty: 30 6RF amlodipine 2.5 mg tablet 2.5 mg PO DAILY 90 Days Qty: 90 0RF naproxen 500 mg tablet 500 mg PO BID PRN (Reason: pain) 10 Days Qty: 20 0RF cyclobenzaprine 5 mg tablet 5 mg PO Q8H PRN (Reason: pain (scale score 7-10)) 5 Days Qty: 14 0RF hydrocodone-homatropine [Hycodan] 5-1.5 mg/5 mL (5 mL) syrup 5 ml PO Q4-6H PRN (Reason: cough) Qty: 60 0RF Rx Instructions: Partial Fill upon patient request. albuterol sulfate 90 mcg/actuation HFA aerosol inhaler 2 puff inhalation Q4-6H PRN (Reason: shortness of breath or wheezing) Qty: 6.7 0RF ascorbic acid (vitamin C) 250 mg tablet 250 mg PO DAILY Qty: 60 0RF cholecalciferol (vitamin D3) 50 mcg (2,000 unit) tablet 50 mcg PO DAILY Qty: 90 0RF bisacodyl [Dulcolax (bisacodyl)] 5 mg tablet,delayed release (DR/EC) 20 mg PO ONCE 1 Days Qty: 4 0RF Rx Instructions: take at 12pm the day before procedure with 16oz of water polyethylene glycol 3350 [Miralax] 17 gram/dose powder 238 g PO ONCE Qty: 238 0RF Rx Instructions: take as directed by GI office acetaminophen [Tylenol Extra Strength] 500 mg tablet 1,000 mg PO Q6H PRN (Reason: pain) Qty: 14 0RF amoxicillin-pot clavulanate 875-125 mg tablet 1 tab PO BID 10 Days Qty: 20 0RF Referrals: Madhavi Isaacs MD [Primary Care Provider] - Print Language: Amharic
[2024-04-24 20:12] VITALS: BP 193/99; PULSE 78; RESP 18; TEMP 36.9; O2SAT 99; BMI 30.3
--- NOTE | 2024-04-24 20:15 | PC.NURSE ---
T/w was triaging pts when pt arrived for chest pain. T/w was not informed by corporate secretary that pt was coming in for chest pain. Pt reprts approximately 20 minutes ago walked up the stairs to her home and started to develop chest pain, went in to have abm and developed nausea no vomiting, no shortness of breath. EKG completed in triage, labs done by triage tech and pt going to XRAY.
[2024-04-24 20:32] LABS: MANUAL DIFF FLAG NO
[2024-04-24 20:40] LABS: Basophils Percent Auto 0.3 % (0-2); Eosinophils Absolute Auto 0.2 X10*3/uL (0.0-0.4); Eosinophils Percent Auto 1.6 % (0-4); Hematocrit 28.7 % (37.0-47.0); Hemoglobin 8.2 g/dl (12.0-16.0); Imm Gran Abs Auto 0.05 X10*3/uL (0.00-0.03); Imm Gran Pct Auto 0.4 % (0.0-0.4); Lymphocytes Absolute Auto 3.3 X10*3/uL (1.2-4.9); Lymphocytes Percent Auto 25.8 % (20-40); Mean Corpuscular HGB Conc 28.6 g/dl (31.0-35.0); Mean Corpuscular Hemoglobin 19.6 pg (27.0-33.0); Mean Corpuscular Volume 68.7 fL (80.0-98.0); Mean Platelet Volume 10.7 fL (9.4-12.3); Monocytes Absolute Auto 1.3 X10*3/uL (0.1-1.2); Monocytes Percent Auto 10.1 % (2-11); Neutrophils Absolute Auto 7.9 x10*3/uL (2.0-8.3); Neutrophils Percent Auto 61.8 % (45-73); Platelet Count 359 X10*3/uL (160-400); Red Blood Count 4.18 X10*6/uL (4.20-5.50); White Blood Count 12.9 X10*3/uL (4.8-10.8)
[2024-04-24 20:49] LABS: INTERNATIONAL NORM RATIO 1.1 (0.9-1.1); Prothrombin Time 12.9 SEC (11.1-13.3)
[2024-04-24 21:03] LABS: Alanine Aminotransferase 30 U/L (0-31); Albumin Level 4.2 g/dL (3.5-5.0); Alkaline Phosphatase 108 U/L (39-117); Anion Gap 11 (12-20); Aspartate Amino Transferase 27 U/L (5-31); Bilirubin Total 0.3 mg/dL (0.0-1.0); Blood Urea Nitrogen 16 mg/dL (9-16); Calcium 9.2 mg/dL (8.4-10.2); Carbon Dioxide 26 mmol/L (22-29); Chloride 104 mmol/L (96-108); Creatinine Clr Calc Pharmacy 110.8; Estimated Glomerular Filt Rate > 60; Glucose Random 101 mg/dL (60-115); Potassium 3.8 mmol/L (3.3-5.1); Sodium 137 mmol/L (135-145); Total Protein 7.7 g/dL (6.5-8.0)
[2024-04-24 21:10] LABS: Troponin-I High Sensitivity 8.9 ng/L (<3.5-17.0)
[2024-04-24 21:20] VITALS: PULSE 75
[2024-04-24 21:33] LABS: D Dimer High Sensitivity 481 NG/ML
[2024-04-24 22:13] LABS: Lipase 17 U/L (8-78)
[2024-04-24 22:14] LABS: HCG Quantitative < 2 mIU/mL
[2024-04-24] MEDS: 0.9 % Sodium Chloride 1,000 ML 999 ML IV (22:18)
[2024-04-24] MEDS: iohexoL 350 MG/ML 100 ML INFUS..BTL 65 ML IV (22:18)
[2024-04-24] MEDS: amLODIPine Besylate 2.5 MG TABLET PO (22:18)
[2024-04-24 23:03] VITALS: BP 184/95; PULSE 88; RESP 22; TEMP 36.8; O2SAT 98
[2024-04-24 23:33] LABS: Troponin-I High Sensitivity 8.4 ng/L (<3.5-17.0)
[2024-04-25 00:19] VITALS: BP 184/95; PULSE 88; RESP 22; TEMP 36.8; O2SAT 98
== END 2024-04-25 00:19 | disposition home or self-care (01) ==
PROVIDERS: Registered Nurse Emergency; Emergency Provider Emergency Medicine; PCP Internal Medicine
DX: R07.89 Other chest pain (principal); R10.13 Epigastric pain; N63.20 Unspecified lump in the left breast, unspecified quadrant; R11.0 Nausea; Z79.899 Other long term (current) drug therapy
CPT/HCPCS: 36415; 71046; 71275; 80053; 83690; 84484; 84702; 85025; 85379; 85610; 93005; 96360; 99284; 99285; Q9967

== ENCOUNTER → 2024-04-24 20:09 | Outpatient (BNV) | payer OTHER, SELFPAY | PROVIDERS: Emergency Provider Emergency Medicine; PCP Internal Medicine; Visit Provider Internal Medicine | DX: R07.9 Chest pain, unspecified (principal); R94.31 Abnormal electrocardiogram [ECG] [EKG] | CPT/HCPCS: 93010 ==

== ENCOUNTER 2024-04-30 21:02 | Emergency (ER) | payer OTHER, SELFPAY ==
--- NOTE | ~2024-04-30 | XR_ITS ---
EXAMINATION: XR SOFT TISSUE NECK CLINICAL INDICATION: Right neck/throat pain. COMPARISON: None available. TECHNIQUE: 2 views of the soft tissue neck were obtained. FINDINGS: No appreciable retropharyngeal soft tissue swelling. Epiglottis is normal in appearance. Laryngeal soft tissues are unremarkable. No radiodense foreign bodies. 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 XR/XR soft tissue neck IMPRESSION: No acute findings in the soft tissues of the neck.
[2024-04-30 21:06] VITALS: BP 176/95; PULSE 89; RESP 18; TEMP 37.1; O2SAT 100; BMI 30.9
[2024-04-30 21:50] LABS: IDNOW Serial# 6674DD1D; Strep A Nucleic Acid Negative (Negative)
[2024-04-30 22:16] LABS: Influenza A PCR NEGATIVE (Negative); Influenza B PCR NEGATIVE (Negative); Resp Syncy Virus RNA Qual PCR NEGATIVE (Negative); SARS COV2 PCR INHOUSE NEGATIVE (Negative)
--- NOTE | 2024-04-30 22:50 | ED.GENADULT ---
HPI - General Adult General Chief complaint: General Medical Stated complaint: neck,throat swollen Time Seen by Provider: 04/30/24 22:49 Source: patient, family, RN notes reviewed and green end department supervisor (video) Limitations: no limitations History of Present Illness HPI narrative: 48-year-old female presents for evaluation of right-sided throat pain. Patient states shortly after she was eating food this evening she began to pain behind her right ear that migrated to the right side of her neck and throat. She reports it as a ?ball?. It has been in the same location for over 4 hours now. She is not having any difficulty swallowing. She does have mild discomfort with swallowing. She denies any fevers chills nausea or vomiting. No URI symptoms. She was able to tolerate liquids and food. When the symptoms remains she reported immediately to the emergency department. She denies any trauma. No rash. No new foods or detergents. Patient is otherwise feeling well. Related Data Previous Rx's ?Medication ?Instructions ?Recorded ferrous sulfate 325 mg (65 mg 325 mg PO BID #60 tabs 07/29/23 iron) tablet loratadine 10 mg tablet 10 mg PO DAILY 30 days #30 tabs 07/29/23 cyclobenzaprine 5 mg tablet 5 mg PO Q8H PRN pain (scale score 08/25/23 7-10) 5 days #14 tabs naproxen 500 mg tablet 500 mg PO BID PRN pain 10 days #20 08/25/23 tabs ascorbic acid (vitamin C) 250 mg 250 mg PO DAILY #60 tabs 09/23/23 tablet cholecalciferol (vitamin D3) 50 50 mcg PO DAILY #90 tabs 09/23/23 mcg (2,000 unit) tablet albuterol sulfate 90 mcg/actuation 2 puff inhalation Q4-6H PRN 10/17/23 aerosol inhaler shortness of breath or wheezing #6.7 grams hydrocodone-homatropine 5 mg-1.5 5 ml PO Q4-6H PRN cough #60 mL 10/17/23 mg/5 mL (5 mL) oral syrup (Hycodan) bisacodyl 5 mg tablet,delayed 20 mg (4 x 5 mg) PO ONCE 1 day #4 12/14/23 release (Dulcolax (bisacodyl)) tabs polyethylene glycol 3350 17 238 g PO ONCE #238 grams 12/14/23 gram/dose oral powder (Miralax) acetaminophen 500 mg tablet 1,000 mg (2 x 500 mg) PO Q6H PRN 12/16/23 (Tylenol Extra Strength) pain #14 tabs amoxicillin 875 mg-potassium 1 tab PO BID 10 days #20 tabs 12/16/23 clavulanate 125 mg tablet amlodipine 2.5 mg tablet 2.5 mg PO DAILY 90 days #90 tabs 04/26/24 lisinopril 40 mg tablet 40 mg PO DAILY 90 days #90 tabs 04/26/24 Allergies Allergy/AdvReac Type Severity Reaction Status Date / Time gluten [GLUTEN] Allergy Intermediate HIVES Verified 04/30/24 21:14 ciprofloxacin [From CIPRO] Allergy Unknown Rash Verified 04/30/24 21:14 PEPPERS Allergy Severe HIVES Uncoded 04/24/24 20:14 Review of Systems Review of Systems: Yes all other systems are reviewed and are negative ENT: Reports neck pain, Reports sore throat, Denies throat swelling and Denies tongue swelling Musculoskeletal: Musculoskeletal: Reports neck pain Allergic/Immunologic: Allergic/Immunologic: Denies throat swelling and Denies tongue swelling PMFSH Past Medical History Medical History At high risk for breast cancer Goiter Allergic rhinitis Impaired glucose tolerance Essential hypertension Surgical History History of tonsillectomy and adenoidectomy Family History Family History Mother Hypertension CVD (cardiovascular disease) Breast cancer Pacemaker Father Hypertension Diabetes Parkinson's disease Brother In good health Brother In good health Son In good health Son In good health Daughter In good health Family/Other Chronic mental illness Family/Other Prostate cancer Family/Other Ovarian cancer Family/Other Ovarian cancer Social History Social History Household Members: Spouse Housing: House Alcohol intake: never Patient Tobacco Use Status: Never used Tobacco e-Cigarette/Vaping Use: Never Used Second Hand Smoke Exposure: No Advance Directives: No Advance Directives Information Provided: No Do you have a plan to hurt others: No Plan Patient : No service: No Current occupational status: unemployed Cognitive needs: No Hearing needs: No Vision needs: No Physical Exam ED Vital Signs: Vital Signs - 24 hr 04/30/24 21:06 Temperature 98.7 F Pulse Rate 89 Respiratory Rate 18 Blood Pressure 176/95 H Pulse Oximetry 100 Oxygen Delivery Method Room Air BMI result Body Mass Index 30.9 Const Other: Speaks full clear sentences. HENMT Other: Auditory canals are patent bilaterally. TMs are pearly white. Nares are patent. Oropharynx is moist. No tongue elevation or edema. No drooling. No evidence of infection. No stridor. No evidence of ANIMAL CHIROPRACTOR. Teeth are in good repair. Neck Other: The neck is supple, nontender. Suspect thyroid enlargement however difficult to ascertain. No lymphadenopathy noted. No mastoid tenderness bilaterally. Resp Auscultation: clear to auscultation bilaterally Cardio Rate: regular rate Rhythm: regular rhythm Skin Other: No skin changes to the head or neck. No ecchymosis Course Course Course Narrative: Preliminary review of x-ray, no acute process. Reviewed preliminary x-ray findings and all discharge instructions with the patient via video green end department supervisor. Patient expresses understanding of all discharge instructions and has no further questions at this time. Medical Decision Making Medical Decision Making [facility] Narrative: 48-year-old female who reports right-sided neck, throat pain. She has been resting comfortably and speaks full clear sentences. There was no emergent airway compromise or involvement. There is no stridor and the patient is tolerating secretions. Upon entering the exam room the patient is speaking with her daughter on the phone. No obvious signs of infection, trauma or foreign body on exam. Check soft tissue x-ray. Unlikely perforation. There is no evidence of upper airway obstruction. At the bedside, patient was able to tolerate water without difficulty. She reports that it went down well and without pain. Viral swabs are negative Differential Diagnosis Differential Diagnoses: The differential diagnosis associated with the presentation includes Globus Foreign body Esophageal abrasion Contusion Lab Data [facility] Lab Attestation statement: I reviewed the patient's lab results. Labs: Lab Results 04/30/24 Range/Units 21:24 Influenza Type A (PCR) NEGATIVE (Negative) Influenza Type B (PCR) NEGATIVE (Negative) RSV RNA Qual (PCR) NEGATIVE (Negative) SARS-CoV-2 RNA (RT-PCR) NEGATIVE (Negative) S. pyogenes GrpA KAM Negative (Negative) Independent Interpretation I performed an independent interpretation of an: Plain X-Ray Interpretation: Soft tissue of the neck, no acute process. Prescription Management I considered prescription management with: Pain Medication Chronic Conditions Patient?s care impacted by: Hypertension Discharge Plan Discharge Clinical Impression: Acute sore throat, Globus sensation Patient Disposition: Home, Self-Care Instructions: Pharyngitis (ED) Additional Instructions: Warm water and salt gargles. Soft foods. Follow-up with your primary care provider. Call this week to schedule a follow-up appointment. Return to the emergency department if you have any worsening of symptoms, or any concerns. Get well soon! Prescriptions: No Action ferrous sulfate 325 mg (65 mg iron) tablet 325 mg PO BID Qty: 60 6RF loratadine 10 mg tablet 10 mg PO DAILY 30 Days Qty: 30 6RF amlodipine 2.5 mg tablet 2.5 mg PO DAILY 90 Days Qty: 90 0RF lisinopril 40 mg tablet 40 mg PO DAILY 90 Days Qty: 90 1RF naproxen 500 mg tablet 500 mg PO BID PRN (Reason: pain) 10 Days Qty: 20 0RF cyclobenzaprine 5 mg tablet 5 mg PO Q8H PRN (Reason: pain (scale score 7-10)) 5 Days Qty: 14 0RF hydrocodone-homatropine [Hycodan] 5-1.5 mg/5 mL (5 mL) syrup 5 ml PO Q4-6H PRN (Reason: cough) Qty: 60 0RF Rx Instructions: Partial Fill upon patient request. albuterol sulfate 90 mcg/actuation HFA aerosol inhaler 2 puff inhalation Q4-6H PRN (Reason: shortness of breath or wheezing) Qty: 6.7 0RF ascorbic acid (vitamin C) 250 mg tablet 250 mg PO DAILY Qty: 60 0RF cholecalciferol (vitamin D3) 50 mcg (2,000 unit) tablet 50 mcg PO DAILY Qty: 90 0RF bisacodyl [Dulcolax (bisacodyl)] 5 mg tablet,delayed release (DR/EC) 20 mg PO ONCE 1 Days Qty: 4 0RF Rx Instructions: take at 12pm the day before procedure with 16oz of water polyethylene glycol 3350 [Miralax] 17 gram/dose powder 238 g PO ONCE Qty: 238 0RF Rx Instructions: take as directed by GI office acetaminophen [Tylenol Extra Strength] 500 mg tablet 1,000 mg PO Q6H PRN (Reason: pain) Qty: 14 0RF amoxicillin-pot clavulanate 875-125 mg tablet 1 tab PO BID 10 Days Qty: 20 0RF Print Language: Bulgarian
[2024-05-01 00:38] VITALS: BP 149/77; PULSE 89; RESP 16; TEMP 36.8; O2SAT 98
== END 2024-05-01 00:43 | disposition home or self-care (01) ==
PROVIDERS: Emergency Provider Emergency Medicine; PCP Internal Medicine
DX: J02.9 Acute pharyngitis, unspecified (principal); F45.8 Other somatoform disorders; Z03.818 Encounter for observation for suspected exposure to other biological agents ruled out; I10 Essential (primary) hypertension
CPT/HCPCS: 0241U; 70360; 87651; 99283; 99284

== ENCOUNTER 2024-05-10 13:48 | Outpatient (REF) | payer OTHER, SELFPAY | END 2024-05-10 13:49 | disposition home or self-care (01) | LOC: HO.MAMMO 13:48 | PROVIDERS: PCP Internal Medicine; Visit Provider Surgery | DX: Z13.89 Encounter for screening for other disorder (principal) ==

== ENCOUNTER 2024-05-10 16:42 | Emergency (ER) | payer OTHER, SELFPAY ==
--- NOTE | ~2024-05-10 | US_ITS ---
EXAMINATION: US TRIPLEX LOWER EXTREMITY, RIGHT CLINICAL INFORMATION: Right lower extremity swelling COMPARISON: 01/02/23 TECHNIQUE: Color-flow triplex imaging with spectral analysis and compression Doppler were performed on the right lower extremity. FINDINGS: Respiratory variation, normal compression and augmented flow are noted throughout the right lower extremity. The visualized common femoral vein, superficial femoral vein, profunda femoral vein, popliteal vein and midcalf peroneal and posterior tibial venous segments show no evidence of deep venous thrombosis. There is no Rowe's cyst. US/US venous duplex LE RT IMPRESSION: No evidence of deep venous thrombosis involving the right lower extremity. Electronically signed by: Isis Ram MD 05/10/2024 05:49 PM EDT
--- NOTE | 2024-05-10 16:47 | ED.GENADULT ---
HPI - General Adult General Chief complaint: General Medical Stated complaint: R foot swelling, sent from primary Time Seen by Provider: 05/10/24 17:47 Source: patient, RN notes reviewed and old records reviewed Mode of arrival: ambulatory Limitations: no limitations History of Present Illness ED Provider: Mali Richards PA-C HPI narrative: 48 yo female presents to the ER for evaluation of RLE redness, pain, warmth and swelling that has been getting worse over the last 3 days. No injury or trauma that she can recall. No fever or chills. No chest pain or SOB. Not diabetic and does not have open wounds. Her PCP told her to come to the ER for evaluation. MD complaint: RLE swelling, redness, pain Onset (ago): day(s) (3) Location: right and lower extremity Radiation: proximal Severity: moderate Quality: aching Pain Consistency: constant Relieving factors: rest Exacerbating factors: movement Associated symptoms: denies other symptoms Treatments prior to arrival: none Related Data Previous Rx's ?Medication ?Instructions ?Recorded loratadine 10 mg tablet 10 mg PO DAILY 30 days #30 tabs 07/29/23 cyclobenzaprine 5 mg tablet 5 mg PO Q8H PRN pain (scale score 08/25/23 7-10) 5 days #14 tabs naproxen 500 mg tablet 500 mg PO BID PRN pain 10 days #20 08/25/23 tabs albuterol sulfate 90 mcg/actuation 2 puff inhalation Q4-6H PRN 10/17/23 aerosol inhaler shortness of breath or wheezing #6.7 grams hydrocodone-homatropine 5 mg-1.5 5 ml PO Q4-6H PRN cough #60 mL 10/17/23 mg/5 mL (5 mL) oral syrup (Hycodan) bisacodyl 5 mg tablet,delayed 20 mg (4 x 5 mg) PO ONCE 1 day #4 12/14/23 release (Dulcolax (bisacodyl)) tabs polyethylene glycol 3350 17 238 g PO ONCE #238 grams 12/14/23 gram/dose oral powder (Miralax) acetaminophen 500 mg tablet 1,000 mg (2 x 500 mg) PO Q6H PRN 12/16/23 (Tylenol Extra Strength) pain #14 tabs amoxicillin 875 mg-potassium 1 tab PO BID 10 days #20 tabs 12/16/23 clavulanate 125 mg tablet amlodipine 2.5 mg tablet 2.5 mg PO DAILY 90 days #90 tabs 04/26/24 lisinopril 40 mg tablet 40 mg PO DAILY 90 days #90 tabs 04/26/24 ascorbic acid (vitamin C) 250 mg 250 mg PO DAILY #60 tabs 05/01/24 tablet blood pressure test kit-large #1 ea 05/01/24 ([employer] Blood Pressure Monitor kit) cholecalciferol (vitamin D3) 50 50 mcg PO DAILY #90 tabs 05/01/24 mcg (2,000 unit) tablet ferrous sulfate 325 mg (65 mg 325 mg PO BID #60 tabs 05/01/24 iron) tablet cephalexin 500 mg capsule 500 mg PO Q6H 7 days #28 caps 05/10/24 doxycycline hyclate 100 mg tablet 100 mg PO BID #14 tabs 05/10/24 ibuprofen 600 mg tablet 600 mg PO Q8H PRN pain #14 tabs 05/10/24 Allergies Allergy/AdvReac Type Severity Reaction Status Date / Time gluten [GLUTEN] Allergy Intermediate HIVES Verified 05/10/24 16:50 ciprofloxacin [From CIPRO] Allergy Unknown Rash Verified 05/10/24 16:50 PEPPERS Allergy Severe HIVES Uncoded 04/24/24 20:14 Review of Systems Review of Systems: Yes all other systems are reviewed and are negative [facility] Past Medical History Medical History At high risk for breast cancer Goiter Allergic rhinitis Impaired glucose tolerance Essential hypertension Surgical History History of tonsillectomy and adenoidectomy Family History Family History Mother Hypertension CVD (cardiovascular disease) Breast cancer Pacemaker Father Hypertension Diabetes Parkinson's disease Brother In good health Brother In good health Son In good health Son In good health Daughter In good health Family/Other Chronic mental illness Family/Other Prostate cancer Family/Other Ovarian cancer Family/Other Ovarian cancer Social History Social History Household Members: Spouse Housing: House Alcohol intake: never Patient Tobacco Use Status: Never used Tobacco e-Cigarette/Vaping Use: Never Used Second Hand Smoke Exposure: No Advance Directives: No Advance Directives Information Provided: No Do you have a plan to hurt others: No Plan service: No Current occupational status: unemployed Cognitive needs: No Hearing needs: No Vision needs: No Physical Exam ED Vital Signs: Vital Signs - 24 hr 05/10/24 16:48 05/10/24 19:13 Temperature 98.5 F 98.5 F Pulse Rate 86 86 Respiratory Rate 18 18 Blood Pressure 189/73 H 189/73 H Pulse Oximetry 99 99 Oxygen Delivery Method Room Air Room Air BMI result Body Mass Index 30.8 Appearance: Alert. Oriented X3. No acute distress. HEENT: normal inspection CVS: Normal heart rate and rhythm. Pulses normal. Respiratory: No respiratory distress. Skin: Skin warm and dry. Normal skin color. Normal skin turgor. No rashes. Extremities: right lower leg and foot with moderate 2+ edema, nonpitting associated with warmth, tenderness and erythema. no calf tenderness. plantar aspect of the foot is normal without wounds. normal inspection of the LLE, no swelling or erythema. Neuro: Oriented X 3. No motor deficit. No sensory deficit. Course Course Course Narrative: This is an RME done by LUISITO Solo: Additional HPI, ROS, PE not included below will be deferred to primary provider. 48 year old female with concerns of worsening RLE swelling that has been present for a while. Plan - imaging, labs Appearance: Alert.? Oriented X3.? No acute cardiopulmonary distress distress.? Head: Normocephalic, atraumatic, no step-offs or deformities Neck: Normal inspection.? Neck supple.? CVS: Pulses normal.? Respiratory: No respiratory distress.? Abdomen: Soft and nontender.? Skin: ? Normal skin color. Extremities: 5/5 strength to bilateral upper and lower extremities; 2+ non-pitting edema to RLE Neuro: Oriented X 3.? No motor deficit.? No sensory deficit. Medications Administered Discontinued Medications Generic Name Dose Route Start Last Admin Trade Name Freq PRN Reason Stop Dose Admin Cephalexin HCl 500 mg 05/10/24 18:53 05/10/24 19:09 Cephalexin 500 Mg Capsule PO 05/10/24 18:54 500 mg ONCE ONE Administration Doxycycline Monohydrate 100 mg 05/10/24 18:53 05/10/24 19:09 Doxycycline Monohydrate 100 Mg Capsule PO 05/10/24 18:54 100 mg ONCE ONE Administration Ibuprofen 600 mg 05/10/24 18:53 05/10/24 19:09 Ibuprofen 600 Mg Tablet PO 05/10/24 18:54 600 mg ONCE ONE Administration Medical Decision Making Medical Decision Making [facility] Narrative: 48 yo female presenting for evaluation of 3 days of worsening redness, swelling, pain and warmth to the RLE. exam is c/w cellulitis. she is not septic. U/S is negative for DVT. has good pulses, no evidence of arterial disease on exam. compartments are soft and compression. no visible insect bites or wounds. labs showing a mild leukocytosis. will start her on PO abx and NSAID. return precautions discussed. stable for d/c home with outpatient follow up. Differential Diagnosis Differential Diagnoses: The differential diagnosis associated with the presentation includes cellulitis, DVT, PAD, trauma, compartment syndrome Lab Data [facility] Lab Attestation statement: I reviewed the patient's lab results. stable chronic anemia, mild leukocytosis 05/10/24 18:08 05/10/24 18:08 Labs: Lab Results 05/10/24 Range/Units 18:08 WBC 11.6 H (4.8-10.8) X10*3/uL RBC 4.05 L (4.20-5.50) X10*6/uL Hgb 8.1 L (12.0-16.0) g/dl Hct 28.0 L (37.0-47.0) % MCV 69.1 L (80.0-98.0) fL MCH 20.0 L (27.0-33.0) pg MCHC 28.9 L (31.0-35.0) g/dl RDW 19.7 H (11.0-16.0) % Plt Count 336 (160-400) X10*3/uL MPV 9.7 (9.4-12.3) fL Immature Gran % (Auto) 0.3 (0.0-0.4) % Neut % (Auto) 63.3 (45-73) % Lymph % (Auto) 25.9 (20-40) % [place] % (Auto) 8.5 (2-11) % Eos % (Auto) 1.6 (0-4) % Baso % (Auto) 0.4 (0-2) % Lymph # (Auto) 3.0 (1.2-4.9) X10*3/uL [place] # (Auto) 1.0 (0.1-1.2) X10*3/uL Eos # (Auto) 0.2 (0.0-0.4) X10*3/uL Baso # (Auto) 0.1 (0.0-0.2) X10*3/uL Abs Immat Gran (auto) 0.04 H (0.00-0.03) X10*3/uL Absolute Neuts (auto) 7.3 (2.0-8.3) x10*3/uL Absolute Nucleated RBC 0.000 (0.0-0.012) X10*3/uL Nucleated RBC % (auto) 0.0 (0.0-0.2) /100WBC PT 12.4 (11.1-13.3) SEC INR 1.0 (0.9-1.1) Sodium 140 (135-145) mmol/L Potassium 3.6 (3.3-5.1) mmol/L Chloride 106 (96-108) mmol/L Carbon Dioxide 25 (22-29) mmol/L Anion Gap 13 (12-20) BUN 9 (9-16) mg/dL Creatinine 0.79 (0.5-1.4) mg/dL Estim Creat Clear Calc 108.9 Estimated GFR > 60 Random Glucose 109 (60-115) mg/dL Calcium 9.5 (8.4-10.2) mg/dL Total Bilirubin 0.2 (0.0-1.0) mg/dL AST 21 (5-31) U/L ALT 25 (0-31) U/L Alkaline Phosphatase 97 (39-117) U/L Total Protein 7.5 (6.5-8.0) g/dL Albumin 4.0 (3.5-5.0) g/dL Urine Color RED Urine Appearance Cloudy Urine pH 8.0 (5.0-9.0) Ur Specific [place] 1.015 (1.005-1.025) Urine Protein 30 (1+) H (Neg-Trace) mg/dL Urine Glucose (UA) Negative (Negative) mg/dL Urine Ketones Negative (Negative) mg/dL Urine Blood Large (3+) H (Negative) Urine Nitrite Negative (Negative) Ur Leukocyte Esterase Negative (Negative) Urine RBC >20 H (0-2) /HPF Urine WBC 0-5 (0-5) /HPF Ur Squamous Epith Cells 0-2 (0-2) /HPF Other Crystals Present Urine Bacteria None Seen (None Seen) Hyaline Casts 3-5 (0-2) /LPF Independent Interpretation I performed an independent interpretation of an: Ultrasound Interpretation: no dvt appreciated on u/s Radiology Impression Discussion of test interpretation with radiology: I have reviewed the radiologist's reading. Radiologist Impression: EXAMINATION: US TRIPLEX LOWER EXTREMITY, RIGHT CLINICAL INFORMATION: Right lower extremity swelling COMPARISON: 01/02/23 TECHNIQUE: Color-flow triplex imaging with spectral analysis and compression Doppler were performed on the right lower extremity. FINDINGS: Respiratory variation, normal compression and augmented flow are noted throughout the right lower extremity. The visualized common femoral vein, superficial femoral vein, profunda femoral vein, popliteal vein and midcalf peroneal and posterior tibial venous segments show no evidence of deep venous thrombosis. There is no Rowe's cyst. US/US venous duplex LE RT IMPRESSION: No evidence of deep venous thrombosis involving the right lower extremity. External Record Review External record reviewed: Office record, Outpatient record, Prior outpatient labs and Prior outpatient radiology Prescription Management I considered prescription management with: Pain Medication Chronic Conditions Patient?s care impacted by: Hypertension Discharge Plan Discharge Clinical Impression: Cellulitis of right lower extremity Patient Disposition: Home, Self-Care Instructions: Cellulitis (DC) Additional Instructions: Take the prescribed antibiotics as directed, complete the entire course and do not miss any doses Next doses of these medications are due in the morning, your given 1st doses today in the ER today. Your ultrasound did not show any evidence of blood clot. Follow up with your doctor If you develop new or worsening symptoms call 911 or come back to the ER for further evaluation. Prescriptions: New doxycycline hyclate 100 mg tablet 100 mg PO BID Qty: 14 0RF cephalexin 500 mg capsule 500 mg PO Q6H 7 Days Qty: 28 0RF ibuprofen 600 mg tablet 600 mg PO Q8H PRN (Reason: pain) Qty: 14 0RF No Action loratadine 10 mg tablet 10 mg PO DAILY 30 Days Qty: 30 6RF amlodipine 2.5 mg tablet 2.5 mg PO DAILY 90 Days Qty: 90 0RF lisinopril 40 mg tablet 40 mg PO DAILY 90 Days Qty: 90 1RF (DME) blood pressure test kit-large [[employer] BP Monitor] Kit See Rx Instructions .Route Qty: 1 0RF Rx Instructions: As directed ferrous sulfate 325 mg (65 mg iron) tablet 325 mg PO BID Qty: 60 6RF cholecalciferol (vitamin D3) 50 mcg (2,000 unit) tablet 50 mcg PO DAILY Qty: 90 0RF ascorbic acid (vitamin C) 250 mg tablet 250 mg PO DAILY Qty: 60 0RF naproxen 500 mg tablet 500 mg PO BID PRN (Reason: pain) 10 Days Qty: 20 0RF cyclobenzaprine 5 mg tablet 5 mg PO Q8H PRN (Reason: pain (scale score 7-10)) 5 Days Qty: 14 0RF hydrocodone-homatropine [Hycodan] 5-1.5 mg/5 mL (5 mL) syrup 5 ml PO Q4-6H PRN (Reason: cough) Qty: 60 0RF Rx Instructions: Partial Fill upon patient request. albuterol sulfate 90 mcg/actuation HFA aerosol inhaler 2 puff inhalation Q4-6H PRN (Reason: shortness of breath or wheezing) Qty: 6.7 0RF bisacodyl [Dulcolax (bisacodyl)] 5 mg tablet,delayed release (DR/EC) 20 mg PO ONCE 1 Days Qty: 4 0RF Rx Instructions: take at 12pm the day before procedure with 16oz of water polyethylene glycol 3350 [Miralax] 17 gram/dose powder 238 g PO ONCE Qty: 238 0RF Rx Instructions: take as directed by GI office acetaminophen [Tylenol Extra Strength] 500 mg tablet 1,000 mg PO Q6H PRN (Reason: pain) Qty: 14 0RF amoxicillin-pot clavulanate 875-125 mg tablet 1 tab PO BID 10 Days Qty: 20 0RF Interventions: ED Discharge Assessment Last Done: 05/10/24 19:13 Discharge Date/Time: 05/10/24 19:14 Print Language: Tunisian
[2024-05-10 16:48] VITALS: BP 189/73; PULSE 86; RESP 18; TEMP 36.9; O2SAT 99; BMI 30.8
[2024-05-10 18:13] LABS: MANUAL DIFF FLAG NO
[2024-05-10 18:15] LABS: Appearance Urine Cloudy; Basophils Absolute Auto 0.1 X10*3/uL (0.0-0.2); Basophils Percent Auto 0.4 % (0-2); Color Urine RED; Eosinophils Absolute Auto 0.2 X10*3/uL (0.0-0.4); Eosinophils Percent Auto 1.6 % (0-4); Glucose Urine UA Negative (Negative); Hemoglobin 8.1 g/dl (12.0-16.0); Imm Gran Abs Auto 0.04 X10*3/uL (0.00-0.03); Imm Gran Pct Auto 0.3 % (0.0-0.4); Leukocyte Esterase Urine Negative (Negative); Lymphocytes Percent Auto 25.9 % (20-40); Mean Corpuscular HGB Conc 28.9 g/dl (31.0-35.0); Mean Corpuscular Volume 69.1 fL (80.0-98.0); Mean Platelet Volume 9.7 fL (9.4-12.3); Monocytes Percent Auto 8.5 % (2-11); Neutrophils Absolute Auto 7.3 x10*3/uL (2.0-8.3); Neutrophils Percent Auto 63.3 % (45-73); Nitrite Urine Negative (Negative); Platelet Count 336 X10*3/uL (160-400); Red Blood Count 4.05 X10*6/uL (4.20-5.50); Red Cell Distribution Width 19.7 % (11.0-16.0); Specific Gravity - Urine 1.015 (1.005-1.025); UMIC TRIGGER UACC YES; Urine Blood Large (3+) (Negative); Urine Ketones Negative (Negative); Urine Protein 30 (1+) mg/dL (Neg-Trace); White Blood Count 11.6 X10*3/uL (4.8-10.8)
[2024-05-10 18:21] LABS: Prothrombin Time 12.4 SEC (11.1-13.3)
[2024-05-10 18:51] LABS: Bacteria Urine None Seen (None Seen); Other Crystals Urine Present; RBC Urine >20 /HPF (0-2); Squamous Epithelial Cell Urine 0-2 /HPF (0-2); WBC Urine 0-5 /HPF (0-5)
[2024-05-10 18:56] LABS: Alanine Aminotransferase 25 U/L (0-31); Alkaline Phosphatase 97 U/L (39-117); Anion Gap 13 (12-20); Aspartate Amino Transferase 21 U/L (5-31); Bilirubin Total 0.2 mg/dL (0.0-1.0); Blood Urea Nitrogen 9 mg/dL (9-16); Calcium 9.5 mg/dL (8.4-10.2); Carbon Dioxide 25 mmol/L (22-29); Chloride 106 mmol/L (96-108); Creatinine Clr Calc Pharmacy 108.9; Estimated Glomerular Filt Rate > 60; Glucose Random 109 mg/dL (60-115); Potassium 3.6 mmol/L (3.3-5.1); Sodium 140 mmol/L (135-145); Total Protein 7.5 g/dL (6.5-8.0)
[2024-05-10] MEDS: cephALEXin 500 MG CAPSULE PO (19:09)
[2024-05-10] MEDS: Ibuprofen 600 MG TABLET PO (19:09)
[2024-05-10] MEDS: Doxycycline Monohydrate 100 MG CAPSULE PO (19:09)
[2024-05-10 19:13] VITALS: BP 189/73; PULSE 86; RESP 18; TEMP 36.9; O2SAT 99
== END 2024-05-10 19:14 | disposition home or self-care (01) ==
PROVIDERS: Physician Assistant; Emergency Provider Emergency Medicine; PCP Internal Medicine
DX: L03.115 Cellulitis of right lower limb (principal); R60.0 Localized edema; Z79.899 Other long term (current) drug therapy
CPT/HCPCS: 36415; 80053; 81001; 85025; 85610; 93971; 99283; 99284

== ENCOUNTER 2024-05-23 09:22 | Outpatient (AMB) | payer OTHER, SELFPAY ==
[2024-05-23 09:25] VITALS: BP 164/90; BMI 30.6
--- NOTE | 2024-05-23 09:25 | A.OFFPC_ITS ---
Vital Signs 05/23/24 09:25 05/23/24 13:15 Height 5 ft 10 in Weight 213 lb BMI 30.6 BP 164/90 H 160/90 H Blood Pressure Location Lt brachial Lt brachial Position Sitting Sitting Intake Visit Reasons: ED F/U C 04/24/24 CHEST PAIN Shoe Maker Required: No Accompanied by: Self / Same As Patient Allergies gluten [GLUTEN] Allergy (Intermediate, Verified 05/23/24 09:53) HIVES ciprofloxacin [From CIPRO] Allergy (Unknown, Verified 05/23/24 09:53) Rash PEPPERS Allergy (Severe, Uncoded 05/23/24 09:53) HIVES Medication List - Last Reconciled 05/23/24 by Madhavi Mc MD acetaminophen (Tylenol Extra Strength) 1,000 mg (2 x 500 mg) PO Q6H PRN albuterol sulfate 90 mcg/actuation 2 puffs inhalation Q4-6H PRN amlodipine 2.5 mg PO DAILY 90 days ascorbic acid (vitamin C) 250 mg PO DAILY blood pressure test kit-large ([employer] Blood Pressure Monitor kit) As directed cholecalciferol (vitamin D3) 50 mcg PO DAILY ferrous sulfate 325 mg PO BID ibuprofen 600 mg PO Q8H PRN lisinopril 40 mg PO DAILY 90 days loratadine 10 mg PO DAILY 30 days polyethylene glycol 3350 (Miralax) 238 grams PO ONCE Tobacco use date assessed: 09/23/23 Dental Screening Dental Screen Date: 09/23/23 HPI HPI Comments History of Present Illness Details This is a 48-year-old female with hypertension, impaired glucose tolerance, microcytic anemia and leg edema that comes today as a hospital discharge follow-up that happened at the end of last month due to an episode of chest pain and right leg edema with erythema diagnosed with cellulitis. Completed antibiotics. Feels markedly improved but still has some bilateral leg edema and I will discontinue amlodipine and start her on chlorthalidone for her blood pressure. Blood pressure will be recheck in 3 weeks by nurse navigator. Fasting blood glucose was elevated and this will be monitor. Had anemia and this will also be monitor. [facility] Medical History (Updated 05/23/24 @ 13:11 by Madhavi Mc MD) At high risk for breast cancer Goiter Allergic rhinitis Impaired glucose tolerance Essential hypertension Surgical History History of tonsillectomy and adenoidectomy Family History Mother Hypertension CVD (cardiovascular disease) Breast cancer Pacemaker Father Hypertension Diabetes Parkinson's disease Brother In good health Brother In good health Son In good health Son In good health Daughter In good health Family/Other Chronic mental illness Family/Other Prostate cancer Family/Other Ovarian cancer Family/Other Ovarian cancer Social History Household Members: Spouse Housing: House Alcohol intake: never Patient Tobacco Use Status: Never used Tobacco e-Cigarette/Vaping Use: Never Used Second Hand Smoke Exposure: No service: No Current occupational status: unemployed Cognitive needs: No Hearing needs: No Vision needs: No Female Reproductive History Menstrual Age of Menarche: 9 Questionnaire Thrive Questionnaire Date Thrive assessed: 09/23/23 CHELE-7 AMB Questionnaire CHELE-7 Date CHELE - 7 assessed: 09/23/23 Source: Developed by Drs. Aquiles Damian, Sharyn Sung, Richy Maguire and colleagues, with an educational no from [employer]. Review of Systems Const All systems reviewed & are unremarkable except as noted in HPI and below Card Denies chest pain at rest, Denies chest pain with activity, Denies edema, Denies irregular heart rhythm, Denies claudication, Denies dyspnea, Denies dyspnea on exertion, Denies orthopnea, Denies paroxysmal nocturnal dyspnea and Denies slow heart rate Resp Denies cough, Denies dyspnea and Denies dyspnea on exertion GI Denies abdominal pain, Denies change in bowel habits, Denies excessive flatus, Denies nausea and Denies vomiting Physical exam (Primary Care) Vital Signs: Last Vital Signs BP 164/90 H 05/23/24 09:25 BMI result Body Mass Index 30.6 BMI Assessment/Plan discussion: High BMI High, discussed plan: lifestyle, weight reduction, dietary and physical activity Tobacco/Smoking Status: Tobacco use Status Tobacco use date assessed 09/23/23 05/23/24 09:33 Patient Tobacco Use Status Never used Tobacco 05/23/24 09:33 e-Cigarette/Vaping Use Never Used 05/23/24 09:33 Thrive Assessment: Date of Thrive Assessment Date Thrive assessed 09/23/23 05/23/24 09:33 Resp Effort & Inspection: normal respiratory effort Auscultation: clear to auscultation bilaterally Cardio Jugular venous distension: no JVD Rate: regular rate Rhythm: regular rhythm Heart sounds: S1 normal heart sound present and S2 normal heart sound present Extrem General: Yes full ROM Right lower extremity: lower leg Details: pitting edema Details: 1+ Left lower extremity: lower leg Details: pitting edema Details: 1+ Assessment and Plan Assessment & Plan (1) Essential hypertension: Code(s): I10 - Essential (primary) hypertension Plan: Continue lisinopril. Discontinue amlodipine. Start chlorthalidone. Blood pressure goal is equal or less than 130/80. Recheck blood pressure with nurse navigator in 3 weeks. (2) Impaired glucose tolerance: Code(s): R73.02 - Impaired glucose tolerance (oral) Plan: Monitor blood glucose. Follow a low carbohydrate diet. (3) Leg edema: Code(s): R60.0 - Localized edema Plan: Discontinue amlodipine. Start compression stockings as needed. (4) Microcytic anemia: Code(s): D50.9 - Iron deficiency anemia, unspecified Plan: Repeat hemoglobin. Orders: Orders Complete Blood Count Auto Diff Today D64.9 - Anemia, unspecified IRON PROFILE Today D64.9 - Anemia, unspecified Hemoglobin Electrophoresis Today D50.9 - Iron deficiency anemia, unspecified Vitamin B12 and Folate Today E53.8 - Deficiency of other specified B group vitamins Celiac Disease Panel Today D64.9 - Anemia, unspecified, Z91.018 - Allergy to other foods Medications: New chlorthalidone 25 mg PO DAILY 90 days 90 tabs 1RF Discontinued amlodipine Discontinued Reason: Patient Completed Course 2.5 mg PO DAILY 90 days 90 tabs 0RF I10 - Essential (primary) hypertension Coding Level of Care Code Est Pt Level 4 (57671) Complex EM visit Add On G2211 Diagnoses Essential hypertension I10 Impaired glucose tolerance R73.02 Leg edema R60.0 Microcytic anemia D50.9 Time Spent (min) 23
[2024-05-23 13:15] VITALS: BP 160/90
== END 2024-05-23 10:02 | disposition home or self-care (01) ==
PROVIDERS: PCP Internal Medicine; Visit Provider Internal Medicine
DX: I10 Essential (primary) hypertension (principal); R73.02 Impaired glucose tolerance (oral); R60.0 Localized edema; D50.9 Iron deficiency anemia, unspecified
CPT/HCPCS: 99214; G2211

== ENCOUNTER → 2024-08-25 10:00 | Outpatient (BNV) | payer OTHER, SELFPAY | PROVIDERS: Visit Provider Internal Medicine | DX: Z12.31 Encounter for screening mammogram for malignant neoplasm of breast (principal) | CPT/HCPCS: 77063; 77067 ==

== ENCOUNTER 2024-08-25 10:06 | Outpatient (REF) | payer OTHER, SELFPAY ==
--- NOTE | ~2024-08-25 | MM_ITS ---
EXAMINATION: MM SCREENING DIGITAL BREAST TOMOSYNTHESIS, BILATERAL CLINICAL INFORMATION: Screening. Asymptomatic. Patient states right breast palpable lump during screening examination. COMPARISON: Mammography: Comparison is made with available priors TECHNIQUE: Digital breast mammography with tomosynthesis is performed in both the craniocaudal and mediolateral oblique views along with computer-aided detection (CAD). FINDINGS: There are scattered areas of fibroglandular density (ACR BI-RADS breast composition Category b). Right: BB marker in the superior right breast on MLO view without underlying abnormality. No suspicious calcifications masses or other abnormal findings. Left: There are no significant masses, abnormal calcifications, or other abnormalities. MM/MM tomosynthesis screening BI IMPRESSION: No mammographic evidence of malignancy. Right breast palpable lump superior breast on MLO view without underlying abnormality on mammogram. Recommend ultrasound at this time for further evaluation. ASSESSMENT: BI-RADS BI-RADS 0 - Incomplete: Needs additional Imaging. RECOMMENDATION: . Additional views of the right breast with ultrasound. . Radiology department staff will contact the patient for additional imaging. Additional Imaging required This examination should not preclude the clinical evaluation of a suspicious palpable abnormality. This patient's information was entered into a reminder system with a target due date for their next mammogram. Electronically signed by: Hilda Hunt DO 08/29/2024 03:19 PM [facility]
--- OUTSIDE RECORDS SUMMARY | 2024-08-25 10:14 | XMS_ITS | Patient Health Record ---
Author Organization [facility] Address [address], [place] [id number] Support Name Relationship Address Phone Liz Carter Emergency Contact Unknown Tracey Contreras Guarantor Unknown Unavailable Reason For Referral No Information Problems Problem Type SNOMED Code ICD Code Onset Dates Problem Status W/U Status Risk Notes Problem Obesity (480789925) OBESITY NOS BMI 30.0-39.9 (278.00) Active confirmed Plan Of Treatment No Information Medical (General) History Medical History History ICD Code thyroid problems obesity
== END 2024-08-25 10:07 | disposition home or self-care (01) ==
LOC: HO.MAMMO 10:06
PROVIDERS: Visit Provider Internal Medicine
DX: Z12.31 Encounter for screening mammogram for malignant neoplasm of breast (principal)
CPT/HCPCS: 77063; 77067

== ENCOUNTER 2024-09-29 09:27 | Outpatient (AMB) | payer OTHER, SELFPAY ==
[2024-09-29 09:33] VITALS: BP 136/84; BMI 30.1
--- NOTE | 2024-09-29 09:33 | A.OFFPC_ITS ---
Vital Signs 09/29/24 09:33 Height 5 ft 10 in Weight 210 lb BMI 30.1 BP 136/84 Blood Pressure Location Lt brachial Position Sitting Intake Visit Reasons: Annual Exam Intake Note: Patient here for a physical exam Computer Support Technician Required: Yes Computer Support Technician Language: Ambulatory Service Representative Name: Madhavi Mc MD Information Interpreted: non-clinical & clinical Accompanied by: Self / Same As Patient Allergies gluten [GLUTEN] Allergy (Intermediate, Verified 09/29/24 09:47) HIVES ciprofloxacin [From CIPRO] Allergy (Unknown, Verified 09/29/24 09:47) Rash PEPPERS Allergy (Severe, Uncoded 09/29/24 09:47) HIVES Medication List - Last Reconciled 09/29/24 by Madhavi Mc MD acetaminophen (Tylenol Extra Strength) 1,000 mg (2 x 500 mg) PO Q6H PRN albuterol sulfate 90 mcg/actuation 2 puffs inhalation Q4-6H PRN ascorbic acid (vitamin C) 250 mg PO DAILY blood pressure test kit-large ([employer] Blood Pressure Monitor kit) As directed chlorthalidone 25 mg PO DAILY 90 days cholecalciferol (vitamin D3) 50 mcg PO DAILY ferrous sulfate 325 mg PO BID ibuprofen 600 mg PO Q8H PRN lisinopril 40 mg PO DAILY 90 days loratadine 10 mg PO DAILY 30 days polyethylene glycol 3350 (Miralax) 238 grams PO ONCE Tobacco use date assessed: 09/29/24 Dental Screening Dental Screen Date: 09/29/24 Did you have a dental visit in the last 12 months?: Yes Did you have a dental problem in the last 6 months where you did not have access to dental care?: No Was dental information given to patient?: Patient has dentist HPI HPI Comments History of Present Illness Details This is a 49-year-old female that comes for her physical exam. Mammogram done last month showing a right breast palpable mass and ultrasound of the breast and mammogram diagnostic has been ordered. Pap smear done 2022 was normal with HPV negative. Was going to have a colonoscopy but had to cancel it and I will refer her through open access again. Complains of blurry vision and would like to see Ophthalmology. Has anemia and hemoglobin will be monitor. Tdap vaccine was done 2009 but she declines it today. [facility] Medical History (Updated 09/29/24 @ 10:07 by Madhavi Mc MD) At high risk for breast cancer Goiter Allergic rhinitis Impaired glucose tolerance Essential hypertension Surgical History History of tonsillectomy and adenoidectomy Family History Mother Hypertension CVD (cardiovascular disease) Breast cancer Pacemaker Father Hypertension Diabetes Parkinson's disease Brother In good health Brother In good health Son In good health Son In good health Daughter In good health Family/Other Chronic mental illness Family/Other Prostate cancer Family/Other Ovarian cancer Family/Other Ovarian cancer Social History Household Members: Spouse Housing: House Alcohol intake: never Patient Tobacco Use Status: Never used Tobacco e-Cigarette/Vaping Use: Never Used Second Hand Smoke Exposure: No service: No Current occupational status: unemployed Cognitive needs: No Hearing needs: No Vision needs: No Female Reproductive History Menstrual Age of Menarche: 9 Questionnaire PHQ-9 Over the last 2 weeks, how often have you been bothered by any of the following problems? 1. Little interest or pleasure in doing things: not at all 2. Feeling down, depressed, or hopeless: not at all 3. Trouble falling or staying asleep, or sleeping too much: not at all 4. Feeling tired or having little energy: not at all 5. Poor appetite or overeating: not at all 6. Feeling bad about yourself - or that you are a failure or have let yourself or your family down: not at all 7. Trouble concentrating on things, such as reading the newspaper or watching television: not at all 8. Moving or speaking so slowly that other people could have noticed. Or the opposite - being so fidgety or restless that you have been moving around a lot more than usual: not at all 9. Thoughts that you would be better off or of hurting yourself in some way: not at all Total score: 0 Depression Screening Interpretation: Negative Depression Screening Done: Yes 16358 - PHQ-9 Billing: Yes Source: Developed by Drs. Aquiles Damian, Sharyn Sung, Richy Maguire and colleagues, with an educational no from [employer]. Thrive Questionnaire Date Thrive assessed: 09/29/24 I am a: Patient What is your living situation today?: I have a steady place to live Within the past 12 months, did the food you bought not last and you didn't have the money to get more?: I choose not to answer this question Within the past 12 months, did you worry whether your food would run out before you got money to buy more?: I choose not to answer this question Do you have trouble paying for medicines?: No Do you have trouble getting transportation to medical appointments?: No Do you have trouble paying your heating and electricity bill?: No Do you have trouble taking care of your child, family member or friend?: No Do you have trouble with day-to-day activities such as bathing, preparing meals, shopping, managing finances, etc.?: No Are you currently unemployed and looking for a job?: I choose not to answer this question Are you interested in more education?: No Please select the resources that you would like help with: None Currently or been in a relationship where the following occur: No concerns repo rted THRIVE Score: 0 AUDIT C Alcohol Use Questionnaire (AUDIT-C) 1. How often do you have a drink containing alcohol?: Never Total Score: 0 Score Reviewed/Action Taken: No CHELE-7 AMB Questionnaire CHELE-7 Date CHELE - 7 assessed: 09/29/24 Feeling nervous, anxious, or on edge: 0 = Not at all Not being able to stop or control worryin = Not at all Worrying too much about different things: 0 = Not at all Trouble relaxin = Not at all Being so restless that it is hard to sit still: 0 = Not at all Becoming easily annoyed or irritable: 0 = Not at all Feeling afraid as if something awful might happen: 0 = Not at all Total CHELE-7 score (0-4 normal; 5-9 mild; 10-14 moderate; 15-21 severe): 0 Source: Developed by Drs. Aquiles Damian, Sharyn Sung, Richy Maguire and colleagues, with an educational no from [employer]. CHELE-7 Assessment Billing CHELE-7 Assessment Tool: CHELE-7 Assessment 96356 Review of Systems Const All systems reviewed & are unremarkable except as noted in HPI and below Card Denies chest pain at rest, Denies chest pain with activity, Denies edema, Denies irregular heart rhythm, Denies claudication, Denies dyspnea, Denies dyspnea on exertion, Denies orthopnea, Denies paroxysmal nocturnal dyspnea and Denies slow heart rate Resp Denies cough, Denies dyspnea and Denies dyspnea on exertion GI Denies abdominal pain, Denies change in bowel habits, Denies excessive flatus, Denies nausea and Denies vomiting Neuro Denies behavioral changes and Denies lack of coordination Psych Denies behavioral changes Physical exam (Primary Care) Vital Signs: Last Vital Signs BP 136/84 09/29/24 09:33 BMI result Body Mass Index 30.1 BMI Assessment/Plan discussion: High BMI High, discussed plan: lifestyle, weight reduction, dietary and physical activity Tobacco/Smoking Status: Tobacco use Status Tobacco use date assessed 09/29/24 09/29/24 09:38 Patient Tobacco Use Status Never used Tobacco 09/29/24 09:38 e-Cigarette/Vaping Use Never Used 09/29/24 09:38 PHQ-9: PHQ-9 Score PHQ-9: Total score 0 09/29/24 09:50 Depression Screening Interpretation: Negative Thrive Assessment: Date of Thrive Assessment Date Thrive assessed 09/29/24 09/29/24 09:38 Currently or been in a relationship where the following occur: No concerns reported [facility] Head: Yes normal to inspection, Yes normocephalic and Yes atraumatic Ears: external ears normal Eyes General: appearance normal, both eyes and all related structures Eyelids: Yes eyelids normal Conjunctivae: conjunctivae normal Neck Neck: Yes normal visual inspection and Yes supple Resp Effort & Inspection: normal respiratory effort Auscultation: clear to auscultation bilaterally Cardio Jugular venous distension: no JVD Rate: regular rate Rhythm: regular rhythm Heart sounds: S1 normal heart sound present and S2 normal heart sound present GI Inspection: Yes normal to inspection Palpation (GI): Soft to palpation and nontender Auscultation: normal bowel sounds Skin General skin exam: no rashes or lesions noted Neuro General: no focal motor deficits Extrem General: Yes full ROM Psych Appearance: grossly normal Office Procedures Flu Questionnaire Does the patient have a severe egg allergy?: No Immunizations Fluarix Triv 9800-7422 (PF) 45 mcg (15 mcg x 3)/0.5 mL IM syringe Performing Provider: Madhavi Mc MD [place] [facility] Documented (not given) by: TARA Grove on 09/29/24 09:39 Reason Not Given: Patient Refused Coding Level of Care Code Est Pt Level 3 (64613) Est Pt Prev Care 40-64y(54243) Diagnoses Physical exam Z00.00 Iron deficiency anemia due to chronic blood loss D50.0 Breast mass, right N63.10 Blurry vision H53.8 Additional Codes CHELE-7 Assessment Billing - CHELE-7 Assessment Tool: CHELE-7 Assessment 62310 ([id number]) PHQ-9 - 93008 - PHQ-9 Billing: Yes ([id number]) Time Spent (min) 33 Assessment & Plan Assessment & Plan (1) Physical exam: Code(s): Z00.00 - Encounter for general adult medical examination without abnormal findings Category: Medical (2) Iron deficiency anemia due to chronic blood loss: Code(s): D50.0 - Iron deficiency anemia secondary to blood loss (chronic) Category: Medical (3) Breast mass, right: Code(s): N63.10 - Unspecified lump in the right breast, unspecified quadrant Category: Medical (4) Blurry vision: Code(s): H53.8 - Other visual disturbances Category: Medical Plan Physical exam to be repeated in a year. Referred to Ophthalmology for blurry vision. Ultrasound of the breast and mammogram diagnostic for right breast mass. Monitor hemoglobin for her anemia. Orders: Orders Complete Blood Count Auto Diff Today D64.9 - Anemia, unspecified Vitamin D 25-OH Total Today E55.9 - Vitamin D deficiency, unspecified Comprehensive [place]. Panel Fast Today Z00.00 - Encounter for general adult medical examination without abnormal findings US breast RT complete Today N63.10 - Unspecified lump in the right breast, unspecified quadrant MM diagnostic mammo unilat RT Today N63.10 - Unspecified lump in the right breast, unspecified quadrant Celiac Diagnostic Gliadin TTG Today Z91.018 - Allergy to other foods Endomysial IgA rflx Titer Today Z91.018 - Allergy to other foods Influenza 0499-0947 Immunization Today Z23 - Encounter for immunization IRON PROFILE Today D64.9 - Anemia, unspecified Vitamin B12 and Folate Today E53.8 - Deficiency of other specified B group vitamins Lipid Panel Today Z00.00 - Encounter for general adult medical examination without abnormal findings Transglutaminase IgA Today Z91.018 - Allergy to other foods Referrals Open Access Screening Colonoscopy Referral Z12.12 - Encounter for screening for malignant neoplasm of rectum Ophthalmology Referral H53.8 - Other visual disturbances
== END 2024-09-29 10:02 | disposition home or self-care (01) ==
PROVIDERS: PCP Internal Medicine; Visit Provider Internal Medicine
DX: Z00.00 Encounter for general adult medical examination without abnormal findings (principal); D50.0 Iron deficiency anemia secondary to blood loss (chronic); N63.10 Unspecified lump in the right breast, unspecified quadrant; H53.8 Other visual disturbances

== ENCOUNTER → 2024-09-29 09:27 | Outpatient (BNVA) | payer OTHER, SELFPAY | PROVIDERS: PCP Internal Medicine; Visit Provider Internal Medicine | DX: Z00.00 Encounter for general adult medical examination without abnormal findings (principal); D50.0 Iron deficiency anemia secondary to blood loss (chronic); N63.10 Unspecified lump in the right breast, unspecified quadrant; H53.8 Other visual disturbances | CPT/HCPCS: 96127; 99212; 99396 ==

== ENCOUNTER 2024-10-22 19:00 | Emergency (ER) | payer OTHER, SELFPAY ==
--- NOTE | ~2024-10-22 | XR_ITS ---
CLINICAL HISTORY: cough 2 view chest x-ray Comparison: CT/SR - CT ANGIO CHEST PE PROTOCOL - 04/24/24 22:02 EDT CR/SR - XR CHEST 2V - 04/24/24 20:24 EDT Findings: The lungs are clear. Normal size heart. No acute fracture. IMPRESSION: 1. No acute findings. This document has been electronically signed by: Nathan Doss MD on 10/22/2024 20:51:40
[2024-10-22 19:25] VITALS: BP 141/77; PULSE 97; RESP 21; TEMP 37.1; O2SAT 97; BMI 31.1
--- NOTE | 2024-10-22 19:26 | ED_ITS ---
HPI - General Adult General Chief complaint: Upper Respiratory Symptoms Stated complaint: congestion and fever Time Seen by Provider: 10/22/24 20:23 Source: patient Mode of arrival: ambulatory Limitations: no limitations History of Present Illness ED Provider: Dr. Jocelyn Tavarez HPI narrative: patient comes to the emergency room complaining of productive cough, sore throat that started today. Patient has noticed the for the last 3 days she has been having a growing lymph node in the left side of the neck. Patient stated hurts a bit. Patient reports fatigue and generalized malaise. Related Data Previous Rx's ?Medication ?Instructions ?Recorded loratadine 10 mg tablet 10 mg PO DAILY 30 days #30 tabs 07/29/23 albuterol sulfate 90 mcg/actuation 2 puff inhalation Q4-6H PRN 10/17/23 aerosol inhaler shortness of breath or wheezing #6.7 grams polyethylene glycol 3350 17 238 g PO ONCE #238 grams 12/14/23 gram/dose oral powder (Miralax) acetaminophen 500 mg tablet 1,000 mg (2 x 500 mg) PO Q6H PRN 12/16/23 (Tylenol Extra Strength) pain #14 tabs lisinopril 40 mg tablet 40 mg PO DAILY 90 days #90 tabs 04/26/24 ascorbic acid (vitamin C) 250 mg 250 mg PO DAILY #60 tabs 05/01/24 tablet blood pressure test kit-large #1 ea 05/01/24 ([employer] Blood Pressure Monitor kit) ferrous sulfate 325 mg (65 mg 325 mg PO BID #60 tabs 05/01/24 iron) tablet ibuprofen 600 mg tablet 600 mg PO Q8H PRN pain #14 tabs 05/10/24 chlorthalidone 25 mg tablet 25 mg PO DAILY 90 days #90 tabs 05/23/24 cholecalciferol (vitamin D3) 50 50 mcg PO DAILY #90 tabs 08/05/24 mcg (2,000 unit) tablet acetaminophen 500 mg tablet 500 mg PO Q6H PRN fever or pain 10/22/24 #20 tabs oseltamivir 75 mg capsule (Tamiflu) 75 mg PO BID 5 days #9 caps 10/22/24 Allergies Allergy/AdvReac Type Severity Reaction Status Date / Time gluten [GLUTEN] Allergy Intermediate HIVES Verified 10/22/24 19:25 ciprofloxacin [From CIPRO] Allergy Unknown Rash Verified 10/22/24 19:25 PEPPERS Allergy Severe HIVES Uncoded 10/22/24 19:25 Review of Systems Review of Systems: Constitutional : No Weight loss, complaining of subjective fever, chills fatigue and generalized malaise ENT/Mouth : No Hearing loss, No Ear Pain, No Nasal Congestion, No Sinus Pain, No Hoarseness, No sore throat, No Rhinorrhea, No Swallowing Difficulty Eyes: No Eye Pain, No Swelling, No Redness, No Foreign Body, No Discharge, No Vision Changes Cardiovascular : No Chest Pain, No SOB, No Dyspnea on Exertion, No Orthopnea, No Edema, No Palpitations Respiratory complaining of dry cough,, No Wheezing, No Smoke Exposure, No Dyspnea Gastrointestinal : No Nausea, No Vomiting, No Diarrhea, No Constipation, No abdominal Pain, No Hematochezia, No Melena Genitourinary : no irregular bleeding, No Dysuria, No Urinary Frequency, No Hematuria, No Urinary Incontinence, No Urgency, No Flank Pain, No Urinary Flow Changes, No Hesitancy Musculoskeletal : No joint pain, No Myalgias, No Joint Swelling Skin : No Skin Lesions, No rash Neuro : No Weakness, No Numbness, No Paresthesias, No Loss of Consciousness, No Dizziness, No Headache Psych : No Anxiety/Panic, No Depression, No SI/HI/AH/VH, No Social Issues, Heme/Lymph: No Bruising, No Bleeding, Complaining of lymphadenopathy on the left side of the neck for 3 days Endocrine : No Polyuria, No Polydipsia, No Temperature Intolerance PMFSH Past Medical History Medical History At high risk for breast cancer Goiter Allergic rhinitis Impaired glucose tolerance Essential hypertension Surgical History History of tonsillectomy and adenoidectomy Family History Family History Mother Hypertension CVD (cardiovascular disease) Breast cancer Pacemaker Father Hypertension Diabetes Parkinson's disease Brother In good health Brother In good health Son In good health Son In good health Daughter In good health Family/Other Chronic mental illness Family/Other Prostate cancer Family/Other Ovarian cancer Family/Other Ovarian cancer Social History Social History Household Members: Spouse Housing: House Alcohol intake: never Patient Tobacco Use Status: Never used Tobacco e-Cigarette/Vaping Use: Never Used Second Hand Smoke Exposure: No Advance Directives: No Advance Directives Information Provided: No Do you have a plan to hurt others: No Plan service: No Current occupational status: unemployed Cognitive needs: No Hearing needs: No Vision needs: No Physical Exam ED Vital Signs: Vital Signs - 24 hr 10/22/24 19:25 10/22/24 20:24 Temperature 98.7 F 98.4 F Pulse Rate 97 92 Respiratory Rate 21 H 14 Blood Pressure 141/77 H 135/73 Pulse Oximetry 97 98 Oxygen Delivery Method Room Air Room Air BMI result Body Mass Index 31.1 Const Other: Appearance: Alert. Oriented X3. No acute distress. Eyes: Pupils equal, round and reactive to light. ENT: Pharynx normal. Neck: Normal inspection. Neck supple. No lymph nodes noted. No crepitus CVS: Normal heart rate and rhythm. Pulses normal. Normal S1 and S2 Respiratory: No respiratory distress. Breath sounds normal. No Wheezing. occasional bilateralrales Abdomen: Soft and nontender. No rigidity. No distention. Skin: Skin warm and dry. Normal skin color. Normal skin turgor. Extremities: No lower extremity edema. No Lacerations. No Rash Neuro: Oriented X 3. No motor deficit. No sensory deficit. Moving all extremities. No slurred speech. CN 2 through 12 grossly intact Psych: calm, cooperative, normal affect Course Course Course Narrative: RME performed by Connie Hayden PA-C. Patient is a 49 year old assigned f emale at presenting to the emergency department with congestion and cough. Detailed physical exam and review of systems are deferred to the nail artist. Imaging and swabs ordered. Patient placed back in the waiting room pending room availability and results. Medical Decision Making Medical Decision Making MDM Narrative: patient's oxygen saturation 100%, no O2 desaturation with ambulation in patient's room. My interpretation of labs: Patient's serology positive for influenza B chest x-ray my interpretation no acute abnormality, no infiltrates patient was given the 1st dose of Tamiflu, patient has had influenza symptoms for 1 day. Differential Diagnosis Differential Diagnoses: The differential diagnosis associated with the presentation includes ( Influenza, COVID, RSV, pneumonia) Lab Data [facility] Lab Attestation statement: I reviewed the patient's lab results. Labs: Lab Results 10/22/24 Range/Units 19:33 Influenza Type A (PCR) NEGATIVE (Negative) Influenza Type B (PCR) POSITIVE A (Negative) RSV RNA Qual (PCR) NEGATIVE (Negative) SARS-CoV-2 RNA (RT-PCR) NEGATIVE (Negative) S. pyogenes GrpA KAM Negative (Negative) Independent Interpretation I performed an independent interpretation of an: Plain X-Ray ( radiology report is not back yet) Discharge Plan Discharge Clinical Impression: Influenza Patient Disposition: Home, Self-Care Instructions: Influenza (ED) Additional Instructions: Please follow-up with your primary care physician tomorrow. If you have any worsening or new symptoms, please return to the emergency room or call 911 Prescriptions: New oseltamivir [Tamiflu] 75 mg capsule 75 mg PO BID 5 Days Qty: 9 0RF acetaminophen 500 mg tablet 500 mg PO Q6H PRN (Reason: fever or pain) Qty: 20 0RF No Action loratadine 10 mg tablet 10 mg PO DAILY 30 Days Qty: 30 6RF lisinopril 40 mg tablet 40 mg PO DAILY 90 Days Qty: 90 1RF (DME) blood pressure test kit-large [[employer] BP Monitor] Kit See Rx Instructions .Route Qty: 1 0RF Rx Instructions: As directed ferrous sulfate 325 mg (65 mg iron) tablet 325 mg PO BID Qty: 60 6RF ascorbic acid (vitamin C) 250 mg tablet 250 mg PO DAILY Qty: 60 0RF cholecalciferol (vitamin D3) 50 mcg (2,000 unit) tablet 50 mcg PO DAILY Qty: 90 0RF albuterol sulfate 90 mcg/actuation HFA aerosol inhaler 2 puff inhalation Q4-6H PRN (Reason: shortness of breath or wheezing) Qty: 6.7 0RF ibuprofen 600 mg tablet 600 mg PO Q8H PRN (Reason: pain) Qty: 14 0RF chlorthalidone 25 mg tablet 25 mg PO DAILY 90 Days Qty: 90 1RF polyethylene glycol 3350 [Miralax] 17 gram/dose powder 238 g PO ONCE Qty: 238 0RF Rx Instructions: take as directed by GI office acetaminophen [Tylenol Extra Strength] 500 mg tablet 1,000 mg PO Q6H PRN (Reason: pain) Qty: 14 0RF Print Language: [place]ese
[2024-10-22 19:57] LABS: IDNOW Serial# 58CA691E; Strep A Nucleic Acid Negative (Negative)
[2024-10-22 20:23] LABS: Influenza A PCR NEGATIVE (Negative); Influenza B PCR POSITIVE (Negative); Resp Syncy Virus RNA Qual PCR NEGATIVE (Negative); SARS COV2 PCR INHOUSE NEGATIVE (Negative)
[2024-10-22 20:24] VITALS: BP 135/73; PULSE 92; RESP 14; TEMP 36.9; O2SAT 98
[2024-10-22] MEDS: Benzonatate 100 MG CAPSULE PO (21:40)
[2024-10-22] MEDS: Acetaminophen 325 MG TABLET 650 MG PO (21:40)
[2024-10-22] MEDS: Oseltamivir Phosphate 75 MG CAPSULE PO (21:40)
[2024-10-22 21:42] VITALS: O2SAT 96
[2024-10-22 21:44] VITALS: BP 118/76; PULSE 99; RESP 20; TEMP 36.6; O2SAT 96
== END 2024-10-22 21:46 | disposition home or self-care (01) ==
PROVIDERS: Physician Assistant Medical; Emergency Provider Emergency Medicine; PCP Internal Medicine
DX: J10.1 Influenza due to other identified influenza virus with other respiratory manifestations (principal); R05.9 Cough, unspecified; Z03.818 Encounter for observation for suspected exposure to other biological agents ruled out
CPT/HCPCS: 0241U; 71046; 87651; 99283; 99284

== ENCOUNTER → 2024-10-22 19:30 | Outpatient (BNV) | payer OTHER, SELFPAY | PROVIDERS: Emergency Provider Emergency Medicine; PCP Internal Medicine; Visit Provider Radiology Diagnostic Radiology | DX: R05.9 Cough, unspecified (principal) | CPT/HCPCS: 71046 ==

== ENCOUNTER 2024-11-19 09:02 | Outpatient (REF) | payer OTHER, SELFPAY ==
[2024-11-19 09:59] LABS: MANUAL DIFF FLAG NO
[2024-11-19 10:33] LABS: Basophils Percent Auto 0.3 % (0-2); Eosinophils Absolute Auto 0.3 X10*3/uL (0.0-0.4); Eosinophils Percent Auto 2.6 % (0-4); Hematocrit 31.6 % (37.0-47.0); Hemoglobin 9.1 g/dl (12.0-16.0); Imm Gran Abs Auto 0.04 X10*3/uL (0.00-0.03); Imm Gran Pct Auto 0.4 % (0.0-0.4); Lymphocytes Absolute Auto 2.8 X10*3/uL (1.2-4.9); Lymphocytes Percent Auto 28.5 % (20-40); Mean Corpuscular HGB Conc 28.8 g/dl (31.0-35.0); Mean Corpuscular Hemoglobin 19.4 pg (27.0-33.0); Mean Corpuscular Volume 67.2 fL (80.0-98.0); Mean Platelet Volume 10.8 fL (9.4-12.3); Monocytes Absolute Auto 0.8 X10*3/uL (0.1-1.2); Monocytes Percent Auto 7.6 % (2-11); Neutrophils Percent Auto 60.6 % (45-73); Platelet Count 324 X10*3/uL (160-400); Red Cell Distribution Width 20.3 % (11.0-16.0)
[2024-11-19 11:17] LABS: Alanine Aminotransferase 90 U/L (0-31); Alkaline Phosphatase 110 U/L (39-117); Anion Gap 12 (12-20); Aspartate Amino Transferase 72 U/L (5-31); Bilirubin Total 0.5 mg/dL (0.0-1.0); Blood Urea Nitrogen 11 mg/dL (9-16); Calcium 9.3 mg/dL (8.4-10.2); Carbon Dioxide 24 mmol/L (22-29); Chloride 106 mmol/L (96-108); Cholesterol 139 mg/dL (<200); Estimated Glomerular Filt Rate > 60; Glucose Fasting 95 mg/dL (60-99); HDL Cholesterol 48 mg/dL (>40); Iron 20 mcg/dL (30-160); LDL Cholesterol Calculated 76 mg/dL (<100); Percent Iron Saturation 6 % (15-50); Sodium 138 mmol/L (135-145); Total Iron Binding Capacity 344 mcg/dL (228-428); Total Protein 7.8 g/dL (6.5-8.0); Triglycerides 77 mg/dL (<150); Unsaturated Iron Binding 324 ug/dL
[2024-11-19 11:21] LABS: Vitamin D 25-OH Total 17.1 ng/mL (>30)
[2024-11-19 11:30] LABS: Folate 14.4 ng/mL (> or = 4.0); Vitamin B12 573 pg/mL (200-900)
[2024-11-21 19:04] LABS: Transglutaminase IgA <1.0 U/mL
[2024-11-24 14:53] LABS: Gliadin Deamidated IgA Ab 4.4 U/mL; Gliadin Deamidated IgG Ab <1.0 U/mL; Immunoglobulin A 322 mg/dL (47-310); Transglutaminase Ab IgG 1.4 U/mL; Transglutaminase IgA <1.0 U/mL
[2024-11-25 00:24] LABS: Endomysial IgA Antibody Negative (Negative)
== END 2024-11-19 09:03 | disposition home or self-care (01) ==
LOC: HO.LAB 09:02
PROVIDERS: PCP Internal Medicine; Visit Provider Internal Medicine
DX: Z00.00 Encounter for general adult medical examination without abnormal findings (principal); Z91.018 Allergy to other foods; E53.8 Deficiency of other specified B group vitamins; D64.9 Anemia, unspecified; E55.9 Vitamin D deficiency, unspecified
CPT/HCPCS: 36415; 80053; 80061; 82306; 82607; 82746; 82784; 83540; 85025; 86231; 86258; 86364

== ENCOUNTER 2024-12-23 18:39 | Emergency (ER) | payer OTHER, SELFPAY ==
[2024-12-23 18:49] VITALS: BP 175/91; PULSE 85; RESP 20; TEMP 37; O2SAT 100; BMI 34.2
--- NOTE | 2024-12-23 18:50 | ED.URI ---
HPI - URI/Sore Throat General Chief Complaint: General Medical Stated Complaint: Unable to swallow Time Seen by Provider: 12/23/24 19:22 Source: patient Mode of arrival: ambulatory Limitations: no limitations History of Present Illness ED Provider: mel bassett NP HPI Narrative: Patient is a 49-year-old female who presents emergency department for evaluation endorsing a sore throat, painful swallowing. Sick contacts with flu B at home. Denies fevers, chills, neck pain, neck stiffness, chest pain, shortness of breath, difficulty breathing. Related Data Previous Rx's ?Medication ?Instructions ?Recorded loratadine 10 mg tablet 10 mg PO DAILY 30 days #30 tabs 07/29/23 albuterol sulfate 90 mcg/actuation 2 puff inhalation Q4-6H PRN 10/17/23 aerosol inhaler shortness of breath or wheezing #6.7 grams polyethylene glycol 3350 17 238 g PO ONCE #238 grams 12/14/23 gram/dose oral powder (Miralax) acetaminophen 500 mg tablet 1,000 mg (2 x 500 mg) PO Q6H PRN 12/16/23 (Tylenol Extra Strength) pain #14 tabs lisinopril 40 mg tablet 40 mg PO DAILY 90 days #90 tabs 04/26/24 ascorbic acid (vitamin C) 250 mg 250 mg PO DAILY #60 tabs 05/01/24 tablet blood pressure test kit-large #1 ea 05/01/24 (Fiesta Frog Blood Pressure Monitor kit) ibuprofen 600 mg tablet 600 mg PO Q8H PRN pain #14 tabs 05/10/24 chlorthalidone 25 mg tablet 25 mg PO DAILY 90 days #90 tabs 05/23/24 acetaminophen 500 mg tablet 500 mg PO Q6H PRN fever or pain 10/22/24 #20 tabs oseltamivir 75 mg capsule (Tamiflu) 75 mg PO BID 5 days #9 caps 10/22/24 cholecalciferol (vitamin D3) 50 50 mcg PO DAILY #90 tabs 11/27/24 mcg (2,000 unit) tablet ferrous sulfate 325 mg (65 mg 325 mg PO BID #60 tabs 11/27/24 iron) tablet amoxicillin 500 mg capsule 500 mg PO BID #19 caps 12/23/24 Allergies Allergy/AdvReac Type Severity Reaction Status Date / Time gluten [GLUTEN] Allergy Intermediate HIVES Verified 12/23/24 18:52 ciprofloxacin [From CIPRO] Allergy Unknown Rash Verified 12/23/24 18:52 PEPPERS Allergy Severe HIVES Uncoded 12/23/24 18:52 Review of Systems Review of Systems: Yes all other systems are reviewed and are negative [facility] Past Medical History Attestation statement: The following information was validated with the patient. Source: old records reviewed Medical History At high risk for breast cancer Goiter Allergic rhinitis Impaired glucose tolerance Essential hypertension Surgical History History of tonsillectomy and adenoidectomy Family History Family History Mother Hypertension CVD (cardiovascular disease) Breast cancer Pacemaker Father Hypertension Diabetes Parkinson's disease Brother In good health Brother In good health Son In good health Son In good health Daughter In good health Family/Other Chronic mental illness Family/Other Prostate cancer Family/Other Ovarian cancer Family/Other Ovarian cancer Social History Social History Household Members: Spouse Housing: House Alcohol intake: never Patient Tobacco Use Status: Never used Tobacco e-Cigarette/Vaping Use: Never Used Second Hand Smoke Exposure: No Advance Directives: No Advance Directives Information Provided: Yes service: No Current occupational status: unemployed Cognitive needs: No Hearing needs: No Vision needs: No Physical Exam Vital Signs: Vital Signs: Last Vital Signs Temp 98.6 F 12/23/24 18:49 Pulse 85 12/23/24 18:49 Resp 20 12/23/24 18:49 BP 175/91 H 12/23/24 18:49 Pulse Ox 100 12/23/24 18:49 O2 Del Method Room Air 12/23/24 18:49 BMI result Body Mass Index 34.2 Appearance: Alert.?Oriented to person, place and time. No acute distress.?Normal affect. Eyes: Pupils equal, round and reactive to light.? ENT: TM normal bilaterally. Pharynx mildly erythematous without exudates or tonsillar hypertrophy. No trismus. No drooling Neck: Normal inspection.? Neck supple.??No cervical adenopathy CVS: Heart sounds normal. Normal heart rate and rhythm.? Pulses normal.?? Respiratory: No respiratory distress.? Lung sounds clear to auscultation bilaterally?? Skin: Skin warm and dry.? Normal skin color.? ? Extremities: No lower extremity edema.? Neuro: Moves all extremities spontaneously. Sensation intact bilaterally. No motor deficits. Ambulates with normal steady gait. Medical Decision Making Medical Decision Making MDM Narrative: Patient is a 49 old female who presents emergency department for evaluation of sore throat. Group a strep testing is positive, on examination not consistent with RPA/FAUCET POLISHER, she received the 1st dose of antibiotic in the emergency department and will send remainder prescription to the pharmacy. COVID-19/influenza/RSV testing ___. Well-appearing, nontoxic, afebrile, no tachycardia or tachypnea/hypoxia. Speaking clear full sentences, managing secretions, able to swallow though it is painful. ambulatory with steady gait. Discussed conservative treatment including rest, hydration, Tylenol/ibuprofen as needed for fever and body aches, saline nasal spray, humidifier, [id number] cold medication. Advised to follow-up with primary care provider as needed, discussed reasons to return back to the emergency department. All questions were answered. Patient discharged home in stable condition. Differential Diagnosis Differential Diagnoses: The differential diagnosis associated with the presentation includes ( See narrative above) Admission/Observation Consideration of admission/observation: Escalation of care including admission/observation considered ( see narrative above) Lab Data [facility] Lab Attestation statement: I reviewed the patient's lab results. ( see narrative above) Labs: Lab Results 12/23/24 Range/Units 19:14 S. pyogenes GrpA KAM Positive A (Negative) External Record Review External record reviewed: Outpatient record Prescription Management I considered prescription management with: Pain Medication ( acetaminophen/ibuprofen) and Antibiotic Discharge Plan Discharge Clinical Impression: Acute streptococcal pharyngitis Patient Disposition: Home, Self-Care Instructions: Strep Throat (ED) Additional Instructions: Testing today shows that you have strep throat which is a bacterial infection. For this you will need to be treated with a course of antibiotics. A prescription for amoxicillin has been sent to take twice daily for 10 days. Saltwater gargles, sore throat sprays/lozenges from the pharmacy can be helpful as well. Follow-up with your primary care doctor. Return with any new or worsening symptoms or concerns Prescriptions: New amoxicillin 500 mg capsule 500 mg PO BID Qty: 19 0RF No Action loratadine 10 mg tablet 10 mg PO DAILY 30 Days Qty: 30 6RF lisinopril 40 mg tablet 40 mg PO DAILY 90 Days Qty: 90 1RF (DME) blood pressure test kit-large [Fiesta Frog BP Monitor] Kit See Rx Instructions .Route Qty: 1 0RF Rx Instructions: As directed ascorbic acid (vitamin C) 250 mg tablet 250 mg PO DAILY Qty: 60 0RF ferrous sulfate 325 mg (65 mg iron) tablet 325 mg PO BID Qty: 60 6RF cholecalciferol (vitamin D3) 50 mcg (2,000 unit) tablet 50 mcg PO DAILY Qty: 90 0RF albuterol sulfate 90 mcg/actuation HFA aerosol inhaler 2 puff inhalation Q4-6H PRN (Reason: shortness of breath or wheezing) Qty: 6.7 0RF ibuprofen 600 mg tablet 600 mg PO Q8H PRN (Reason: pain) Qty: 14 0RF oseltamivir [Tamiflu] 75 mg capsule 75 mg PO BID 5 Days Qty: 9 0RF acetaminophen 500 mg tablet 500 mg PO Q6H PRN (Reason: fever or pain) Qty: 20 0RF chlorthalidone 25 mg tablet 25 mg PO DAILY 90 Days Qty: 90 1RF polyethylene glycol 3350 [Miralax] 17 gram/dose powder 238 g PO ONCE Qty: 238 0RF Rx Instructions: take as directed by GI office acetaminophen [Tylenol Extra Strength] 500 mg tablet 1,000 mg PO Q6H PRN (Reason: pain) Qty: 14 0RF Referrals: Madhavi Isaacs MD [Primary Care Provider] - Print Language: Georgian
[2024-12-23 19:22] LABS: IDNOW Serial# 55D5AD1C; Strep A Nucleic Acid Positive (Negative)
[2024-12-23 19:30] VITALS: BP 175/91; PULSE 85; RESP 20; TEMP 37; O2SAT 100
[2024-12-23] MEDS: Amoxicillin 500 MG CAPSULE PO (19:33)
[2024-12-23 20:00] LABS: Influenza A PCR NEGATIVE (Negative); Influenza B PCR NEGATIVE (Negative); Resp Syncy Virus RNA Qual PCR NEGATIVE (Negative); SARS COV2 PCR INHOUSE NEGATIVE (Negative)
== END 2024-12-23 19:39 | disposition home or self-care (01) ==
PROVIDERS: Nurse Practitioner Family; Emergency Provider Emergency Medicine Emergency Medical Services; PCP Internal Medicine
DX: J02.0 Streptococcal pharyngitis (principal); R13.10 Dysphagia, unspecified; Z03.818 Encounter for observation for suspected exposure to other biological agents ruled out
CPT/HCPCS: 0241U; 87651; 99282; 99283

== ENCOUNTER 2025-07-26 08:49 | Outpatient (AMB) | payer OTHER, SELFPAY ==
[2025-07-26 08:51] VITALS: BP 146/80; PULSE 71; RESP 18; TEMP 36.3; O2SAT 100; BMI 34.3
--- NOTE | 2025-07-26 08:51 | MHC.PC.OV ---
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 Required: No Accompanied by: Self / Same As Patient Allergies gluten (GLUTEN) Allergy (Intermediate, Verified 07/26/25 09:22) HIVES ciprofloxacin (From CIPRO) Allergy (Unknown, Verified 07/26/25 09:22) Rash PEPPERS Allergy (Severe, Uncoded 07/26/25 09:22) HIVES Medication List - Last Reconciled 07/26/25 by Madhavi Mc MD acetaminophen 500 mg PO Q6H PRN acetaminophen (Tylenol Extra Strength) 1,000 mg (2 x 500 mg) PO Q6H PRN albuterol sulfate 90 mcg/actuation 2 puffs inhalation Q4-6H PRN 30 days ascorbic acid (vitamin C) 250 mg PO DAILY blood pressure test kit-large ([employer]ch[employer] Blood Pressure Monitor kit) As directed chlorthalidone 25 mg PO DAILY 90 days cholecalciferol (vitamin D3) 50 mcg PO DAILY ferrous sulfate 325 mg PO BID ibuprofen 600 mg PO Q8H PRN lisinopril 40 mg PO DAILY 90 days loratadine 10 mg PO DAILY 30 days oseltamivir (Tamiflu) 75 mg PO BID 5 days polyethylene glycol 3350 (Miralax) 238 grams PO ONCE Tobacco use date assessed: 07/26/25 Dental Screening Dental Screen Date: 07/26/25 Did you have a dental visit in the last 12 months?: Yes Did you have a dental problem in the last 6 months where you did not have access to dental care?: No Was dental information given to patient?: Patient has dentist HPI HPI Comments History of Present Illness Details The patient is a 50-year-old female presenting for evaluation of left breast issues and bilateral knee pain. She reports left breast pain and a dark nipple discharge. Her last mammogram was in August and was noted to be normal. She has hypertension and has not take her medications yet and this is why it is elevated. Will be recheck in 3 weeks by nurse navigator. She also has anemia and low vitamin-D that will be recheck. The patient also complains of pain in both knees, which she believes is related to cartilage issues. She describes difficulty with turning movements. The patient's medication list includes Tylenol, an albuterol inhaler, Vitamin C, and chlorthalidone. She states she is out of her Vitamin D supplement. She reports not taking her chlorthalidone today. She has known allergies to gluten, ciprofloxacin, and peppers. [facility] Medical History (Updated 07/26/25 @ 09:38 by Madhavi Mc MD) At high risk for breast cancer Goiter Allergic rhinitis Impaired glucose tolerance Essential hypertension Surgical History History of tonsillectomy and adenoidectomy Family History Mother Hypertension CVD (cardiovascular disease) Breast cancer Pacemaker Father Hypertension Diabetes Parkinson's disease Brother In good health Brother In good health Son In good health Son In good health Daughter In good health Family/Other Chronic mental illness Family/Other Prostate cancer Family/Other Ovarian cancer Family/Other Ovarian cancer Social History Household Members: Spouse Housing: House Alcohol intake: never Patient Tobacco Use Status: Never used Tobacco e-Cigarette/Vaping Use: Never Used Second Hand Smoke Exposure: No service: No Current occupational status: unemployed Cognitive needs: No Hearing needs: No Vision needs: No Female Reproductive History Menstrual Age of Menarche: 9 Questionnaire Thrive Questionnaire Date Thrive assessed: 09/29/24 I am a: Patient What is your living situation today?: I have a steady place to live Within the past 12 months, did the food you bought not last and you didn't have the money to get more?: I choose not to answer this question Within the past 12 months, did you worry whether your food would run out before you got money to buy more?: I choose not to answer this question Do you have trouble paying for medicines?: No Do you have trouble getting transportation to medical appointments?: No Do you have trouble paying your heating and electricity bill?: No Do you have trouble taking care of your child, family member or friend?: No Do you have trouble with day-to-day activities such as bathing, preparing meals, shopping, managing finances, etc.?: No Are you currently unemployed and looking for a job?: I choose not to answer this question Are you interested in more education?: No Please select the resources that you would like help with: None Currently or been in a relationship where the following occur: No concerns reported THRIVE Score: 0 CHELE-7 AMB Questionnaire CHELE-7 Date CHELE - 7 assessed: 09/29/24 Source: Developed by Drs. Aquiles Damian, Sharyn Sung, Richy Maguire and colleagues, with an educational no from [employer]. Review of Systems Const All systems reviewed & are unremarkable except as noted in HPI and below Card Denies chest pain at rest, Denies chest pain with activity, Denies edema, Denies irregular heart rhythm, Denies claudication, Denies dyspnea, Denies dyspnea on exertion, Denies orthopnea, Denies paroxysmal nocturnal dyspnea and Denies slow heart rate Resp Denies cough, Denies dyspnea and Denies dyspnea on exertion GI Denies abdominal pain, Denies change in bowel habits, Denies excessive flatus, Denies nausea and Denies vomiting Aller/Immun Denies urticaria Physical exam (Primary Care) Vital Signs: Last Vital Signs Temp 97.3 F 07/26/25 08:51 Pulse 71 07/26/25 08:51 Resp 18 07/26/25 08:51 BP 146/80 H 07/26/25 08:51 Pulse Ox 100 07/26/25 08:51 Oxygen Delivery Method Room Air 07/26/25 08:51 BMI result Body Mass Index 34.3 BMI Assessment/Plan discussion: High BMI High, discussed plan: lifestyle, weight reduction, dietary and physical activity Tobacco/Smoking Status: Tobacco use Status Tobacco use date assessed 07/26/25 07/26/25 09:02 Patient Tobacco Use Status Never used Tobacco 07/26/25 09:02 e-Cigarette/Vaping Use Never Used 07/26/25 09:02 Thrive Assessment: Date of Thrive Assessment Date Thrive assessed 09/29/24 07/26/25 09:02 Currently or been in a relationship where the following occur: No concerns reported Resp Effort & Inspection: normal respiratory effort Auscultation: clear to auscultation bilaterally Cardio Jugular venous distension: no JVD Rate: regular rate Rhythm: regular rhythm Heart sounds: S1 normal heart sound present and S2 normal heart sound present Coding Level of Care Code Est Pt Level 4 (74902) Complex EM visit Add On G2211 Diagnoses Essential hypertension I10 Low vitamin D level R79.89 Breast pain, left N64.4 Iron deficiency anemia due to chronic blood loss D50.0 Left knee pain M25.562 Right knee pain M25.561 Time Spent (min) 22 Assessment & Plan Assessment & Plan (1) Essential hypertension: Code(s): I10 - Essential (primary) hypertension Category: Medical (2) Low vitamin D level: Code(s): R79.89 - Other specified abnormal findings of blood chemistry Category: Medical (3) Breast pain, left: Comment: at 12 o'clock Code(s): N64.4 - Mastodynia Category: Medical (4) Iron deficiency anemia due to chronic blood loss: Code(s): D50.0 - Iron deficiency anemia secondary to blood loss (chronic) Category: Medical (5) Left knee pain: Code(s): M25.562 - Pain in left knee Category: Medical (6) Right knee pain: Code(s): M25.561 - Pain in right knee Category: Medical Plan Plan 1. Left Breast Pain And Nipple Discharge The patient complains of left breast pain and dark nipple discharge. A diagnostic mammogram of the left breast will be ordered for further evaluation. The possibility of irritation from a brassiere was discussed as a potential contributing factor. 2. Bilateral Knee Arthralgia The patient reports pain in both knees, which she attributes to cartilage problems and notes is worse with turning. An order for bilateral knee X-rays will be placed. 3. Essential Hypertension An elevated blood pressure was noted during the visit. The patient admitted to not taking her chlorthalidone today. A follow-up appointment with the nurse for a blood pressure recheck in two weeks has been scheduled. 4. Anemia Continue ferrous sulfate. Monitor hemoglobin and hematocrit 5. Low vitamin-D Lab orders will be sent for studies in September to monitor vitamin D levels. Orders: Orders MM diagnostic mammo BI Today N64.4 - Mastodynia, N64.52 - Nipple discharge US breast LT limited Today N64.4 - Mastodynia, N64.52 - Nipple discharge Lipid Panel 2 Months E78.5 - Hyperlipidemia, unspecified Vitamin D 25-OH Total 2 Months E55.9 - Vitamin D deficiency, unspecified Complete Blood Count Auto Diff 2 Months D64.9 - Anemia, unspecified IRON PROFILE 2 Months D64.9 - Anemia, unspecified XR knee LT 2V Today M25.562 - Pain in left knee XR knee RT 2V Today M25.561 - Pain in right knee Comprehensive [place]. Panel Fast 2 Months I10 - Essential (primary) hypertension Medications: Changed From albuterol sulfate 90 mcg/actuation 2 puffs inhalation Q4-6H PRN 6.7 grams 0RF shortness of breath or wheezing J45.30 - Mild persistent asthma, uncomplicated To albuterol sulfate 90 mcg/actuation 2 puffs inhalation Q4-6H PRN 6.7 grams 1RF shortness of breath or wheezing 30 days J45.30 - Mild persistent asthma, uncomplicated Refilled cholecalciferol (vitamin D3) 50 mcg PO DAILY 90 tabs 0RF R79.89 - Other specified abnormal findings of blood chemistry ferrous sulfate 325 mg PO BID 60 tabs 6RF D64.9 - Anemia, unspecified lisinopril 40 mg PO DAILY 90 tabs 1RF 90 days chlorthalidone 25 mg PO DAILY 90 tabs 1RF 90 days Discontinued oseltamivir (Tamiflu) Discontinued Reason: Patient Completed Course 75 mg PO BID 5 days 9 caps 0RF
--- OUTSIDE RECORDS SUMMARY | 2025-07-26 09:16 | XMS_ITS | Clinical Summary ---
Author Organization [facility] Address [email or web address] [place] [id number] Phone Care Team Providers Care Ink Blender Name Role Phone Madhavi Isaacs MD Primary Care Provid er Allergies Active Allergy Reactions Criticality Noted Date Comments Ciprofloxacin Rash Low 10/31/2018 Medications lisinopril (PRINIVIL,ZESTRI L) 10 MG tablet Take 10 mg by mouth daily. Active naproxen (EC-NAPROSYN ORAL) Take by mouth. Active Social History Tobacco Use Types Packs/Day Years Used Date Smoking Tobacco: Never Smokeless Tobacco: Never Alcohol Use Standard Drinks/Week Comments No 0 (1 standard drink = 0.6 oz pur e alcohol) Education Answer Date Recorded Are you interested in more education? Not on stevenson e 01/09/2023 Are you concerned about learning? Not on file 01/09/2023 No 01/09/2023 No 01/09/2023 Digital Access Answer Date Recorded No 02/10/2023 No 02/10/2023 No 02/10/2023 Reliable internet access at home? Not on file 02/10/2023 Device with a working camera? Not on file Comments Unknown Sex and Gender Information Value Date Recorded Sex Assigned at Female 10/31/2018 4:32 PM EST Legal Sex Female 4:21 PM EST Gender Identity Female 10/31/2018 4:32 PM EST Sexual Orientation Straight 10/31/2018 4: 32 PM EST Last Filed Vital Signs Vital Sign Reading Time Taken Comments Blood Pressure 158/103 10/31/2018 6:27 PM EST Pulse 82 10/31/2018 6:27 PM EST Temperature 36.8 C (98.2 F) 10/31/2018 6:27 PM EST Respiratory Rate 18 10/31/2018 6:27 PM EST Oxygen Saturation 97% 10/31/2018 6:27 PM EST Inhaled Oxygen Concentration - - Weight 96.2 kg (212 lb) 10/31/2018 4:30 PM EST Height 177.8 cm (5' 10 ) 10/31/2018 4:30 PM EST Body Mass Index 30.42 10/31/2018 4:30 PM EST Plan of Treatment Not on file Medical Devices Not on file Insurance ACO ACO ACO ACO ACO ACO ACO ACO ACO Care Teams Ink Blender Relationship Specialty Start Date End Date Madhavi Isaacs MD [address] [place] [address] PCP - General Internal Medicine 10/31/18 Additional Source Comments The information contained in this document represents components of the legal health record. It is not the complete legal health record.[facility]
== END 2025-07-26 09:41 | disposition home or self-care (01) ==
LOC: HO.HMCH 08:49
PROVIDERS: PCP Internal Medicine; Visit Provider Internal Medicine
DX: I10 Essential (primary) hypertension (principal); R79.89 Other specified abnormal findings of blood chemistry; N64.4 Mastodynia; D50.0 Iron deficiency anemia secondary to blood loss (chronic); M25.562 Pain in left knee; M25.561 Pain in right knee

== ENCOUNTER → 2025-07-26 08:49 | Outpatient (BNVA) | payer OTHER, SELFPAY | PROVIDERS: PCP Internal Medicine; Visit Provider Internal Medicine | DX: M25.561 Pain in right knee (principal); M25.562 Pain in left knee; I10 Essential (primary) hypertension; N64.4 Mastodynia; N64.52 Nipple discharge; R79.89 Other specified abnormal findings of blood chemistry; D50.0 Iron deficiency anemia secondary to blood loss (chronic); E55.9 Vitamin D deficiency, unspecified | CPT/HCPCS: 99212 ==